=== PATIENT | female | born 1940 | race Caucasian/White ===

== ENCOUNTER 2019-10-01 08:05 | Outpatient (REF) | payer MEDICARE, OTHER, SELFPAY ==
[2019-10-01 13:18] LABS: Chol HDL Ratio 4.18 mg/dL (0.0-4.40); Cholesterol 167 mg/dL (0-200); Glucose 99 mg/dL (65-115); HDL Cholesterol 40 mg/dL (60-100); LDL Cholesterol Calculated 101 mg/dL (50-129); LDL HDL Ratio 2.53 RATIO (0.00-3.22); Triglycerides 131 mg/dL (0-150)
[2019-10-01 13:48] LABS: Estmated Average Glucose 126
== END 2019-10-01 08:06 | disposition home or self-care (01) ==
LOC: LAB 08:05
PROVIDERS: Family Provider Family Medicine; Visit Provider Dermatology
DX: Z01.89 Encounter for other specified special examinations (principal)
CPT/HCPCS: 80061; 82947; 83036

== ENCOUNTER 2020-03-07 15:14 | Outpatient (CLI) | payer MEDICARE, OTHER, SELFPAY ==
--- NOTE | 2020-03-07 16:00 | CT_ITS ---
WS: [id number] CT of the lumbar spine, additional two-dimensional coronal and sagittal imaging was obtained. 03/07/20 Clinical Data: chronic back pain Comparison: None. DLP: 1944.[address] scans at [facility] use at least one of these dose optimization techniques: automat ed exposure control; mA and/or kV adjustment per patient size (includes targeted exams where dose is matched to clinical indication); or iterative reconstruction. Findings: There is an old compression fracture of the anterior superior margin of the L5 vertebral eb dy with loss of 25% of the vertebral body height. There is degenerative disc disease at L5-S1. There is also degenerative disc disease at T12-L1. Minimal osteoarthritic spurring is seen. There is diffus e osteoporosis. The transverse processes and SI joints are not remarkable. There is calcification of the wall of the abdominal aorta which is tortuous but there is no aneurysm. There are probably gallst ones. T12-L1: There is broad disc bulging with mild canal stenosis. L1-L2: There is broad-based disc bulging causing canal stenosis along with facet joint arthritis caus ing foraminal stenosis. L2-L3: There is broad-based disc bulging causing canal stenosis along with facet joint arthritis caus ing foraminal stenosis. L3-L4: There is broad-based disc bulging causing canal stenosis along with ligamentum flavum hypertro phy and facet joint hypertrophy causing foraminal stenosis L4-L5: There is broad-based disc bulging along with facet joint arthritis causing canal and foraminal stenosis. L5-S1: There is a broad base disc bulge along with facet joint arthritis causing canal and foraminal stenosis. CT/CT lumbar spine wo con* [id number] Impression: 1. Probable old compression fracture of the anterior superior margin of L5. 2. Degenerative disc disease at L5-S1 and also T12-L1. 3. Diffuse osteoporosis. 4. Mild osteoarthritic spurring. 5. Multilevel disc bulging and facet joint hypertrophy causing canal and forami nal stenosis.
== END 2020-03-07 15:15 | disposition home or self-care (01) ==
LOC: RADWPI 15:24
PROVIDERS: Family Provider Family Medicine; PCP Family Medicine; Visit Provider Family Medicine
DX: G89.29 Other chronic pain (principal); M51.37 Other intervertebral disc degeneration, lumbosacral region; M81.0 Age-related osteoporosis without current pathological fracture; M48.061 Spinal stenosis, lumbar region without neurogenic claudication
CPT/HCPCS: 72131

== ENCOUNTER → 2020-05-30 11:32 | Outpatient (BNVA) | payer MEDICARE, OTHER, SELFPAY | PROVIDERS: Family Provider Family Medicine; PCP Family Medicine; Visit Provider Family Medicine | DX: I10 Essential (primary) hypertension (principal); M51.36 Other intervertebral disc degeneration, lumbar region | CPT/HCPCS: 80053; 85025 ==

== ENCOUNTER → 2020-08-24 13:50 | Outpatient (BNVA) | payer MEDICARE, OTHER, SELFPAY | PROVIDERS: Family Provider Family Medicine; PCP Family Medicine; Visit Provider Obstetrics & Gynecology | DX: N81.4 Uterovaginal prolapse, unspecified (principal); R33.9 Retention of urine, unspecified; Z79.899 Other long term (current) drug therapy | CPT/HCPCS: 87086 ==

== ENCOUNTER → 2020-11-16 14:58 | Outpatient (BNVA) | payer MEDICARE, OTHER, SELFPAY | PROVIDERS: Family Provider Family Medicine; PCP Family Medicine; Visit Provider Obstetrics & Gynecology | DX: N89.8 Other specified noninflammatory disorders of vagina (principal) | CPT/HCPCS: 87210 ==

== ENCOUNTER → 2021-01-03 08:25 | Outpatient (BNVA) | payer MEDICARE, OTHER, SELFPAY | PROVIDERS: Family Provider Family Medicine; PCP Family Medicine; Visit Provider Family Medicine | DX: I10 Essential (primary) hypertension (principal) | CPT/HCPCS: 80053; 85025 ==

== ENCOUNTER → 2021-01-11 09:59 | Outpatient (BNVA) | payer MEDICARE, OTHER, SELFPAY | PROVIDERS: Family Provider Family Medicine; PCP Family Medicine; Visit Provider Obstetrics & Gynecology | DX: N81.10 Cystocele, unspecified (principal); Z20.822 Contact with and (suspected) exposure to COVID-19 | CPT/HCPCS: 87635 ==

== ENCOUNTER 2021-01-17 09:29 | Observation (INO) | payer MEDICARE, OTHER, SELFPAY ==
[2021-01-15 10:31] VITALS: BMI 22.8
--- NOTE | 2021-01-15 10:42 | ECG_ITS ---
[facility] Test Date: 2021-01-15 Pat Name: Noris Oliveros Department: Room: Gender: Female Tub Chucker: : 1940 Requested By: Rachael Talley Order Number: [id number] Bellamy MD: Ramin Pace M.D. Measurements Intervals [place] Rate: 57 P: 88 VT: 160 QRS: -9 QRSD: 72 T: 25 QT: 446 QTc: 437 Interpretive Statements SINUS BRADYCARDIA No previous ECG available for comparison Electronically Signed On 01-15-2021 16:20:51 CDT by Ramin Pace M.D. [id number]
--- NOTE | 2021-01-15 11:00 | ANES.PREANE2 ---
Pre-Anesthetic Assessment Pre-Anesthetic Assessment: Height/Weight: Height 1.68 m Weight 64.41 kg Preop Diagnosis: cystocele Proposed Procedure: Operation Date: 01/17/21 13:05 Proposed Procedures p Anterior Repair Anterior Colporrhaphy 00853 [id number] N81.10(Not Applicable) - Sang Peraza MD s Sling(Not Applicable) - Sang Peraza MD s Sacrospinous Ligament Fixation(Not Applicable) - Sang Peraza MD Familial anesthetic complications: None Social: Social History: No alcohol and No tobacco Exam: Pre-Anes Outpt Exam: alert, oriented x 3, clear to auscultation bilaterally and regular rate & rhythm Airway: Cervical ROM: WNL MP: 3 Dentition: Full CV/HEM: CV/HEM: HTN Anesthetic Plan: ASA status: 2 Anesthesia: General Risk of > 500 ml blood loss (7ml/kg in children): No PFSH Anesthesia PFSH: Medical History Degenerative disc disease, lumbar Hypertension Sacroiliac inflammation Surgical History History of appendectomy History of total hysterectomy (~1985) SRINIVAS. Performed by Dr. Britt at [facility] in [place], [place]. Family History Sister Diabetes Hypertension Heart disease Family/Other Breast cancer maternal aunt 80's, maternal niece, maternal cousin 40's Denies family history of Colon cancer Ovarian cancer Clotting disorder Hyperlipidemia Anesthesia complication Bleeding disorder Uterine cancer Thyroid condition Stroke Social History (Updated 01/15/21 @ 07:57 by Libby Augustine RN) Smoking and tobacco status: never smoked Alcohol intake: never Substance/Drug Use: never Data Anesthesia Cardiac Studies: No Data to Display
[2021-01-17] VITALS (13 sets, daily range): BP systolic 97–174; BP diastolic 54–85; PULSE 51–67; RESP 18–20; TEMP 36.2–36.6; O2SAT 95–100
[2021-01-17] MEDS: sodium chloride 0.9% 500 ML IV ×3 (07:19→23:04)
[2021-01-17] MEDS: scopolamine 1.5 Patch 1 PATCH TRANSDERMA (07:25)
[2021-01-17 07:28] LABS: Basophils % 0.5 %; Eosinophils # 0.1 10^3/uL (0.0-0.8); Eosinophils % 1.5 %; Hematocrit 37.4 % (37.0-47.0); Hemoglobin 12.7 g/dL (11.5-15.3); Lymphocytes % 17.2 %; Mean Corpuscular Hemoglobin 28.9 pg (28.0-34.0); Monocytes # 0.6 10^3/uL (0.2-0.9); Monocytes % 9.7 %; Neutrophils # 4.29 10^3/uL (1.8-7.7); Neutrophils % 70.8 %; Nucleated Red Blood Cells % 0 %; Platelet Count 239 10^3/cmm (130-400); Red Cell Distribution Width 13.1 % (12.1-15.1); White Blood Count 6.1 10^3/uL (4.0-10.0)
--- NOTE | 2021-01-17 07:33 | P.ANESUD_ITS ---
Pre-Anesthetic Update Pre-Anesthetic Assessment: Date of Surgery/Procedure: 01/17/21 Preop Irma gnosis: POP Q stage III cystocele Proposed Procedure: Operation Date: 01/17/21 08:00 Proposed Procedures p Anterior Repair Anterior Colporrhaphy 55327 [id number] N81.10(Not Applicable) - Sang Peraza MD s Sling(Not Applicable) - Sang Peraza MD s Sacrospinous Ligament Fixation(Not Applicable) - Sang Peraza MD Any changes to Pre-Anesthetic Assessment?: No Last Intake: Intake Last Liquid Date 01/16/21 Last Liquid Time 18:00 Last Solid Date 01/16/21 Last Solid Time 18:00 Labs Last 48hrs: Laboratory Results - last 48 hr 01/17/21 07:15 WBC 6.1 RBC 4.40 Hgb 12.7 Hct 37.4 MCV 85.0 MCH 28.9 MCHC 34.0 RDW 13.1 Plt Count 239 MPV 10.0 Neut % (Auto) 70.8 Lymph % (Auto) 17.2 [place] % (Auto) 9.7 Eos % (Auto) 1.5 Baso % (Auto) 0.5 Neut # (Auto) 4.29 Lymph # (Auto) 1.0 [place] # (Auto) 0.6 Eos # (Auto) 0.1 Baso # (Auto) 0.0 Nucleated RBC % (a uto) 0 Nucleated RBCs # 0.0 Vitals: Temperature 97.6 F 01/17/21 07:08 Temperature Source Temporal Artery S can 01/17/21 07:08 Pulse Rate 66 01/17/21 07:08 Respiratory Rate 18 01/17/21 07:08 Blood Pressure 174/85 01/17/21 07:08 Blood Pressure Amirah n 114 01/17/21 07:08 Pulse Oximetry 97 01/17/21 07:08 Oxygen Delivery Me thod 01/17/21 07:08 Exam: Pre-Anes Outpt Exam: alert, oriented x 3, clear to auscultation bilaterally and regular rate & rhythm Cardiac Studies: No Data to Display
--- NOTE | 2021-01-17 07:45 | W.PM.OPSUD ---
Surgery/Procedure H&P Update DATE OF PROCEDURE: January 17, 2021 DATE H&P PERFORMED: 01/15/21 H&P UPDATE INFORMATION: I have reviewed H&P completed within last 30 days, I have examined patient prior to procedure and No changes to prior documentation PREOP DIAGNOSIS: POP Q stage III cystocele PLANNED PROCEDURE: Operation Date: 01/17/21 08:00 Proposed Procedures p Anterior Repair Anterior Colporrhaphy 37087 [id number] 10529 N81.10(Not Applicable) - Sang Peraza MD s Sling(Not Applicable) - Sang Peraza MD s Sacrospinous Ligament Fixation(Not Applicable) - Sang Peraza MD
[2021-01-17 07:54] LABS: Alanine Aminotransferase 16 U/L (0-33); Albumin Level 4.5 g/dL (3.5-5.2); Alkaline Phosphatase 61 IU/L (35-105); Anion Gap 14.4 (5-19); Aspartate Amino Transferase 28 U/L (0-32); Blood Urea Nitrogen 12 mg/dL (8-23); Calcium 9.8 mg/dL (8.5-10.5); Carbon Dioxide 28 mmol/L (22-29); Chloride 96 mmol/L (98-107); Globulin 4.2 g/dL (1.3-4.6); Glucose 107 mg/dL (65-115); Osmolality Calculated 280 mOsm/kg (285-295); Potassium 3.4 mmol/L (3.5-5.1); Sodium 135 mmol/L (136-145); Total Bilirubin 0.5 mg/dL (0.15-1.2); Total Protein 8.7 g/dL (6.6-8.7)
[2021-01-17] MEDS: sodium chloride 0.9% 1,000 ML 30 ML IV (07:54)
[2021-01-17 09:04] LABS: Add Urine Microscopic? NO; Charge for UA Resulting for Rev
--- NOTE | 2021-01-17 09:05 | P.OP_ITS ---
Operative Report Date of procedure: January 17, 2021 Pre-op Diagnosis: POP Q stage III cystocele Post-op diagnosis: same Procedure Done: Anterior colporrhaphy augmented with allograft and single incision mid urethral sling Pathology: none sent Surgeon: Sang Peraza MD Anesthesia: General Estimated blood loss (mL): 5 IV fluids (mL): 1,000 Urine output (mL): 300 Condition: stable Disposition: PACU Brief History: Mrs. Oliveros 80-year-old female with cystocele stage III and urinary stress incontinence. Procedure: After obtaining informed consent, the patient was taken to the operating room and placed in the supine position, given general anesthesia, and prepped and draped in sterile fashion. The abdomen, vulva and vagina were prepped and draped in a sterile manner. A time out procedure was performed. The anterior vaginal mucosa beneath the midurethra was infiltrated with 0.5% Marcaine with epinephrine. A vertical midline incision was made beneath the midurethra, nearly 1.5 cm length. Careful submucosal dissection was performed bilaterally up to the interior portion of the inferior pubic ramus. The insertion of adductor longus tendon on the patient?s pubic ramus was identified as reference land christen. Palpated the notch along the internal edge of ischiopubic ramus where the adductor longus tendon and the inferior pubic ramus meet. The Altis single incision sling (SIS) was selected. With thin porcine graft the mesh of the sling was lined anteriorly and posteriorly with the graft. Then the needle of the SIS inserted aiming at the location of this notch. One of the integrated self-fixating tips place onto the needle by sliding it over the end of the needle. The needle/sling assembly was inserted toward the location of identified reference notch making sure that the flat of the handle is perpendicular to the desired path. The needle was tracked along the posterior surface of the ischiopubic ramus until the midline christen on the mesh is approximately at the midline position under the urethra. The needle was removed and the same was repeated on the contralateral side until the appropriate sling tension under the urethra was achieved ensuring that the mesh lays flat. The needle was removed and vaginal incision was closed in a running interlocking fashion with 2-0 Vicryl. Then proceed to perform the anterior colporrhaphy. The vaginal mucosa was then injected in the midline with normal saline. The vaginal mucosa was scored in the midline with the Bovie approximately 1 cm medial to the urethral meatus to 1 cm distal to the vaginal cuff. This vaginal mucosa was then undermined and then incised in the midline with the Metzenbaum scissors. The lateral aspects of the vaginal mucosa were then grasped with the Allis clamps and the vaginal mucosa was then dissected off the underlying fascia with the Metzenbaum scissors. Again, there was noted to be quite a bit of oozing at the incision, which was controlled with cautery. After adequate dissection was performed, bilaterally. An Coloplast Allograft is modified at time of application to fit spacea, 3 x 3 cm piece . The Allograft was placed in front of cystocele ready to be implanted facing the vagina mucosa. Suture is placed at distal end of graft and placed towards vaginal cuff. Final suture is placed on proximal portion of the graft to complete the placement overlying the bladder. Then Interrupted vertical mattress sutures of 0 Vicryl were used to elevate the cystocele superiorly. The excessive vaginal mucosa was then trimmed with the Metzenbaum scissors and the vaginal mucosa was then reapproximated in the running interlocking fashion with 2-0 Vicryl. Then the Shearer catheter was removed and cystoscope was inserted. The bladder w as filled with sterile water. Complete evaluation of the bladder mucosa was performed noting no lacerations, dimpling, tears, bleeding of the mucosa or muscular layers. Both ureteral orifices were identified. Prompt excretion of urine from both ureteral orifices was noted. Cystoscope was withdrawn. The Shearer catheter was replaced. Excellent hemostasis was obtained. A vaginal pack is placed overnight as postoperative support for the vaginal tissues after graft placement and closure of vaginal incisions. Sponge, lap, needle, and instrument counts were correct times three. The patient was taken to the recovery room, awake and in stable condition. Associated Problem List Diagnoses (1) POP-Q stage 3 cystocele:
--- NOTE | 2021-01-17 09:20 | SUR.PHASEI ---
PT AWAKE ALERT DENIES PAIN AND NAUSEA, PT TALKATIVE WITH DR MARIE NO COMPLAINTS, VSS.
[2021-01-17 09:23] LABS: Bilirubin Urine Neg (Negative); Blood Urine Neg (Negative); Glucose Urine UA Norm (Normal); Ketones Urine Negative (Negative); Leukocyte Esterase Urine Negative (Negative); Nitrate Urine Negative (Negative); Protein Urine Neg (Negative); Specific Gravity, Urine 1.005 (1.005-1.030); Sulfosalicylic Acid Urine Negative (Negative); Urine Appearance Clear (CLEAR); Urine Color Straw (Yellow); Urobilinogen Urine Norm (Negative); pH Urine 8 (5-7)
--- NOTE | 2021-01-17 10:04 | PC.NURSE ---
Patient arrived to OB floor from PACU at this time, Pain 0/10. No complaints or needs at this time
[2021-01-17] MEDS: ketorolac 30 mg/mL INJ IVP ×3 (11:03→23:04)
--- NOTE | 2021-01-17 13:52 | ANE.PACU2 ---
Inpatient post-anesthesia follow up: Airway intact: Yes Vital signs: Temperature 97.7 F Pulse Rate 67 Respiratory Rate 18 Blood Pressure 122/58 Pulse Oximetry 96 Oxygen Delivery Me thod Room Air Oxygen Flow Rate 8 Fraction of Inspir ed Oxygen Hydration adequate: Yes Nausea and vomiting: No Pain level: 3 Mental status: Baseline
--- NOTE | 2021-01-17 15:21 | PC.NURSE ---
Went into patients room to get patient up to chair, she states that she would like to nap and will call out when she would like to get up.
[2021-01-17] MEDS: docusate sodium 100 mg Capsule PO (17:28)
[2021-01-17] MEDS: dextrose 5%-lactated ringers 1,000 ML 125 ML IV (17:28)
[2021-01-18 00:13] VITALS: BP 131/65; PULSE 64; RESP 16; O2SAT 97
[2021-01-18] MEDS: dextrose 5%-lactated ringers 1,000 ML 125 ML IV (02:15)
[2021-01-18 04:45] VITALS: BP 149/65; PULSE 60; RESP 16; O2SAT 97
[2021-01-18 04:55] LABS: Hematocrit 29.5 % (37.0-47.0); Hemoglobin 9.7 g/dL (11.5-15.3); Mean Corpuscular HGB Conc 32.9 g/dL (30.0-36.0); Mean Corpuscular Hemoglobin 28.6 pg (28.0-34.0); Platelet Count 165 10^3/cmm (130-400); Red Blood Count 3.39 10^6/uL (4.1-5.3); Red Cell Distribution Width 13.3 % (12.1-15.1); White Blood Count 7.3 10^3/uL (4.0-10.0)
--- NOTE | 2021-01-18 08:11 | P.DS_ITS ---
Discharge Providers PRODUCT SAFETY ASSOCIATE Date of Admission: 01/17/21 09:29 Date of Discharge: 01/18/21 Attending Provider at Admission: Sang Peraza MD Attending Provider at Discharge: Sang Peraza MD Primary Care Provider: Abeba Han MD Diagnoses at Discharge Discharge Diagnosis (1) Anemia: Status: Acute (2) Status post anterior colporrhaphy: Status: Acute Reason for Visit Reason for Visit: cystocele stage 3 Hospital Course Hospital Course Mrs. Henderson 80-year-old female with cystocele stage III. Admitted for an anterior colporrhaphy augmented with allograft and mid urethral sling. The procedures were performed without complications. Overnight observation uneventful for decrease urine output, given IV bolus. She is afebrile and hemodynamically stable. Tolerating diet well. Refers no pain. Ambulating without difficulty.. Physical Exam Narrative: EXAM NARRATIVE: GA: Alert and oriented ?3. HEENT: WNL. Heart: Regular rate and rhythm. Lungs: Clear to auscultation bilaterally. Abdomen: Bowel sounds present, nontender, minimal tenderness, incision clean and dry, no redness, pain or edema. SANDWICH AND DRINK CART OPERATOR: Spotting. Extremities: No edema, no cyanosis, no calves pain. Urinary Catheter Management^: Shearer: Cath Placed During This Visit: yes, but has since been removed by the nurse Reason for Continuing Indwelling Catheter: Decision to DC Catheter Urinary Catheter Date of Insertion: 01/17/21 Urinary Catheter Time of Insertion: 08:15 Date Urinary Catheter Removed: 01/18/21 Time Urinary Catheter Discontinued: 06:26 Discharge Data Data Completed and Pending: Pending at discharge Category Date Time Status Retype for Jasbir s ABO/Rh Routine Lab 01/17/21 09:39 Ordered Labs from last 24 hours 01/18/21 01/17/21 01/17/21 04:40 08:15 07:15 WBC 7.3 RBC 3.39 L Hgb 9.7 L Hct 29.5 L MCV 87.0 MCH 28.6 MCHC 32.9 RDW 13.3 Plt Count 165 MPV 10.0 Urine Color Straw Urine Appearance Clear Urine pH 8 H Ur Specific Gravit y 1.005 Urine Protein Neg Urine Glucose (UA) Norm Urine Ketones Negative Urine Blood Neg Urine Nitrate Negative Urine Bilirubin Neg Prot Sulfosalicyli c Acd Negative Urine Urobilinogen Norm Ur Leukocyte Jaclyn ase Negative Blood Type O Positive Rho(D) Type Positive / 4+ Antibody Screen Negative Vitals: Last Vital Signs Temp 97.7 F 01/17/21 16:35 Pulse 60 01/18/21 04:45 Resp 16 01/18/21 04:45 BP 149/65 01/18/21 04:45 Pulse Ox 97 01/18/21 04:45 Discharge Plan Discharge Patient Disposition: Home Condition: Stable Prescriptions: New acetaminophen 325 mg capsule 325 mg PO Q4H PRN (Reason: fever or postoperative pain pain) Qty: 60 RF: 0 ibuprofen 800 mg tablet 800 mg PO TID PRN (Reason: pain) Qty: 60 RF: 0 docusate sodium [Colace] 100 mg capsule 100 mg PO BID Qty: 60 RF: 0 ferrous sulfate [Iron (ferrous sulfate)] 325 mg (65 mg iron) tablet 325 mg PO BID Qty: 60 RF: 0 Continued aspirin [Adult Low Dose Aspirin] 81 mg tablet,delayed release (DR/EC) 81 mg PO DAILY RF: 0 amlodipine 2.5 mg tablet 2.5 mg PO DAILY Qty: 90 RF: 1 hydrochlorothiazide 25 mg tablet 25 mg PO DAILY Qty: 90 RF: 1 metoprolol tartrate 50 mg tablet 50 mg PO DAILY Qty: 90 RF: 1 Discharge Orders: Discharge Order (Routine); Ordered 01/18/21 Ordered By: Sang Peraza Referrals: Sang Peraza MD [Physician] - 2 weeks (If discharged home with a Shearer catheter follow-up at the clinic Friday) Discharge Diet: Usual diet Discharge Activity: Increase activity as tolerated Patient Instructions: Opioid Safety, Anterior Vaginal Repair (DC), Bladder Sling Procedures (DC) Activity Restrictions/Additional Instructions: 1. Please call [facility] on next working day to make your post-operative appointment in 2 weeks. 2. Please stay home until you come back to the clinic on first post-operative check up. 3. Please follow instructions on your medications CAREFULLY. 4. If you have abdominal incision, do not cover it unless dressing is necessary because of drainage. OK to shower, but avoid bath. Leave steri-strips until they fall off. If they are still on one week after surgery, you may remove them. 5. If you had vaginal surgery or vaginal repair, Dr. Peraza may instruct you to take SITZ bath. 6. Yellow, blood tinged odorous vaginal discharge is usually normal after hysterectomy or vaginal surgeries. 7. No sexual intercourse, tampons, or douches until you are completely released from the post-operative care. 8. Avoid constipation by eating right and maybe using some Metamucil or Milk of Magnesia. 9. All prescription refills are given during the working hours. Please do no wait till it runs out. Call the clinic at [phone] before your medication runs out. The clinic will get in touch with your doctor to prescribe medications if necessary. 10. Please remain within 40 mile radius from our hospital because emergencies do happen now and then during the post-operative period. 11. If you have stairs at home, take one step at a time slowly and minimize the number of trips. It helps to stay in one floor for the next few days. No lifting except what you can lift by one hand until you are released from the post-operative care. 12. Driving is discouraged until you are well healed. It may be 3-4 weeks before you feel strong enough to drive. You should be able to turn and look through the rear window without pain and you should be able to push the brake pedal very hard without pain before you drive. No fast rules, but SAFETY should be your primary concern. DO NOT drive if you are on sedating medications such as narcotics. 13. Call the clinic (during working hours) to make urgent appointment or go to the Emergency room, if any of the following occurs: i. Vaginal bleeding becomes heavy, more than a period. ii. Incision becomes red and sore, or drains pus. iii. Your temperature is over 100.4 or you have chill. iv. IV site becomes red and swollen (a little ``knot?? is usually OK) v. Persistent nausea and vomiting vi. Persistent constipation or diarrhea vii. Rash or allergic reaction to medications. Discharge Attestations PRODUCT SAFETY ASSOCIATE Time Spent in Discharge Care*: greater than 30 min Coding Level of Care Code Acute Vault Installer for Marcela Mccormick Diagnoses Anemia D64.9 Status post anterior colporrhaphy Z98.890
[2021-01-18] MEDS: ibuprofen 800 mg tablet PO (09:13)
[2021-01-18] MEDS: amlodipine 5 mg Tablet 2.5 MG PO (09:14)
[2021-01-18] MEDS: docusate sodium 100 mg Capsule PO (09:14)
[2021-01-18] MEDS: aspirin 81 mg EC Tablet PO (09:14)
[2021-01-18] MEDS: metoprolol tartrate 50 mg Tablet PO (09:14)
[2021-01-18] MEDS: hydroCHLOROthiazide 25 mg Tablet PO (09:14)
[2021-01-18 09:21] VITALS: BP 152/69; PULSE 69; RESP 16; TEMP 36.7; O2SAT 98
== END 2021-01-18 10:10 | disposition home or self-care (01) ==
LOC: OBGYN 09:30
PROVIDERS: Admitting Provider Obstetrics & Gynecology; PCP Family Medicine; Visit Provider Obstetrics & Gynecology
PROC: 0JQC0ZZ Repair Pelvic Region Subcutaneous Tissue and Fascia, Open Approach (ICD-10-PCS; CPT 57240; principal; 2021-01-17 08:00)
PROC: (CPT 57288; 2021-01-17 08:00)
PROC: 0TJB8ZZ Inspection of Bladder, Via Natural or Artificial Opening Endoscopic (ICD-10-PCS; CPT 52000; 2021-01-17 08:00)
DX: N81.10 Cystocele, unspecified (principal); D64.9 Anemia, unspecified; I10 Essential (primary) hypertension; M19.90 Unspecified osteoarthritis, unspecified site; Z79.82 Long term (current) use of aspirin; Z82.49 Family history of ischemic heart disease and other diseases of the circulatory system; Z83.3 Family history of diabetes mellitus
CPT/HCPCS: 57240; 57288; 36415; 51798; 80053; 81003; 85025; 85027; 86850; 86900; 93005; C1713; C1762; G0378; J0690; J1100; J1885; J2405; J2704; J3010; J3490; J7030; J7040

== ENCOUNTER 2021-03-20 09:31 | Outpatient (CLI) | payer MEDICARE, OTHER, SELFPAY ==
--- NOTE | 2021-03-20 09:46 | MM_ITS ---
WS: [id number] Exam: [id number] Date/Time of Exam: 03/20/2021 9:46 AM Reason For Exam: SCREENING VIEWS: MLO and CC views both breasts. Comparison made with prior exam of 08/23/2015, 05/18/2018, 07/29/2019.. Findings: There was no sign of mass, architectural distortion or suspicious calcification in either breast. He terogeneously dense MM/[id number] Impression: BI-RADS: 2-Benign FOLLOW-UP: 1 Year Follow-up This mammogram was also analyzed by the Computer Aided Detection System R2 Imag e Industrial Electrician.
== END 2021-03-20 09:32 | disposition home or self-care (01) ==
LOC: RADSHAW 09:38
PROVIDERS: PCP Family Medicine; Visit Provider Family Medicine
DX: Z12.31 Encounter for screening mammogram for malignant neoplasm of breast (principal)
CPT/HCPCS: 77067

== ENCOUNTER → 2021-04-05 11:13 | Outpatient (BNVA) | payer MEDICARE, OTHER, SELFPAY | PROVIDERS: PCP Family Medicine; Visit Provider Family Medicine | DX: D64.9 Anemia, unspecified (principal); M46.1 Sacroiliitis, not elsewhere classified; M51.36 Other intervertebral disc degeneration, lumbar region | CPT/HCPCS: 85018 ==

== ENCOUNTER → 2021-06-08 10:40 | Outpatient (BNVA) | payer MEDICARE, OTHER, SELFPAY | PROVIDERS: PCP Family Medicine; Visit Provider Family Medicine | DX: Z20.822 Contact with and (suspected) exposure to COVID-19 (principal) | CPT/HCPCS: 87426 ==

== ENCOUNTER 2021-06-09 12:34 | Inpatient (IN) | payer MEDICARE, OTHER, SELFPAY ==
[2021-06-09] VITALS (12 sets, daily range): BP systolic 118–149; BP diastolic 71–88; PULSE 74–92; RESP 16–20; TEMP 36.8–38.3; O2SAT 91–97; BMI 22.2
--- NOTE | 2021-06-09 12:49 | ED_ITS ---
HPI - COVID General: Chief Complaint: COVID symptoms Stated Complaint: Covid+, referred by for poss infusion Time Seen by Provider: 06/09/21 12:43 History of Present Illness: HPI Narrative: 80-year-old female presents due to being Covid positive requiring infusion. States she has a mild cough. Diagnosed yesterday. Symptoms started 3 days ago. Denies any chest pain shortness of breath. Denies any fevers or chills. She states she does not desire further work-up and is here for Covid antibody infusion. COVID Results: SARS-CoV-2 Antigen (Rapid) Positive (Negative) H 06/08/21 10:40 06/08/21 Nasal/Oral Coronavirus 2019 PCR Not detected 01/11/21 09:59 01/11/21 Review of Systems Narrative: - CONSTITUTIONAL: Denies weight loss, fever and chills. - HEENT: Denies changes in vision and hearing. - RESPIRATORY: As above - CV: Denies palpitations and CP. - GI: Denies abdominal pain, nausea, vomiting and diarrhea. - : Denies dysuria and urinary frequency. - MSK: Denies myalgia and joint pain. - SKIN: Denies rash and pruritus. - NEUROLOGICAL: Denies headache, weakness, numbness and syncope. - PSYCHIATRIC: Denies suicidal ideation PFSH ED PFSH: Medical History Degenerative disc disease, lumbar Hypertension Sacroiliac inflammation Surgical History History of appendectomy History of total hysterectomy (~1985) SRINIVAS. Performed by Dr. Britt at [facility] [place] in [place], [place]. Family History Sister Diabetes Hypertension Heart disease Family/Other Breast cancer maternal aunt 80's, maternal niece, maternal cousin 40's Denies family history of Colon cancer Ovarian cancer Clotting disorder Hyperlipidemia Anesthesia complication Bleeding disorder Uterine cancer Thyroid condition Stroke Social History Smoking and tobacco status: never smoked Alcohol intake: never Physical Exam Narrative: EXAM NARRATIVE: - GENERAL: Alert and oriented x 3. No acute distress. Well-nourished. - EYES: EOMI. Anicteric. - HENT: Atraumatic, no C-spine tenderness. Moist mucous membranes. No scleral icterus. No cervical lymphadenopathy. - LUNGS: Clear to auscultation bilaterally. No accessory muscle use. Equal lung sounds bilaterally. No respiratory distress. - CARDIOVASCULAR: Regular rate and rhythm. No murmur. No JVD. - ABDOMEN: Soft, non-tender and non-distended. Negative CVA tenderness bilaterally, no rebound or guarding, negative Dixon sign. No palpable masses. - EXTREMITIES: No edema. Non-tender. - SKIN: No rashes or lesions. Warm. - NEUROLOGIC: No meningismus or focal neurological deficits. CN II-XII grossly intact. - PSYCHIATRIC: Cooperative. Appropriate mood and affect. Course Vital Signs: Vital signs: Vital Signs Temperature 98.2 F 06/09/21 12:48 Pulse Rate 85 06/09/21 12:48 Respiratory Rate 16 06/09/21 12:48 Blood Pressure 140/83 06/09/21 12:48 Pulse Oximetry 96 06/09/21 12:48 MDM - COVID MDM Narrative: Medical decision making narrative: 80-year-old female presents due to being Covid positive and wanting region fusion. She does meet criteria for infusion. Otherwise she is medically stable afebrile nontoxic-appearing. She is asymptomatic other than mild cough. She states he does not desire any further work-up at this time I think this is reasonable. Region fusion provided without acute reaction. At this time I believe patient would be safe for discharge and outpatient follow-up. Return precautions provided. Plan was reviewed with the patient who expressed understanding. Questions answered. Patient will follow up with PCP. Patient discharged in stable condition. COVID Results: SARS-CoV-2 Antigen (Rapid) Positive (Negative) H 06/08/21 10:40 06/08/21 Nasal/Oral Coronavirus 2019 PCR Not detected 01/11/21 09:59 01/11/21 Monoclonal Antibody - ED Inclusion/Exclusion Criteria age >/= 12 years, weight >/= 40kg /88lbs, symptom onset less than 10 days ago and + direct Sars-Cov-2 test less than 7-10 days ago age >/= 65 not requiring hospitalization, not requiring oxygen (if not chronically on oxygen) and no increase oxygen requirement (if chronically on oxygen) Patient education patient/family/caregiver received/reviewed fact sheet, Emergency Use Authorization/unapproved drug status discussed with patient/family/caregiver, alternatives to this treatment discussed with patient/family/caregiver, risks and benefits of medication reviewed with patient/family/caregiver, patient/family/caregiver given opportunity for questions, which were answered and patient consents to receiving Monoclonal Antibody Treatment Plan for treatment Meets criteria for Monoclonal Antibody infusion Date of symptom(s) onset: 06/06/21 Where are the positive COVID test results, if positive?: Resulted in [facility] Ordering Monoclonal Antibody infusion for today Discharge Plan Discharge Patient Disposition: Home Clinical Impression: COVID-19 Condition: Stable Prescriptions: No Action oxybutynin chloride 5 mg tablet extended release 24hr 5 mg PO DAILY 30 Days Qty: 30 RF: 0 aspirin [Adult Low Dose Aspirin] 81 mg tablet,delayed release (DR/EC) 81 mg PO DAILY RF: 0 amlodipine 2.5 mg tablet 2.5 mg PO DAILY Qty: 90 RF: 1 hydrochlorothiazide 25 mg tablet 25 mg PO DAILY Qty: 90 RF: 1 metoprolol tartrate 50 mg tablet 50 mg PO DAILY Qty: 90 RF: 1 acetaminophen 325 mg capsule 325 mg PO Q4H PRN (Reason: fever or postoperative pain pain) Qty: 60 RF: 0 ibuprofen 800 mg tablet 800 mg PO TID PRN (Reason: pain) Qty: 60 RF: 0 Discharge Orders: Discharge ED (Routine); Ordered 06/09/21 Ordered By: Ronald Trejo Referrals: Abeba Han MD [Primary Care Provider] - Patient Instructions: Opioid Safety Coding Level of Care Code ED Cylinder Press Feeder for Marcela Mccormick
--- NOTE | 2021-06-09 13:37 | PC.NURSE ---
Called Jin at [phone] and notified him of progress.
--- NOTE | 2021-06-09 14:35 | PC.NURSE ---
Pt infusion complete. Pt is on 1 hour wait time until 1530.
--- NOTE | 2021-06-09 14:40 | PC.NURSE ---
Called and notified the son that the pt is on 1 hour post infusion time.
--- NOTE | 2021-06-09 15:38 | ECG_ITS ---
[facility] Test Date: 2021-06-09 Pat Name: Noris Oliveros Department: Room: Gender: Female Hand Counter: : 1940 Requested By: Ronald Trejo Order Number: [id number] Mia MD: Ruthie Brizuela M.D. Measurements Intervals [place] Rate: 71 P: -32 CT: 134 QRS: 63 QRSD: 81 T: 1 QT: 415 QTc: 454 Interpretive Statements SINUS RHYTHM WITH OCCASIONAL SUPRAVENTRICULAR PREMATURE COMPLEXES MINIMAL VOLTAGE CRITERIA FOR LVH, CONSIDER NORMAL VARIANT [MEETS CRITERIA IN ONE OF: R(aVL), S(V1), R(V5), R(V5/V6)+S(V1)] Compared to ECG 01/15/2021 10:53:59 Sinus bradycardia no longer present Electronically Signed On 06-10-2021 21:08:56 CDT by Ruthie Brizuela M.D. [id number]
--- NOTE | 2021-06-09 16:05 | XRR_ITS ---
PROCEDURE INFORMATION: Exam: XR Chest Exam date and time: 06/09/2021 4:05 PM Age: 80 years old Clinical indication: Injury or trauma; Fall; Blunt trauma (contusions or hematomas); Patient HX: Near syncope episode; Additional info: SOB TECHNIQUE: Imaging protocol: XR of the chest. Views: 1 view. Total images: 1 COMPARISON: No relevant prior studies available. FINDINGS: Lungs: Right lower lobe pneumonitis/pneumonia. COPD/chronic bronchitis. Mild senile fibrosis. Pleural spaces: Unremarkable. No pleural effusion. No pneumothorax. Heart/Mediastinum: Cardiac structures and configuration with mild cardiomegaly and arteriosclerosis. Bones/joints: Mild scoliosis. XR/XR chest 1V portable [id number] IMPRESSION: Right lower lobe pneumonitis/pneumonia. Radiation Dose CTDIVOL = (mGy): DLP = (mGy-cm)
[2021-06-09 16:33] LABS: Basophils % 0.2 %; Hematocrit 36.7 % (37.0-47.0); Hemoglobin 12.6 g/dL (11.5-15.3); Lymphocytes # 0.4 10^3/uL (0.8-4.8); Lymphocytes % 6.6 %; Mean Corpuscular HGB Conc 34.3 g/dL (30.0-36.0); Mean Corpuscular Hemoglobin 28.6 pg (28.0-34.0); Mean Corpuscular Volume 83.2 fl (81-99); Mean Platelet Volume 10.1 fL (7.4-10.4); Monocytes # 0.2 10^3/uL (0.2-0.9); Monocytes % 3.6 %; Neutrophils # 4.74 10^3/uL (1.8-7.7); Neutrophils % 89.2 %; Nucleated Red Blood Cells % 0 %; Platelet Count 138 10^3/cmm (130-400); Red Blood Count 4.41 10^6/uL (4.1-5.3); Red Cell Distribution Width 13.2 % (12.1-15.1); White Blood Count 5.3 10^3/uL (4.0-10.0)
[2021-06-09 16:43] LABS: D Dimer 4.58 ug/mIFEU (0-0.59)
--- NOTE | 2021-06-09 16:47 | PC.NURSE ---
Upon discharge the pt, I told her to stay in place while I went to call her son to have him pull the car around. I just reached the desk when I heard a loud commotion and ran to the room and she was in the floor. When I asked what had happened, the pt stated I was wanted to put my jacked on and I fell . When I asked if she was ok, id anything hurt and she replied No . Allyson BEARD notified the provider. This nurse and Allyson BEARD got her up out of the floor and back to bed. Provider assessed her and put in orders for EKG and orthostatic vitals.
--- NOTE | 2021-06-09 16:52 | PC.NURSE ---
Called Jin at 1600, the patients son and notified him that upon discharge the patient fell, but was not injured. Notified him that the provider put in orders, and that the patient would be here longer and that I would keep him posted.
--- NOTE | 2021-06-09 16:55 | PC.NURSE ---
Provider ordered Orthostatic vitals on the patient. Supine: HR: 78 O2 sat: 96 BP: 137/81 Sitting: HR: 75 O2 sat: 79 BP: 103/62 Standing: HR: 86 O2 sat: 86 BP: 108/74 Provider notified.
[2021-06-09 16:56] LABS: Troponin T (5th) Once 18 ng/L (0-10)
[2021-06-09 17:06] LABS: Alanine Aminotransferase 252 U/L (0-33); Albumin Level 3.6 g/dL (3.5-5.2); Alkaline Phosphatase 59 IU/L (35-105); Anion Gap 14.9 (5-19); Aspartate Amino Transferase 279 U/L (0-32); Blood Urea Nitrogen 14 mg/dL (8-23); Calcium 8.5 mg/dL (8.5-10.5); Carbon Dioxide 29 mmol/L (22-29); Chloride 82 mmol/L (98-107); Globulin 3.8 g/dL (1.3-4.6); Glucose 108 mg/dL (65-115); NT Pro B Type Natriuretic Pept 647 pg/mL (0-450); Osmolality Calculated 257 mOsm/kg (285-295); Sodium 123 mmol/L (136-145); Total Bilirubin 0.6 mg/dL (0.15-1.2); Total Protein 7.4 g/dL (6.6-8.7)
--- NOTE | 2021-06-09 17:08 | CTR_ITS ---
PROCEDURE INFORMATION: Exam: CTA Chest With Contrast Exam date and time: 06/09/2021 5:08 PM Age: 80 years old Clinical indication: Shortness of breath; Patient HX: Covid+ C/O SOB w near syncope TECHNIQUE: Imaging protocol: Computed tomographic angiography of the chest with contrast. 3D rendering (Not supervised by radiologist): MIP and/or 3D reconstructed images were created by the technologist. Total images: 809 Radiation optimization: All CT scans at this facility use at least one of these dose optimization techniques: automated exposure control; mA and/or kV adjustment per patient size (includes targeted exams where dose is matched to clinical indication); or iterative reconstruction. Contrast material: OMNI 350; Contrast volume: 64 ml; Contrast route: INTRAVENOUS (IV); COMPARISON: CR XR chest 1V portable [id number] 06/09/2021 4:28 PM RADIATION DOSE METRICS: Total DLP (mGy-cm): 453.32 FINDINGS: Pulmonary arteries: No visible evidence of pulmonary embolism/pulmonary arterial thrombus. Aorta: The thoracic aorta is nonaneurysmal. No visible intimal flap or dissection. Moderate arterial sclerotic disease. Tortuous thoracic aorta which can be seen in hypertensive cardiovascular disease. Bovine aortic arch which is a normal anatomical variant. Thyroid: Multiple thyroid nodules. Dominant right thyroid nodule measuring approximately 19 mm maximum diameter. Left dominant thyroid nodule measuring approximately 11 mm in diameter. No follow-up recommended. Lungs: Bilateral, predominantly peripheral, patches of ground-glass interstitial lung disease opacification consistent with active interstitial pneumonitis. Overall constellation of findings would be consistent with Covid-19 pneumonitis. Mild peripheral acinar emphysema lung apices. Pleural spaces: No pneumothorax. No pleural effusion. Heart: Cardiomegaly. No visible pericardial effusion. Left ventricular prominence. Coronary artery disease. Lymph nodes: Marginally prominent mediastinal and hilar lymph nodes most likely reactive in nature. Diaphragm: Small hiatal hernia. Liver: Few small simple hepatic cysts. Kidneys and ureters: Incidental note of a small exophytic structure off the superior pole of the left kidney without simple cystic characteristics measuring 12 mm. Would recommend follow-up nonurgent/nonemergent ultrasound to assess cyst versus solid. Evidence of bilateral renal cortical cysts. Bones/joints: No visible active or acute osseous pathology. Osteopenia/osteoporosis. Scoliosis. Age-appropriate degenerative disease. Ankylosis versus failure segmentation/hemivertebra T5 through T8. Soft tissues: Unremarkable for age. CT/CT angio chest PE protcl [id number] IMPRESSION: 1. No visible evidence of pulmonary embolism/pulmonary arterial thrombus. 2. Bilateral, predominantly peripheral, patches of ground-glass interstitial lung disease opacification consistent with active interstitial pneumonitis. Overall constellation of findings would be consistent with Covid-19 pneumonitis. 3. Incidental note of a small exophytic structure off the superior pole of the left kidney without simple cystic characteristics measuring 12 mm. Would recommend follow-up nonurgent/nonemergent ultrasound to assess cyst versus solid. 4. Other nonurgent, nonemergent, chronic, and age related findings as detailed in text above. COMMENTS: 1. Consistent with the [employer]'s Incidental Findings Committee white paper (J Am Abhishek Radiol 2015): In patients aged 35 years and older with an incidental thyroid nodule equal to or greater than 1.[address], MRI or extrathyroidal US, further evaluation with dedicated thyroid US is recommended for patients with normal life expectancy and without comorbidities. For smaller nodules without suspicious features, no further evaluation or follow up is recommended. 2. Consistent with the [employer]'s Incidental Findings Committee white paper (J Am Abhishek Radiol 2018): Any incidental renal lesion less than 1 cm or classified as too small to characterize, or any incidental cystic renal lesion characterized as simple-appearing, is likely benign. No follow-up imaging is recommended for these lesions per consensus recommendations based on imaging criteria. Radiation Dose CTDIVOL = (mGy): DLP = 453.32 (mGy-cm)
[2021-06-09 17:14] LABS: Potassium 2.9 mmol/L (3.5-5.1)
[2021-06-09] MEDS: potassium chloride premix 100 ML 25 MEQ IV (17:55)
[2021-06-09] MEDS: iohexol 350 mg/mL 100 mL Btl IV (18:40)
--- NOTE | 2021-06-09 19:14 | PC.NURSE ---
Gave report Lin .
[2021-06-09] MEDS: acetaminophen 325 mg Tablet 650 MG PO (20:50)
[2021-06-09 21:25] LABS: Lactate (Lactic Acid level) 1.3 mmol/L (0.5-2.2)
--- NOTE | 2021-06-09 21:40 | PM.HP ---
Providers/Chief Complaint Admitting Physician: Grzegorz Hackett Primary Care Provider: Abeba Han MD Chief Complaint: Covid+, referred by for poss infusion History of Present Illness 80-year-old past medical history significant for cystocele stage 3, hypertension who presented to the hospital with covid-19 symptoms. Patient stated she has been feeling weak, poor appetite. Denied shortness of breath however noted mild cough. Upon arrival to emergency room patient was taken for COVID-19 antibody infusion after noted to have positive rapid antigen. After completion of infusion at time of discharge patient had a syncopal event upon standing. She was found to have oxygen saturation of 79%. Requiring 2 L of O2 via nasal cannula. Laboratory workup showed a WBC of 5.3, hemoglobin of 12.6, hematocrit 36.7 and platelet count of 138. D-dimer of 4.58. Sodium of 123, potassium 2.9, chloride of 82, bicarb 29, BUN 14 and a creatinine of 0.7. AST of 279, ALT of 252, alkaline phosphatase of 59. Troponin T of 18. ProBNP of 647. Imaging studies included chest x-ray which showed right lower lobe pneumonitis/pneumonia. CTA of chest showed no visible evidence of pulmonary embolism, bilateral predominantly peripheral patches of ground-glass interstitial lung disease opacification consistent with active interstitial pneumonitis. Patient Rocephin 2g IV x1, azithromycin 500 mg IV x1. Review of Systems General: Reports: 10 or more systems reviewed and unremarkable except in HPI and below Medications/Allergies Home Medications Medication Instructions Recorded Confirmed Last Taken Type aspirin 81 mg tablet,delayed 81 mg PO DAILY 12/28/19 06/09/21 06/09/21 History release amlodipine 2.5 mg tablet 2.5 mg PO DAILY #90 tab 12/14/20 06/09/21 06/09/21 Rx hydrochlorothiazide 25 mg tablet 25 mg PO DAILY #90 tab 12/14/20 06/09/21 06/09/21 Rx metoprolol tartrate 50 mg tablet 50 mg PO DAILY #90 tab 12/14/20 06/09/21 06/08/21 Rx acetaminophen 325 mg PO Q4H PRN #60 cap 01/18/21 06/09/21 Unknown Rx ibuprofen 800 mg PO TID PRN #60 tab 01/18/21 06/09/21 Unknown Rx oxybutynin chloride 5 mg 5 mg PO DAILY 30 Days #30 tab 07/06/21 10/16/21 10/15/21 Rx tablet,extended release 24 hr Allergies Allergy/AdvReac Type Severity Reaction Status Date / Time No Known Allergies Allergy Verified 04/05/21 10:00 PFSH Acute PFSH: Medical History Degenerative disc disease, lumbar Hypertension Sacroiliac inflammation Surgical History History of appendectomy History of total hysterectomy (~1985) SRINIVAS. [place]. Britt [place] [facility] [place], [place]. Family History Sister Diabetes Hypertension Heart disease Family/Other Breast cancer maternal aunt 80's, maternal niece, maternal cousin 40's Denies family history of Colon cancer Ovarian cancer Clotting disorder Hyperlipidemia Anesthesia complication Bleeding disorder Uterine cancer Thyroid condition Stroke Social History Smoking and tobacco status: never smoked Alcohol intake: never Vitals/I&O/Wt Last Vital Signs Temp 98.4 F 06/10/21 00:44 Pulse 84 06/10/21 01:59 Resp 18 06/10/21 01:59 BP 130/70 06/10/21 01:59 Pulse Ox 93 06/10/21 01:59 06/09/21 06/09/21 06/10/21 14:59 22:59 06:59 Intake Total 110 / 110 Balance 110 / 110 Weight last 48 hrs Weight 64.41 kg Weight 62.596 kg Physical Exam Narrative: EXAM NARRATIVE: General: Alert, awake oriented x3 on RA HEENT: Grossly unremarkable CVS: Non-labored respiration Abd: Soft, NT, ND Ext: No edema Data : 06/09/21 16:15 06/09/21 16:15 Micro: Microbiology 06/09/21 20:50 Blood Culture - Preliminary Blood SPECIMEN COLLECTED 06/09/21 20:50 Blood Culture - Preliminary Blood SPECIMEN COLLECTED A&P Assessment and plan (1) COVID-19: Status: Acute (2) Pneumonia due to COVID-19 virus: Status: Acute (3) Syncope and collapse: Status: Acute (4) Hyponatremia: Status: Acute (5) Hypokalemia: Status: Acute (6) Transaminitis: Status: Acute (7) DVT prophylaxis: Status: Acute Additional A&P Information Syncopal event Likely due to hypoxia Will obtain echo Replace electrolytes Monitor on tele Fall precautions Check orthostatic Neuro-checks COVID-19 Pneumonia Decadron 6 mg IV daily Will hold off on remdesivir Empirically cover for superimposed bacterial Ceftriaxone / Azithromycin Duoneb Supplemental 02 as needed On RA currently Inflammatory labs in am Droplet precautions Hyponatremia / Hypokalemia Due to above Replaced in ER Repeat K in am On tele Elevated LFTs AST 279 ALT 252 Due to covid-19 Trend LFTs Consider US if worsening DVT ppx Lovenox 40 mg SQ daily Attestations Medical Necessity Statement*: Anticipate over2 midnights stay in hospital for evaluation treatment Time Spent in Patient Care: Greater than 35 minutes (>than 50% of time spent in counselling and/or direct pt care on unit). Coding Level of Care Code Acute Velocity Shooter for [facility] Fwd Diagnoses COVID-19 U07.1 Pneumonia due to COVID-19 virus U07.1; J12.82 Syncope and collapse R55 Hyponatremia E87.1 Hypokalemia E87.6 Transaminitis R74.01 DVT prophylaxis Z29.9
[2021-06-10] VITALS (10 sets, daily range): BP systolic 122–156; BP diastolic 68–79; PULSE 75–86; RESP 16–18; TEMP 36.8–37.1; O2SAT 90–94; BMI 22.8
[2021-06-10] MEDS: azithromycin 500 MG in sodium chloride 0.9% 250 ML 250 MG IV (00:46)
--- NOTE | 2021-06-10 04:42 | USCV_ITS ---
Noris Oliveros Age: 80 Gender: F : 1940 Exam Date: 06/10/2021 07:54 Ordering Phys: Grzegorz Hackett MD Technologist: Exam Location: [facility] [place] Indication: SYNCOPE BP: 132 / 74 HR: 81 Rhythm: Sinus Technical Quality: Adequate MEASUREMENTS (Male / Female) Normal Values 2D ECHO LV Diastolic Diameter PLAX 3.5 cm 4.2 - 5.9 / 3.9 - 5.3 cm LV Systolic Diameter PLAX 2.7 cm IVS Diastolic Thickness 1.1 cm 0.6 - 1.0 / 0.6 - 0.9 cm IVS Systolic Thickness 1.3 cm LVPW Diastolic Thickness 1.1 cm 0.6 - 1.0 / 0.6 - 0.9 cm LVPW Systolic Thickness 1.4 cm LVOT Diameter 2.1 cm LV Ejection Fraction 2D Teich 45.5 % LV Ejection Fraction MOD 2C 63.7 % LV Ejection Fraction 2C AL 64.8 % LA Diameter 3.5 cm LA Width 3.6 cm LA Height 6.1 cm RA Width 3.8 cm RA Height 5.9 cm DOPPLER AV Peak Velocity 194.0 cm/s LVOT Peak Velocity 128.0 cm/s AV Area Cont Eq vti 2.0 cm squared AV Area Cont Eq pk 2.3 cm squared MV Area PHT 4.2 cm squared Mitral E to A Ratio 0.7 MV E' Velocity 46.0 cm/s Mitral E to MV E' Ratio 8.3 Mitral E to LV E' Lateral Ratio 7.7 Mitral E to LV E' Septal Ratio 9.0 TR Peak Velocity 267.7 cm/s TR Peak Gradient 28.7 mmHg TV Peak E Velocity 73.0 cm/s Right Atrial Pressure 3.0 mmHg Pulmonary Artery Systolic Pressu 31.7 mmHg FINDINGS Left Ventricle Normal left ventricular size, systolic function and wall thickness, with no regional wall motion abnormalities. Left ventricular ejection fraction is estimated at 65-70 %. Grade I diastolic dysfunction (abnormal relaxation filling pattern), normal to mildly elevated filling pressures. Right Ventricle Normal right ventricular size and systolic function. Right ventricular systolic pressure 48 mmHg. Right Atrium Normal right atrial size. Left Atrium Mildly increased left atrial size. Mitral Valve Thickened mitral valve. No mitral valve stenosis. Trace mitral valve regurgitation. Aortic Valve Aortic valve not well visualized. No aortic valve stenosis. Mild to moderate aortic valve regurgitation. Tricuspid Valve Tricuspid valve not well visualized. Pulmonic Valve Pulmonic valve not well visualized. Pericardium No pericardial effusion. Aorta Normal-sized aortic root. CONCLUSIONS 1. This is a technically difficult study. 2. Normal left ventricular size, systolic function and wall thickness, with no regional wall motion abnormalities. Left ventricular ejection fraction is estimated at 65-70 %. Grade I diastolic dysfunction (abnormal relaxation filling pattern), normal to mildly elevated filling pressures. 3. Normal right ventricular size and systolic function. 3. Mild to moderate aortic valve regurgitation. 4. Pulmonary artery pressure estimated at 48 mmHg. 5. No prior similar studies to compare. Ruthie Brizuela MD (Electronically Signed) Final Date: 10 June 2021 14:42 S
[2021-06-10] MEDS: enoxaparin 40 mg/0.4 mL Syringe SUBCUT (05:58)
[2021-06-10] MEDS: dexamethasone 10 mg/mL INJ 6 MG IVP (05:58)
[2021-06-10] MEDS: pantoprazole DR 40 mg Tablet PO (08:56)
[2021-06-10] MEDS: aspirin 81 mg EC Tablet PO (08:56)
[2021-06-10] MEDS: oxybutynin chloride XL 5 MG TABLET PO (08:56)
[2021-06-10] MEDS: lanolin oint 7 gm 1 APPLIC TOPICAL (08:56)
[2021-06-10] MEDS: metoprolol tartrate 50 mg Tablet PO (08:56)
[2021-06-10] MEDS: lidocaine 1% 5 ML in potassium chloride premix 100 ML 50 ML IV (10:54)
[2021-06-10] MEDS: sodium chloride 0.9% 1,000 ML 75 ML IV (11:04)
--- NOTE | 2021-06-10 11:18 | P.PN_ITS ---
Subjective Subjective: Interval history: Patient was seen and examined this morning: Complaining of generalized weakness. Patient has been symptomatic for the last 1 week, she has not been eating and drinking well since then, has nagging nonproductive cough, has experienced usual Covid-like symptoms (loss of taste, worsening fatigue, worsening cough) Medications: Reviewed: Yes Vitals/I&O/Wt Last Vital Signs Temp 98.7 F 06/10/21 08:00 Pulse 80 06/10/21 08:00 Resp 16 06/10/21 08:00 BP 133/79 06/10/21 08:00 Pulse Ox 92 06/10/21 08:00 06/09/21 06/10/21 06/10/21 22:59 06:59 14:59 Intake Total 110 / 110 470 / 580 120 / 120 Output Total 220 / 220 Balance 110 / 110 250 / 360 120 / 120 Weight last 48 hrs Weight 64.41 kg Weight 62.596 kg Physical Exam Const: COMMON NORMALS: patient oriented x3 HENMT: COMMON NORMALS: normocephalic and atraumatic HEAD & SCALP: normocephalic and atraumatic Resp: COMMON NORMALS: clear to auscultation bilaterally AUSCULTATION: clear to auscultation bilaterally Cardio: COMMON NORMALS: regular rate, regular rhythm, S1 normal heart sound present, S2 normal heart sound present, No gallops present (Cardio), No murmurs present (Cardio), No rub (Cardio) and Peripheral pulses 2+ throughout RATE: regular rate RHYTHM: regular rhythm HEART SOUNDS: S1 normal heart sound present and S2 normal heart sound present PERIPHERAL PULSES: Peripheral pulses 2+ throughout GI: COMMON NORMALS: Normal to inspection, nondistended, normoactive bowel sounds present, Soft to palpation, non-tender, No hepatosplenomegaly present and no masses AUSCULTATION: Yes normoactive bowel sounds PALPATION: Yes Soft to palpation and Yes No hepatosplenomegaly present RECTAL EXAM: deferred Extremity: COMMON NORMALS: no clubbing, cyanosis or edema and no pedal edema Neuro: COMMON NORMALS: patient oriented x3 Data : 06/10/21 10:15 06/10/21 10:15 Micro: Microbiology 06/09/21 20:50 Blood Culture - Preliminary Blood SPECIMEN COLLECTED 06/09/21 20:50 Blood Culture - Preliminary Blood SPECIMEN COLLECTED A&P Assessment and plan (1) COVID-19: S/p COVID-19 antibody infusion. Currently on Covid protocol: CTA chest: Negative for PE: Bilateral, predominantly peripheral, patches of ground-glass interstitial lung disease opacification consistent with active interstitial pneumonitis. 2D echo: Normal LV size, no RWMA , LVEF 65 to 70%, normal RV size and systolic function, mild to moderate AR, pulmonary artery pressure 48 mmHg. ESR: CRP: 34 Ferritin: 1551 D-dimer:4.86 Procalcitonin 0.16 Serum lactate:nl Blood culture: Dexamethasone 6 mg IV daily Duoneb Supplemental 02 as needed No indication for remdesivir for now Empirically on ceftriaxone azithromycin Mucinex 600 mg p.o. twice daily Lovenox 40 subcu daily for DVT prophylaxis Status: Acute (2) Hyponatremia: Hypovolemic hyponatremia: Continue gentle IV hydration NS at 75 cc an hour Monitor BMP TSH Urine electrolytes Random cortisol Status: Acute (3) Transaminitis: Denies any abdominal. Likely secondary to dehydration. Monitor CMP Status: Acute (4) Pneumonia due to COVID-19 virus: Status: Acute (5) Syncope and collapse: Status: Acute (6) Hypokalemia: Status: Acute (7) DVT prophylaxis: Status: Acute (8) Transaminitis: Status: Acute Additional A&P Information Syncopal event Likely due to hypoxia Will obtain echo Replace electrolytes Monitor on tele Fall precautions Check orthostatic Neuro-checks COVID-19 Pneumonia Decadron 6 mg IV daily Will hold off on remdesivir Empirically cover for superimposed bacterial Ceftriaxone / Azithromycin Duoneb Supplemental 02 as needed On RA currently Inflammatory labs in am Droplet precautions Hyponatremia / Hypokalemia Due to above Replaced in ER Repeat K in am On tele Elevated LFTs AST 279 ALT 252 Due to covid-19 Trend LFTs Consider US if worsening DVT ppx Lovenox 40 mg SQ daily Attestations Medical Necessity Statement*: Patient is doing hospital for management of COVID-19. Coding Level of Care Code Acute Technical Service Specialist for g Fwd Exam Detailed Diagnoses COVID-19 U07.1 Hyponatremia E87.1 Transaminitis R74.01 Pneumonia due to COVID-19 virus U07.1; J12.82 Syncope and collapse R55 Hypokalemia E87.6 DVT prophylaxis Z29.9 Transaminitis R74.01
[2021-06-10 11:21] LABS: Hematocrit 34.9 % (37.0-47.0); Lymphocytes # 0.2 10^3/uL (0.8-4.8); Mean Corpuscular HGB Conc 34.4 g/dL (30.0-36.0); Mean Corpuscular Hemoglobin 28.6 pg (28.0-34.0); Mean Corpuscular Volume 83.3 fl (81-99); Mean Platelet Volume 10.5 fL (7.4-10.4); Monocytes # 0.2 10^3/uL (0.2-0.9); Monocytes % 3.2 %; Neutrophils # 5.82 10^3/uL (1.8-7.7); Neutrophils % 92.8 %; Nucleated Red Blood Cells % 0 %; Platelet Count 129 10^3/cmm (130-400); Red Blood Count 4.19 10^6/uL (4.1-5.3); Red Cell Distribution Width 13.2 % (12.1-15.1); White Blood Count 6.3 10^3/uL (4.0-10.0)
[2021-06-10 11:40] LABS: D Dimer 4.86 ug/mIFEU (0-0.59)
[2021-06-10 11:44] LABS: Alanine Aminotransferase 189 U/L (0-33); Albumin Level 3.3 g/dL (3.5-5.2); Alkaline Phosphatase 59 IU/L (35-105); Anion Gap 11.5 (5-19); Aspartate Amino Transferase 170 U/L (0-32); Blood Urea Nitrogen 13 mg/dL (8-23); C Reactive Protein 34.8 mg/L (0.0-4.9); Calcium 8.4 mg/dL (8.5-10.5); Carbon Dioxide 30 mmol/L (22-29); Chloride 88 mmol/L (98-107); Globulin 3.9 g/dL (1.3-4.6); Glucose 133 mg/dL (65-115); Osmolality Calculated 264 mOsm/kg (285-295); Potassium 3.5 mmol/L (3.5-5.1); Sodium 126 mmol/L (136-145); Total Bilirubin 0.4 mg/dL (0.15-1.2); Total Protein 7.2 g/dL (6.6-8.7)
[2021-06-10 11:50] LABS: Procalcitonin 0.16 ng/mL (0-0.5)
[2021-06-10 12:16] LABS: Ferritin 1551 ng/mL (15-150)
[2021-06-10] MEDS: guaiFENesin 600 mg Tablet PO (17:49)
[2021-06-10] MEDS: cefTRIAXone 2,000 MG in sodium chloride 0.9% (plus) 50 ML 100 MG IV (18:23)
[2021-06-11] VITALS (11 sets, daily range): BP systolic 116–151; BP diastolic 62–81; PULSE 61–82; RESP 16–20; TEMP 36.5–36.9; O2SAT 90–96
[2021-06-11] MEDS: azithromycin 500 MG in sodium chloride 0.9% 250 ML 250 MG IV (00:31)
[2021-06-11] MEDS: sodium chloride 0.9% 1,000 ML 75 ML IV ×2 (04:05→18:10)
[2021-06-11] MEDS: enoxaparin 40 mg/0.4 mL Syringe SUBCUT (04:05)
[2021-06-11] MEDS: dexamethasone 10 mg/mL INJ 6 MG IVP (04:06)
[2021-06-11] MEDS: acetaminophen 325 mg Tablet 650 MG PO (04:09)
[2021-06-11 06:03] LABS: Hematocrit 31.5 % (37.0-47.0); Hemoglobin 10.8 g/dL (11.5-15.3); Lymphocytes # 0.3 10^3/uL (0.8-4.8); Lymphocytes % 8.2 %; Mean Corpuscular HGB Conc 34.3 g/dL (30.0-36.0); Mean Corpuscular Hemoglobin 28.6 pg (28.0-34.0); Mean Corpuscular Volume 83.6 fl (81-99); Monocytes # 0.3 10^3/uL (0.2-0.9); Monocytes % 6.7 %; Neutrophils % 84.6 %; Nucleated Red Blood Cells % 0 %; Platelet Count 115 10^3/cmm (130-400); Red Blood Count 3.77 10^6/uL (4.1-5.3); Red Cell Distribution Width 13.2 % (12.1-15.1); White Blood Count 3.9 10^3/uL (4.0-10.0)
[2021-06-11 06:33] LABS: Alanine Aminotransferase 126 U/L (0-33); Albumin Level 2.9 g/dL (3.5-5.2); Alkaline Phosphatase 50 IU/L (35-105); Anion Gap 12.6 (5-19); Aspartate Amino Transferase 102 U/L (0-32); Blood Urea Nitrogen 14 mg/dL (8-23); Calcium 7.9 mg/dL (8.5-10.5); Carbon Dioxide 25 mmol/L (22-29); Chloride 92 mmol/L (98-107); Globulin 3.6 g/dL (1.3-4.6); Glucose 112 mg/dL (65-115); Osmolality Calculated 263 mOsm/kg (285-295); Potassium 3.6 mmol/L (3.5-5.1); Slide Review Slide Review Perform; Sodium 126 mmol/L (136-145); Total Bilirubin 0.3 mg/dL (0.15-1.2); Total Protein 6.5 g/dL (6.6-8.7)
[2021-06-11] MEDS: aspirin 81 mg EC Tablet PO (08:33)
[2021-06-11] MEDS: metoprolol tartrate 50 mg Tablet PO (08:33)
[2021-06-11] MEDS: oxybutynin chloride XL 5 MG TABLET PO (08:34)
[2021-06-11] MEDS: guaiFENesin 600 mg Tablet PO ×2 (08:34→18:10)
[2021-06-11] MEDS: pantoprazole DR 40 mg Tablet PO (08:34)
[2021-06-11 13:19] LABS: Procalcitonin 0.14 ng/mL (0-0.5); Thyroid Stimulating Hormone 0.74 uIU/mL (0.27-4.20)
[2021-06-11 13:30] LABS: Iron 36 ug/dL (37-145); Total Iron Binding Capacity 150 mcg/dl; Unsaturated Iron Binding 114 ug/dL (112-347)
[2021-06-11] MEDS: cefTRIAXone 1,000 MG in sodium chloride 0.9% (plus) 50 ML 100 MG IV (14:30)
[2021-06-11] MEDS: sodium chloride 1 gm Tablet PO ×2 (14:30→18:10)
--- NOTE | 2021-06-11 17:26 | PM.PN ---
Subjective Subjective: Interval history: Hospital course, labs appreciated. Examination patient sitting up in chair. Denies any nausea vomiting, headache. States she is feeling better. Has remained on room air. Hemodynamically stable. Afebrile. Medications: Reviewed: Yes Vitals/I&O/Wt Last Vital Signs Temp 97.8 F 06/11/21 15:44 Pulse 64 06/11/21 15:44 Resp 16 06/11/21 15:44 BP 128/65 06/11/21 15:44 Pulse Ox 93 06/11/21 15:44 06/11/21 06/11/21 06/11/21 06:59 14:59 22:59 Intake Total 1350 / 2485 360 / 360 450 / 810 Output Total 260 / 260 Balance 1090 / 2225 360 / 360 450 / 810 Weight last 48 hrs Weight 64.41 kg Physical Exam Narrative: EXAM NARRATIVE: General: No acute distress, AO x3 HEENT: PERRLA, pupils bilaterally equal and reactive Chest: Normal vesicular breath sounds, no added sounds, equal good air entry bilaterally CVS: S1-S2 regular, no murmurs, no tachycardia, no gallops, no rubs Abdomen: Soft, nontender, no organomegaly, bowel sounds present Neuro: No focal deficits, no facial deformity, AO x3, power 5/5 in all limbs Data : 06/11/21 05:52 06/11/21 05:52 Micro: Microbiology 06/09/21 20:50 Blood Culture - Preliminary Blood NEGATIVE TO DATE 06/09/21 20:50 Blood Culture - Preliminary Blood NEGATIVE TO DATE A&P Assessment and plan (1) COVID-19: Mild disease. Post monoclonal antibody infusion. Has continued to remain on room air. Continue with Decadron 6 mg IV daily. Will finish 10-day course. DuoNebs as needed. Vitamin C, zinc. Incentive spirometry. Tessalon Perles. We will monitor inflammatory markers. CTA chest: Negative for PE: Bilateral, predominantly peripheral, patches of ground-glass interstitial lung disease opacification consistent with active interstitial pneumonitis. 2D echo: Normal LV size, no RWMA , LVEF 65 to 70%, normal RV size and systolic function, mild to moderate AR, pulmonary artery pressure 48 mmHg. Status: Acute (2) Hyponatremia: Hypovolemic hyponatremia: Continue with gentle IV hydration 75 cc/h. Start salt tablets twice daily. Monitor BMP daily. TSH, random cortisol levels appreciated. Check HbA1c, lipid panel. Status: Acute (3) Transaminitis: Denies any abdominal. Likely secondary to dehydration. Monitor CMP Status: Acute (4) Syncope and collapse: Most likely secondary dehydration, hyponatremia Status: Acute (5) Hypokalemia: Status: Acute Additional A&P Information Regular diet. Protonix for PUD prophylaxis. DVT ppx Lovenox 40 mg SQ daily Appreciate physical therapy recommendations. Attestations Medical Necessity Statement*: Requires further hospitalization for management of hyponatremia, COVID-19 Time Spent in Patient Care: Greater than 35 minutes (>than 50% of time spent in counselling and/or direct pt care on unit). Coding Level of Care Code Acute Dog Food Dough Mixer for [facility] Fwd Diagnoses COVID-19 U07.1 Hyponatremia E87.1 Transaminitis R74.01 Syncope and collapse R55 Hypokalemia E87.6
[2021-06-11] MEDS: ascorbic acid 500 mg Tablet PO (18:10)
[2021-06-11 19:21] LABS: Iron 38 ug/dL (37-145); Percent Saturation 24.8 % (20-50); Total Iron Binding Capacity 153 mcg/dl; Unsaturated Iron Binding 115 ug/dL (112-347)
[2021-06-11] MEDS: benzonatate 100 mg Capsule PO (20:54)
[2021-06-12] VITALS (7 sets, daily range): BP systolic 118–154; BP diastolic 65–77; PULSE 65–81; RESP 17–20; TEMP 36.6–37; O2SAT 89–93
[2021-06-12] MEDS: enoxaparin 40 mg/0.4 mL Syringe SUBCUT (05:29)
[2021-06-12] MEDS: dexamethasone 10 mg/mL INJ 6 MG IVP (05:30)
[2021-06-12 05:32] LABS: Hematocrit 31.2 % (37.0-47.0); Hemoglobin 10.6 g/dL (11.5-15.3); Lymphocytes # 0.4 10^3/uL (0.8-4.8); Lymphocytes % 10.7 %; Mean Corpuscular Volume 85.2 fl (81-99); Monocytes # 0.3 10^3/uL (0.2-0.9); Monocytes % 7.4 %; Neutrophils # 3.19 10^3/uL (1.8-7.7); Neutrophils % 81.4 %; Nucleated Red Blood Cells % 0 %; Platelet Count 131 10^3/cmm (130-400); Red Blood Count 3.66 10^6/uL (4.1-5.3); Red Cell Distribution Width 13.4 % (12.1-15.1); White Blood Count 3.9 10^3/uL (4.0-10.0)
[2021-06-12 05:53] LABS: C Reactive Protein 7.9 mg/L (0.0-4.9); Chol HDL Ratio 2.66 mg/dL (0.0-4.40); Cholesterol 101 mg/dL (0-200); HDL Cholesterol 38 mg/dL (60-100); LDL Cholesterol Calculated 45 mg/dL (50-129); Triglycerides 90 mg/dL (0-150); VLDL Cholestrol Calculation 18 mg/dL (0-30)
[2021-06-12 05:58] LABS: D Dimer 2.55 ug/mIFEU (0-0.59)
[2021-06-12 06:02] LABS: Alanine Aminotransferase 108 U/L (0-33); Albumin Level 2.7 g/dL (3.5-5.2); Alkaline Phosphatase 52 IU/L (35-105); Anion Gap 10.5 (5-19); Aspartate Amino Transferase 86 U/L (0-32); Blood Urea Nitrogen 13 mg/dL (8-23); Calcium 7.8 mg/dL (8.5-10.5); Carbon Dioxide 26 mmol/L (22-29); Chloride 95 mmol/L (98-107); Globulin 3.4 g/dL (1.3-4.6); Glucose 113 mg/dL (65-115); Osmolality Calculated 267 mOsm/kg (285-295); Potassium 3.5 mmol/L (3.5-5.1); Sodium 128 mmol/L (136-145); Total Bilirubin 0.3 mg/dL (0.15-1.2); Total Protein 6.1 g/dL (6.6-8.7)
[2021-06-12 06:13] LABS: Ferritin 1182 ng/mL (15-150)
[2021-06-12 06:21] LABS: Slide Review Slide Review Perform
[2021-06-12 06:34] LABS: Estmated Average Glucose 123; Hemoglobin A1C 5.9 % (4.0-6.0)
[2021-06-12] MEDS: guaiFENesin 600 mg Tablet PO (09:33)
[2021-06-12] MEDS: ascorbic acid 500 mg Tablet PO (09:33)
[2021-06-12] MEDS: aspirin 81 mg EC Tablet PO (09:33)
[2021-06-12] MEDS: benzonatate 100 mg Capsule PO (09:33)
[2021-06-12] MEDS: pantoprazole DR 40 mg Tablet PO (09:33)
[2021-06-12] MEDS: azithromycin 250 mg Tablet 500 MG PO (09:33)
[2021-06-12] MEDS: oxybutynin chloride XL 5 MG TABLET PO (09:33)
[2021-06-12] MEDS: zinc gluconate 50 mg Tablet PO (09:33)
[2021-06-12] MEDS: metoprolol tartrate 25 mg Tablet PO (09:36)
[2021-06-12] MEDS: sodium chloride 1 gm Tablet PO (09:58)
--- NOTE | 2021-06-12 10:50 | PC.SOCIAL ---
IMM Update Pg.2 of IMM updated with patient over the phone. Verbalized understanding.
--- NOTE | 2021-06-12 11:51 | P.DS_ITS ---
Discharge Providers Date of Admission: 06/09/21 22:24 Date of Discharge: June 12, 2021 Attending Provider at Admission: Grzegorz Hackett Attending Provider at Discharge: Raman Dozier MD Primary Care Provider: Abeba Han MD Diagnoses at Discharge Discharge Diagnosis (1) COVID-19: Status: Acute (2) Hyponatremia: Status: Acute (3) Transaminitis: Status: Acute (4) Syncope and collapse: Status: Acute (5) Hypokalemia: Status: Acute Reason for Visit Reason for Visit: Covid+, referred by Dr melquiades diaz infusion Hospital Course Hospital Course 80-year-old female past medical history of cystocele stage III, hypertension who presented to the hospital with symptoms of COVID-19 on June 09. She was found to be COVID-19 positive with rapid antigen. Because she was not requiring oxygen she received monoclonal antibody infusion. After completion of infusion at time of discharge patient had an episode of presyncope on standing up. Her oxygen saturation was found to be in high 80s during that time. Blood work was done which showed hyponatremia with sodium down to 123 and potassium down to 2.9 with transaminitis. Patient was admitted for further evaluation and work-up of presyncope along with treatment for hyponatremia. Hyponatremia is most likely secondary to dehydration from poor oral intake and home medication of hydrochlorothiazide. CTA was done which ruled out pulmonary embolism. Patient after admission did not require any oxygen supplementation so remdesivir was held. She was started on treatment with IV hydration for hypovolemic hyponatremia and IV steroids for mild COVID-19 pneumonia Her sodium levels gradually improved after adding oral salt tablets. During hospitalization she remained hemodynamically stable and afebrile. Her oxygen saturations mostly on ambulation and rest were more than 90% with some numbers going down to 88%. Safe discharge planning were discussed in detail with options of going home with close monitoring versus staying in hospital for short course of remdesivir as patient had few oxygen saturation numbers below 90. Patient verbalized understanding and requested to be discharged. She is being discharged in hemodynamically stable condition with advised to take Advair and Spiriva which is inhalation treatment for next 14 days, salt tablets twice daily for next 7 days, check oxygen saturation twice or thrice a day and to present back to the ER if saturation drops persistently below 88%. Hydrochlorothiazide has been stopped because of hyponatremia. Dose of been increased to 5 mg daily. She is advised to follow-up with her primary care provider within next 3 days for repeat BMP. Physical Exam Narrative: EXAM NARRATIVE: General: No acute distress, AO x3 HEENT: PERRLA, pupils bilaterally equal and reactive Chest: Normal vesicular breath sounds, no added sounds, equal good air entry bilaterally CVS: S1-S2 regular, no murmurs, no tachycardia, no gallops, no rubs Abdomen: Soft, nontender, no organomegaly, bowel sounds present Neuro: No focal deficits, no facial deformity, AO x3, power 5/5 in all limbs Discharge Data Data Completed and Pending: Completed Studies During Hospitalization Category Date Time Status CT angio chest PE protcl [id number] Urge nt Cat Scan 06/09/21 17:08 Completed XR chest 1V tamara ble [id number] Stat Exams 06/09/21 16:05 Completed CV. echo complete * [id number] Routine Ultrasound 06/10/21 04:42 Completed Pending at discharge Category Date Time Status Blood Culture Sta t Lab 06/09/21 20:50 Results C Reactive Protei n Q48H Lab 06/14/21 04:00 Ordered Complete Blood Co unt w/Auto AM LABS Lab 06/13/21 04:00 Ordered Comprehensive Met abolic Panel AM LA BS Lab 06/13/21 04:00 Ordered D Dimer Q48H Lab 06/14/21 04:00 Ordered Ferritin AM LABS Lab 06/13/21 04:00 Ordered Ferritin AM LABS Lab 06/14/21 04:00 Ordered Urinalysis and Mi croscopic Routine Lab 06/11/21 12:39 Uncollected Urine Random Lyte s Routine Lab 06/11/21 12:39 Uncollected Labs from last 24 hours 06/12/21 06/12/21 06/12/21 05:19 05:19 05:19 WBC 3.9 L RBC 3.66 L Hgb 10.6 L Hct 31.2 L MCV 85.2 MCH 29.0 MCHC 34.0 RDW 13.4 Plt Count 131 MPV 10.0 Neut % (Auto) 81.4 Lymph % (Auto) 10.7 [place] % (Auto) 7.4 Eos % (Auto) 0.0 Baso % (Auto) 0.0 Neut # (Auto) 3.19 Lymph # (Auto) 0.4 L [place] # (Auto) 0.3 Eos # (Auto) 0.0 Baso # (Auto) 0.0 Nucleated RBC % (a uto) 0 Nucleated RBCs # 0.0 D-Dimer 2.55 H Sodium 128 L Potassium 3.5 Chloride 95 L Carbon Dioxide 26 Anion Gap 10.5 BUN 13 Creatinine 0.4 L GFR Calculation Not Reportable Glucose 113 Estimat Average Gl ucose Hemoglobin A1c Calculated Osmolal ity 267 L Calcium 7.8 L Iron TIBC % Saturation Unsat Iron Binding Ferritin Total Bilirubin 0.3 AST 86 H ALT 108 H Alkaline Phosphata se 52 C-Reactive Protein Total Protein 6.1 L Albumin 2.7 L Globulin 3.4 Triglycerides Cholesterol LDL Cholesterol, C alc Total VLDL Cholest jeannie HDL Cholesterol Cholesterol/HDL Ra cheo Procalcitonin TSH 06/12/21 06/12/21 06/11/21 05:19 05:19 05:52 WBC RBC Hgb Hct MCV MCH MCHC RDW Plt Count MPV Neut % (Auto) Lymph % (Auto) [place] % (Auto) Eos % (Auto) Baso % (Auto) Neut # (Auto) Lymph # (Auto) [place] # (Auto) Eos # (Auto) Baso # (Auto) Nucleated RBC % (a uto) Nucleated RBCs # D-Dimer Sodium Potassium Chloride Carbon Dioxide Anion Gap BUN Creatinine GFR Calculation Glucose Estimat Average Gl ucose 123 Hemoglobin A1c 5.9 Calculated Osmolal ity Calcium Iron 38 TIBC 153 % Saturation 24.8 Unsat Iron Binding 115 Ferritin 1182 H Total Bilirubin AST ALT Alkaline Phosphata se C-Reactive Protein 7.9 H Total Protein Albumin Globulin Triglycerides 90 Cholesterol 101 LDL Cholesterol, C alc 45 L Total VLDL Cholest jeannie 18 HDL Cholesterol 38 L Cholesterol/HDL Ra cheo 2.66 Procalcitonin TSH 06/11/21 06/11/21 05:52 05:52 WBC RBC Hgb Hct MCV MCH MCHC RDW Plt Count MPV Neut % (Auto) Lymph % (Auto) [place] % (Auto) Eos % (Auto) Baso % (Auto) Neut # (Auto) Lymph # (Auto) [place] # (Auto) Eos # (Auto) Baso # (Auto) Nucleated RBC % (a uto) Nucleated RBCs # D-Dimer Sodium Potassium Chloride Carbon Dioxide Anion Gap BUN Creatinine GFR Calculation Glucose Estimat Average Gl ucose Hemoglobin A1c Calculated Osmolal ity Calcium Iron 36 L TIBC 150 % Saturation 24.0 Unsat Iron Binding 114 Ferritin Total Bilirubin AST ALT Alkaline Phosphata se C-Reactive Protein Total Protein Albumin Globulin Triglycerides Cholesterol LDL Cholesterol, C alc Total VLDL Cholest jeannie HDL Cholesterol Cholesterol/HDL Ra cheo Procalcitonin 0.14 TSH Cancelled 0.74 Addt'l Data from Hospital Stay: Laboratory Results WBC 3.9 10^3/uL (4.0- 10.0) L 06/12/21 05:19 RBC 3.66 10^6/uL (4.1 -5.3) L 06/12/21 05:19 Hgb 10.6 g/dL (11.5-1 5.3) L 06/12/21 05:19 Hct 31.2 % (37.0-47.0 ) L 06/12/21 05:19 MCV 85.2 fl (81-99) 06/12/21 05:19 MCH 29.0 pg (28.0-34. 0) 06/12/21 05:19 MCHC 34.0 g/dL (30.0-3 6.0) 06/12/21 05:19 RDW 13.4 % (12.1-15.1 ) 06/12/21 05:19 Plt Count 131 10^3/cmm (130 -400) 06/12/21 05:19 MPV 10.0 fL (7.4-10.4 ) 06/12/21 05:19 Neut % (Auto) 81.4 % 06/12/21 05:19 Lymph % (Auto) 10.7 % 06/12/21 05:19 [place] % (Auto) 7.4 % 06/12/21 05:19 Eos % (Auto) 0.0 % 06/12/21 05:19 Baso % (Auto) 0.0 % 06/12/21 05:19 Neut # (Auto) 3.19 10^3/uL (1.8 -7.7) 06/12/21 05:19 Lymph # (Auto) 0.4 10^3/uL (0.8- 4.8) L 06/12/21 05:19 [place] # (Auto) 0.3 10^3/uL (0.2- 0.9) 06/12/21 05:19 Eos # (Auto) 0.0 10^3/uL (0.0- 0.8) 06/12/21 05:19 Baso # (Auto) 0.0 10^3/uL (0.0- 0.1) 06/12/21 05:19 Nucleated RBC % (a uto) 0 % 06/12/21 05:19 Nucleated RBCs # 0.0 /100WBC 06/12/21 05:19 D-Dimer 2.55 ug/mIFEU (0- 0.59) H 06/12/21 05:19 Sodium 128 mmol/L (136-1 45) L 06/12/21 05:19 Potassium 3.5 mmol/L (3.5-5 .1) 06/12/21 05:19 Chloride 95 mmol/L (98-107 ) L 06/12/21 05:19 Carbon Dioxide 26 mmol/L (22-29) 06/12/21 05:19 Anion Gap 10.5 (5-19) 06/12/21 05:19 BUN 13 mg/dL (8-23) 06/12/21 05:19 Creatinine 0.4 mg/dL (0.5-0. 9) L 06/12/21 05:19 GFR Calculation Not Reportable 06/12/21 05:19 Glucose 113 mg/dL (65-115 ) 06/12/21 05:19 Estimat Average Gl ucose 123 06/12/21 05:19 Hemoglobin A1c 5.9 % (4.0-6.0) 06/12/21 05:19 Calculated Osmolal ity 267 mOsm/kg (285- 295) L 06/12/21 05:19 Lactate 1.3 mmol/L (0.5-2 .2) 06/09/21 20:50 Calcium 7.8 mg/dL (8.5-10 .5) L 06/12/21 05:19 Iron 36 ug/dL (37-145) L 06/11/21 05:52 Iron 38 ug/dL (37-145) 06/11/21 05:52 TIBC 150 mcg/dl 06/11/21 05:52 TIBC 153 mcg/dl 06/11/21 05:52 % Saturation 24.0 % (20-50) 06/11/21 05:52 % Saturation 24.8 % (20-50) 06/11/21 05:52 Unsat Iron Binding 114 ug/dL (112-34 7) 06/11/21 05:52 Unsat Iron Binding 115 ug/dL (112-34 7) 06/11/21 05:52 Ferritin 1182 ng/mL (15-15 0) H 06/12/21 05:19 Total Bilirubin 0.3 mg/dL (0.15-1 .2) 06/12/21 05:19 AST 86 U/L (0-32) H 06/12/21 05:19 ALT 108 U/L (0-33) H 06/12/21 05:19 Alkaline Phosphata se 52 IU/L (35-105) 06/12/21 05:19 Troponin T Gen 5 n g/L 18 ng/L (0-10) H 06/09/21 16:15 C-Reactive Protein 7.9 mg/L (0.0-4.9 ) H 06/12/21 05:19 NT-Pro-B Natriuret Pep 647 pg/mL (0-450) H 06/09/21 16:15 Total Protein 6.1 g/dL (6.6-8.7 ) L 06/12/21 05:19 Albumin 2.7 g/dL (3.5-5.2 ) L 06/12/21 05:19 Globulin 3.4 g/dL (1.3-4.6 ) 06/12/21 05:19 Triglycerides 90 mg/dL (0-150) 06/12/21 05:19 Cholesterol 101 mg/dL (0-200) 06/12/21 05:19 LDL Cholesterol, C alc 45 mg/dL (50-129) L 06/12/21 05:19 Total VLDL Cholest jeannie 18 mg/dL (0-30) 06/12/21 05:19 HDL Cholesterol 38 mg/dL (60-100) L 06/12/21 05:19 Cholesterol/HDL Ra cheo 2.66 mg/dL (0.0-4 .40) 06/12/21 05:19 Procalcitonin 0.14 ng/mL (0-0.5 ) 06/11/21 05:52 TSH 0.74 uIU/mL (0.27 -4.20) 06/11/21 05:52 TSH Cancelled 06/11/21 05:52 Impressions Chest X-Ray 06/09/21 16:05 IMPRESSION: Right lower lobe pneumonitis/pneumonia. Radiation Dose CTDIVOL = (mGy): DLP = (mGy-cm) Chest CTA 06/09/21 17:08 IMPRESSION: 1. No visible evidence of pulmonary embolism/pulmonary arterial thrombus. 2. Bilateral, predominantly peripheral, patches of ground-glass interstitial diana g disease opacification consistent with active interstitial pneumonitis. Overall constellation of findings would be consistent with Covid-19 pneumonitis. 3. Incidental note of a small exophytic structure off the superior pole of the left kidney without simple cystic characteristics measuring 12 mm. Would recommend follow-up nonurgent/nonemergent ultrasound to assess cyst versus solid. 4. Other nonurgent, nonemergent, chronic, and age related findings as detailed in text above. COMMENTS: 1. Consistent with the [employer]'s Incidental Findings Committee white paper (J Am Abhishek Radiol 2015): In patients aged 35 years and older with an incidental thyroid nodule equal to or greater than 1.[address], MRI or extrathyroidal US, further evaluation with dedicated thyroid US is recommended for patients with normal life expectancy and without comorbidities. For smaller nodules without suspicious features, no further evaluation or follow up is recommended. 2. Consistent with the [employer]'s Incidental Findings Committee white paper (J Am Abhishek Radiol 2018): Any incidental renal lesion less than 1 cm or classified as too small to characterize, or any incidental cystic renal lesion characterized as simple-appearing, is likely benign. No follow-up imaging is recommended for these lesions per consensus recommendations based on imaging criteria. Radiation Dose CTDIVOL = (mGy): DLP = 453.32 (mGy-cm) Microbiology 06/09/21 20:50 Blood Blood Culture - Preliminary NEGATIVE TO DATE 06/09/21 20:50 Blood Blood Culture - Preliminary NEGATIVE TO DATE Vitals: Last Vital Signs Temp 97.8 F 06/12/21 11:29 Pulse 65 06/12/21 11:29 Resp 17 06/12/21 11:29 BP 152/73 06/12/21 11:29 Pulse Ox 89 L 06/12/21 11:29 Discharge Plan Discharge Patient Disposition: Home Condition: Stable Prescriptions: New Vitamin C 500 mg Tablet 500 mg PO BID 30 Days Qty: 60 RF: 0 benzonatate 100 mg Capsule 100 mg PO TID PRN (Reason: cough) Qty: 14 RF: 0 Advair Diskus 250-50 mcg/dose Blister With Device 1 puff inhalation BID.RESPIRATORY 30 Days Qty: 60 RF: 0 sodium chloride 1 gram Tablet 1 g PO BID 7 Days Qty: 14 RF: 0 pantoprazole 40 mg Tablet,Delayed Release (Dr/Ec) 40 mg PO DAILY 14 Days Qty: 14 RF: 0 zinc gluconate 50 mg Tablet 50 mg PO DAILY Qty: 14 RF: 0 dexamethasone 6 mg tablet 6 mg PO DAILY Qty: 7 RF: 0 Spiriva with HandiHaler 18 mcg capsule, w/inhalation device 1 cap inhalation DAILY Qty: 30 RF: 0 amlodipine 5 mg tablet 5 mg PO DAILY Qty: 30 RF: 0 Toprol XL 50 mg tablet extended release 24 hr 50 mg PO DAILY Qty: 30 RF: 0 Continued oxybutynin chloride 5 mg tablet extended release 24hr 5 mg PO DAILY 30 Days Qty: 30 RF: 0 aspirin [Adult Low Dose Aspirin] 81 mg tablet,delayed release (DR/EC) 81 mg PO DAILY RF: 0 acetaminophen 325 mg capsule 325 mg PO Q4H PRN (Reason: fever or postoperative pain pain) Qty: 60 RF: 0 Held hydrochlorothiazide 25 mg tablet 25 mg PO DAILY Qty: 90 RF: 1 Hold Instructions: Resume on 06/19/21. Discontinued amlodipine 2.5 mg tablet 2.5 mg PO DAILY Qty: 90 RF: 1 metoprolol tartrate 50 mg tablet 50 mg PO DAILY Qty: 90 RF: 1 ibuprofen 800 mg tablet 800 mg PO TID PRN (Reason: pain) Qty: 60 RF: 0 Discharge Orders: Discharge Order (Routine); Ordered 06/12/21 Ordered By: Raman Dozier Referrals: Abeba Han MD [Primary Care Provider] - 1-3 days Discharge Diet: Regular Discharge Activity: Resume usual activity Patient Instructions: Viral Pneumonia (GEN), COVID-19 (Coronavirus Disease 2019) (ED), Opioid Safety, Pneumonia Stoplight Activity Restrictions/Additional Instructions: Advised to take inhalation treatment with Advair and Spiriva daily. Advised to continue working with incentive spirometry and flutter valve while at home. Advised to continue taking dexamethasone 6 mg for next 10 days. Advised to follow-up with his primary care provider 1-3 days. Can take his COVID-19 vaccination in 3 months. Advised to continue following social distancing and isolation protocol for next 10 days. Advised to come back to the ER if fever of more than 101 Fahrenheit, more difficulty breathing than usual or requiring higher oxygen supplementation. Please monitor your pulse oximetry/blood oxygen level at home 2-3 times a day. If oxygen level drops below 88% please come to the hospital for further treatment. Please follow-up with your primary care provider within next 3 days for repeat BMP. Please do not take hydrochlorothiazide for now. Dose of amlodipine has been increased to 5 mg daily. Metoprolol has been changed to metoprolol succinate 50 mg once daily. Discharge Attestations Time Spent in Discharge Care*: greater than 30 min Specific Discharge Activities: educating patient, discussing with pcp/other providers, discussing with piano case maker/social workers/dc planners, documenting/other paperwork and evaluating patient/reviewing data Status at Discharge: Cognitive status at discharge: cognitively intact , Behavioral status at discharge: cooperative , Functional status at discharge: uses cane/walker Overall status at discharge: patient is back to baseline Quality Metrics Clinical Quality Measures During this hospital stay, did patient experience: None Coding Level of Care Code Acute [facility] DC note Diagnoses COVID-19 U07.1 Hyponatremia E87.1 Transaminitis R74.01 Syncope and collapse R55 Hypokalemia E87.6
== END 2021-06-12 16:00 | disposition home or self-care (01) | DRG 177 ==
LOC: ER 17:33 → MEDSURG 22:33
PROVIDERS: Admitting Provider Hospitalist; Emergency Provider Emergency Medicine; PCP Family Medicine; Visit Provider Student in an Organized Health Care Education/Training Program
DX: U07.1 COVID-19 (principal); J12.82 Pneumonia due to coronavirus disease 2019; E87.1 Hypo-osmolality and hyponatremia; E87.6 Hypokalemia; M51.36 Other intervertebral disc degeneration, lumbar region; I10 Essential (primary) hypertension; N81.10 Cystocele, unspecified; R55 Syncope and collapse; E86.0 Dehydration; Z79.82 Long term (current) use of aspirin
CPT/HCPCS: 36415; 71045; 71275; 80053; 80061; 82728; 83036; 83540; 83550; 83605; 83880; 84145; 84443; 84484; 85025; 85378; 86140; 87040; 87426; 93005; 93306; 94664; 96365; 96366; 96367; 96372; 97110; 97116; 97161; 99285; J0456; J0696; J1100; J1650; J3480; J7030; J7050; Q0144; Q9967

== ENCOUNTER → 2021-11-06 09:50 | Outpatient (BNVA) | payer MEDICARE, OTHER, SELFPAY | PROVIDERS: PCP Family Medicine; Visit Provider Orthopaedic Surgery | DX: M51.36 Other intervertebral disc degeneration, lumbar region (principal); M47.896 Other spondylosis, lumbar region | CPT/HCPCS: 72110 ==

== ENCOUNTER 2021-11-13 06:00 | Outpatient (RCR) | payer MEDICARE, OTHER, SELFPAY | END 2021-11-22 23:59 | disposition home or self-care (01) | LOC: SPT 06:00 | PROVIDERS: PCP Family Medicine; Referring Provider Orthopaedic Surgery; Visit Provider Orthopaedic Surgery | DX: M54.50 Low back pain, unspecified (principal); M48.061 Spinal stenosis, lumbar region without neurogenic claudication | CPT/HCPCS: 97110; 97161 ==

== ENCOUNTER 2021-11-23 06:00 | Outpatient (RCR) | payer MEDICARE, OTHER, SELFPAY | END 2021-12-22 23:59 | disposition home or self-care (01) | LOC: SPT 06:00 | PROVIDERS: PCP Family Medicine; Referring Provider Orthopaedic Surgery; Visit Provider Orthopaedic Surgery | DX: M48.061 Spinal stenosis, lumbar region without neurogenic claudication (principal) | CPT/HCPCS: 97110 ==

== ENCOUNTER → 2021-12-18 07:50 | Outpatient (BNVA) | payer MEDICARE, OTHER, SELFPAY | PROVIDERS: PCP Family Medicine; Visit Provider Orthopaedic Surgery | DX: M48.062 Spinal stenosis, lumbar region with neurogenic claudication (principal) | CPT/HCPCS: 99213; 99214 ==

== ENCOUNTER → 2021-12-19 09:33 | Outpatient (BNVA) | payer MEDICARE, OTHER, SELFPAY | PROVIDERS: PCP Family Medicine; Referring Provider Orthopaedic Surgery; Visit Provider Anesthesiology Pain Medicine | DX: M51.17 Intervertebral disc disorders with radiculopathy, lumbosacral region (principal); M48.062 Spinal stenosis, lumbar region with neurogenic claudication; M79.604 Pain in right leg; M79.605 Pain in left leg | CPT/HCPCS: 99205 ==

== ENCOUNTER → 2022-01-08 12:36 | Outpatient (BNVA) | payer MEDICARE, OTHER, SELFPAY | PROVIDERS: Family Provider Family Medicine; PCP Family Medicine; Visit Provider Anesthesiology Pain Medicine | DX: M54.16 Radiculopathy, lumbar region (principal); M48.062 Spinal stenosis, lumbar region with neurogenic claudication | CPT/HCPCS: 64483; 64484; J1100; J3490 ==

== ENCOUNTER → 2022-01-15 10:23 | Outpatient (BNVA) | payer MEDICARE, OTHER, SELFPAY | PROVIDERS: Family Provider Family Medicine; PCP Family Medicine; Visit Provider Family Medicine | DX: Z00.00 Encounter for general adult medical examination without abnormal findings (principal); G89.18 Other acute postprocedural pain; M46.1 Sacroiliitis, not elsewhere classified; I10 Essential (primary) hypertension; R39.15 Urgency of urination | CPT/HCPCS: 80053; 85025 ==

== ENCOUNTER 2022-04-03 07:31 | Outpatient (CLI) | payer MEDICARE, OTHER, SELFPAY ==
--- NOTE | 2022-04-03 07:33 | MM_ITS ---
WS: [id number] BILATERAL SCREENING DIGITAL TOMOSYNTHESIS MAMMOGRAM WITH CAD HISTORY: SCREENING COMPARISON: 03/20/2021, 07/29/2019 and 05/18/2018 Bilateral CC and MLO views with tomosynthesis and synthetic mammography submitted. Computer aided det ection analyzed. Breast composition: The breasts are heterogeneously dense, which may obscure small masses. No suspici ous masses, microcalcifications or architectural distortion. Bilateral breast asymmetries and very co arse calcifications and arterial calcifications are stable. MM/[place] [id number] IMPRESSION: BI-RADS: 2-Benign FOLLOW UP: 1 Year Follow-up
== END 2022-04-03 07:32 | disposition home or self-care (01) ==
LOC: RAD 07:32
PROVIDERS: Family Provider Family Medicine; PCP Family Medicine; Visit Provider Family Medicine
DX: Z12.31 Encounter for screening mammogram for malignant neoplasm of breast (principal)
CPT/HCPCS: 77063; 77067

== ENCOUNTER → 2022-05-02 09:20 | Outpatient (BNVA) | payer MEDICARE, OTHER, SELFPAY | PROVIDERS: Family Provider Family Medicine; PCP Family Medicine; Visit Provider Anesthesiology Pain Medicine | DX: M51.17 Intervertebral disc disorders with radiculopathy, lumbosacral region (principal); M48.062 Spinal stenosis, lumbar region with neurogenic claudication; M79.604 Pain in right leg; M79.605 Pain in left leg; R20.2 Paresthesia of skin | CPT/HCPCS: 99214 ==

== ENCOUNTER 2022-05-14 08:57 | Outpatient (CLI) | payer MEDICARE, OTHER, SELFPAY ==
--- NOTE | 2022-05-14 09:30 | MR_ITS ---
WS: [id number] MRI LUMBAR SPINE NONCONTRAST HISTORY: pain COMPARISON: None available. TECHNIQUE: Sagittal and axial multisequence imaging is submitted. Mild straightening of the normal lumbar lordosis. L3 anterolisthesis by 3 mm. Mild anterior wedging o f L5 by 10%. No acute fracture. No marrow edema. Disc spaces are narrowed throughout the lumbar spine and at the thoracolumbar junction. Conus terminates normally at L1-2 disc level. T11-12: Small RIGHT paracentral disc protrusion. T12-L1: Diffuse annular disc bulging and osteophytic ridging. Mild RIGHT foraminal narrowing. L1-L2: Mild diffuse annular disc bulging with mild encroachment upon the ventral thecal sac. Mild adan ateral subarticular recess and foraminal stenosis. L2-L3: Mild annular disc bulging. Mild facet and ligamentum flavum hypertrophy. Mild subarticular rec ess and foraminal stenosis. L3-L4: Mild unroofing of the disc with annular disc bulging. Very small central disc protrusion. Mode rate ligamentum flavum and facet arthritis. Mild central and bilateral foraminal stenosis with modera te bilateral subarticular recess stenosis. There is encroachment and deformity of the traversing L4 n erve roots bilaterally. L4-L5: Diffuse annular disc bulging. Small fissure in the LEFT foraminal disc. Mild ligamentum flavum and facet arthritis. Mild bilateral subarticular recess and RIGHT foraminal stenosis. Moderate LEFT foraminal stenosis. L5-S1: Very mild foraminal narrowing. No central stenosis or disc protrusions. Multiple cortical cysts within each kidney. MR/MR lumbar spine wo con* [id number] IMPRESSION: 1. Chronic mild anterior wedging of L5 by 10%. 2. No acute fracture. 3. L3 anterolisthesis by 3 mm. 4. Mild bilateral subarticular and foraminal stenosis at L1-2 and L2-3. 5. Mild central with bilateral foraminal stenosis at L3. Moderate bilateral servin barticular recess stenosis at L3-4 with encroachment and deformity upon the tra versing L4 nerve roots. 6. Moderate LEFT foraminal stenosis at L4-5. 7. Mild bilateral subarticular recess and RIGHT foraminal stenosis at L4-5.
== END 2022-05-14 08:58 | disposition home or self-care (01) ==
PROVIDERS: PCP Family Medicine; Visit Provider Orthopaedic Surgery
DX: S32.050A Wedge compression fracture of fifth lumbar vertebra, initial encounter for closed fracture (principal); X58.XXXA Exposure to other specified factors, initial encounter; M48.061 Spinal stenosis, lumbar region without neurogenic claudication
CPT/HCPCS: 72148

== ENCOUNTER → 2022-05-20 14:45 | Outpatient (BNVA) | payer MEDICARE, OTHER, SELFPAY | PROVIDERS: PCP Family Medicine; Visit Provider Anesthesiology Pain Medicine | DX: M54.16 Radiculopathy, lumbar region (principal) | CPT/HCPCS: 64483; 64484; J1100; J3490 ==

== ENCOUNTER → 2022-05-21 10:56 | Outpatient (BNVA) | payer MEDICARE, OTHER, SELFPAY | PROVIDERS: PCP Family Medicine; Visit Provider Physician Assistant | DX: M48.062 Spinal stenosis, lumbar region with neurogenic claudication (principal) | CPT/HCPCS: 99213 ==

== ENCOUNTER → 2022-06-06 09:02 | Outpatient (BNVA) | payer MEDICARE, OTHER, SELFPAY | PROVIDERS: PCP Family Medicine; Visit Provider Anesthesiology Pain Medicine | DX: M51.17 Intervertebral disc disorders with radiculopathy, lumbosacral region (principal); M48.062 Spinal stenosis, lumbar region with neurogenic claudication; M79.604 Pain in right leg; M79.605 Pain in left leg | CPT/HCPCS: 99214 ==

== ENCOUNTER → 2022-07-02 10:53 | Outpatient (BNVA) | payer MEDICARE, OTHER, SELFPAY | PROVIDERS: PCP Family Medicine; Visit Provider Physician Assistant | DX: M48.062 Spinal stenosis, lumbar region with neurogenic claudication (principal); M51.36 Other intervertebral disc degeneration, lumbar region | CPT/HCPCS: 99212; 99213 ==

== ENCOUNTER 2022-07-02 15:23 | Outpatient (CLI) | payer MEDICARE, OTHER, SELFPAY | END 2022-07-02 15:24 | disposition home or self-care (01) | LOC: SPT 15:23 | PROVIDERS: PCP Family Medicine; Visit Provider Physician Assistant | DX: M51.36 Other intervertebral disc degeneration, lumbar region (principal) | CPT/HCPCS: 97760; L0637 ==

== ENCOUNTER → 2022-09-10 10:41 | Outpatient (BNVA) | payer MEDICARE, OTHER, SELFPAY | PROVIDERS: PCP Family Medicine; Visit Provider Physician Assistant | DX: M51.36 Other intervertebral disc degeneration, lumbar region (principal); M46.1 Sacroiliitis, not elsewhere classified | CPT/HCPCS: 99212 ==

== ENCOUNTER → 2022-09-30 10:17 | Outpatient (BNVA) | payer SELFPAY | PROVIDERS: PCP Family Medicine; Visit Provider Family Medicine | DX: Z13.6 Encounter for screening for cardiovascular disorders (principal) | CPT/HCPCS: 80061; 82947; 83036 ==

== ENCOUNTER → 2022-10-28 14:26 | Outpatient (BNVA) | payer MEDICARE, OTHER, SELFPAY | PROVIDERS: PCP Family Medicine; Visit Provider Family Medicine | DX: I10 Essential (primary) hypertension (principal); E78.00 Pure hypercholesterolemia, unspecified; Z00.00 Encounter for general adult medical examination without abnormal findings; M46.1 Sacroiliitis, not elsewhere classified | CPT/HCPCS: 80053; 80061; 85025 ==

== ENCOUNTER 2023-07-01 08:48 | Outpatient (CLI) | payer MEDICARE, OTHER, SELFPAY ==
--- NOTE | 2023-07-01 09:00 | MM_ITS ---
WS: [id number] Bilateral screening 3D tomosynthesis digital mammogram, 07/01/2023 Clinical Data: SCREENING Comparison: 04/03/2022, 03/20/2021, 07/29/2019, 05/18/2018, 08/23/2015, 08/03/2014, 02/19/2013, 08/06/2011 , 07/24/2010, 07/17/2029, 07/04/2008, 06/09/2007. Findings: The breast parenchymal pattern shows heterogeneous density no spiculated masses or clustered calcific ations are seen. There are no secondary signs of carcinoma. There are numerous large benign calcifica tions in both breasts. There are vascular calcifications. Impression: 1. Negative bilateral mammogram unchanged. 2. Recommend annual screening mammograms. MM/[place] [id number] BIRADS: 1-Negative FOLLOW UP: 1 Year Follow-up The CAD package checker was used.
== END 2023-07-01 08:49 | disposition home or self-care (01) ==
LOC: MOBLMAM 08:54
PROVIDERS: PCP Family Medicine; Visit Provider Family Medicine
DX: Z12.31 Encounter for screening mammogram for malignant neoplasm of breast (principal)
CPT/HCPCS: 77063; 77067

== ENCOUNTER → 2023-10-30 09:54 | Outpatient (BNVA) | payer MEDICARE, OTHER, SELFPAY | PROVIDERS: PCP Family Medicine; Visit Provider Family Medicine | DX: I10 Essential (primary) hypertension (principal); E78.00 Pure hypercholesterolemia, unspecified | CPT/HCPCS: 80053; 80061; 85025 ==

== ENCOUNTER → 2023-11-11 13:19 | Outpatient (BNVA) | payer MEDICARE, OTHER, SELFPAY | PROVIDERS: PCP Family Medicine; Visit Provider Podiatrist Foot & Ankle Surgery | DX: L60.3 Nail dystrophy (principal); Q82.8 Other specified congenital malformations of skin; I73.9 Peripheral vascular disease, unspecified | CPT/HCPCS: 11721; 17110; 99203 ==

== ENCOUNTER → 2024-03-09 12:17 | Outpatient (BNVA) | payer MEDICARE, OTHER, SELFPAY | PROVIDERS: PCP Family Medicine; Visit Provider Family Medicine | DX: I10 Essential (primary) hypertension (principal); E87.1 Hypo-osmolality and hyponatremia; I77.6 Arteritis, unspecified; M51.36 Other intervertebral disc degeneration, lumbar region | CPT/HCPCS: 80053; 85025 ==

== ENCOUNTER → 2024-03-12 10:17 | Outpatient (BNVA) | payer MEDICARE, OTHER, SELFPAY | PROVIDERS: PCP Family Medicine; Visit Provider Podiatrist Foot & Ankle Surgery | DX: L60.3 Nail dystrophy (principal); Q82.8 Other specified congenital malformations of skin; I73.9 Peripheral vascular disease, unspecified | CPT/HCPCS: 11721; 17110 ==

== ENCOUNTER → 2024-07-07 13:13 | Outpatient (BNVA) | payer MEDICARE, OTHER, SELFPAY | PROVIDERS: PCP Family Medicine; Visit Provider Podiatrist Foot & Ankle Surgery | DX: L60.3 Nail dystrophy (principal); Q82.8 Other specified congenital malformations of skin; I73.9 Peripheral vascular disease, unspecified | CPT/HCPCS: 11721; 17110 ==

== ENCOUNTER → 2024-09-21 13:00 | Outpatient (BNVA) | payer MEDICARE, OTHER, SELFPAY | PROVIDERS: PCP Family Medicine; Visit Provider Podiatrist Foot & Ankle Surgery | DX: L60.3 Nail dystrophy (principal); Q82.8 Other specified congenital malformations of skin; I73.9 Peripheral vascular disease, unspecified | CPT/HCPCS: 11721; 17110 ==

== ENCOUNTER → 2024-12-22 13:07 | Outpatient (BNVA) | payer MEDICARE, OTHER, SELFPAY | PROVIDERS: PCP Family Medicine; Visit Provider Podiatrist Foot & Ankle Surgery | DX: I73.9 Peripheral vascular disease, unspecified (principal); L60.3 Nail dystrophy; Q82.8 Other specified congenital malformations of skin; L60.8 Other nail disorders | CPT/HCPCS: 11721; 17110 ==

== ENCOUNTER → 2025-02-14 15:57 | Outpatient (BNVA) | payer MEDICARE, OTHER, SELFPAY | PROVIDERS: PCP Family Medicine; Visit Provider Family Medicine | DX: I10 Essential (primary) hypertension (principal) | CPT/HCPCS: 80053; 85025 ==

== ENCOUNTER → 2025-03-22 13:05 | Outpatient (BNVA) | payer MEDICARE, OTHER, SELFPAY | PROVIDERS: PCP Family Medicine; Visit Provider Podiatrist Foot & Ankle Surgery | DX: I73.9 Peripheral vascular disease, unspecified (principal); L60.3 Nail dystrophy; Q82.8 Other specified congenital malformations of skin; L60.8 Other nail disorders | CPT/HCPCS: 11721 ==

== ENCOUNTER → 2025-06-21 13:05 | Outpatient (BNVA) | payer MEDICARE, OTHER, SELFPAY | PROVIDERS: PCP Family Medicine; Visit Provider Podiatrist Foot & Ankle Surgery | DX: I73.9 Peripheral vascular disease, unspecified (principal); L60.3 Nail dystrophy; Q82.8 Other specified congenital malformations of skin; L60.8 Other nail disorders; L30.9 Dermatitis, unspecified | CPT/HCPCS: 11721; 17110; 99213 ==

== ENCOUNTER 2025-06-23 19:39 | Inpatient (IN) | payer MEDICARE, OTHER, SELFPAY ==
[2025-06-23 19:42] VITALS: BP 184/93; PULSE 83; TEMP 36.7; O2SAT 94; BMI 20.9
--- NOTE | 2025-06-23 22:23 | XRR_ITS ---
PROCEDURE INFORMATION: Exam: XR Left Wrist Exam date and time: 06/23/2025 10:37 PM Age: 85 years old Clinical indication: Injury or trauma; Fall; Blunt trauma (contusions or hematomas); Wrist; Left TECHNIQUE: Imaging protocol: Radiologic exam of the left wrist. Views: 3 or more views. COMPARISON: CR ( EX, ) 06/23/2025 10:37 PM FINDINGS: Bones/joints: The bones appear osteopenic. [id number] joint space narrowing and degenerative change at the base of the 1st thumb is noted. Osseous alignment is normal. Remaining joint spaces are relatively maintained. Soft tissues: Normal. XR/XR wrist LT min 3V* [id number] IMPRESSION: No acute osseous abnormality.
--- NOTE | 2025-06-23 22:23 | XRR_ITS ---
PROCEDURE INFORMATION: Exam: XR Left Hip Exam date and time: 06/23/2025 10:37 PM Age: 85 years old Clinical indication: Injury or trauma; Fall; Blunt trauma (contusions or hematomas); Left; Hip; Additional info: Fall, w pelvis please TECHNIQUE: Imaging protocol: Radiologic exam of the left hip. Views: 2 or 3 views hip with pelvis when performed. COMPARISON: MR lumbar spine wo con* [id number] 05/14/2022 9:48 AM FINDINGS: Bones/joints: Question of subtle cortical defect in the subcapital left femur, indeterminate for degenerative change versus acute fracture. Recommend CT hip/pelvis without contrast to exclude acute osseous injury. Right proximal femoral serpiginous sclerosis, consistent with bone infarct. The remaining imaged osseous structures are intact. Joint spaces are relatively maintained. Soft tissues: Normal. Vasculature: Pelvic phleboliths are present. XR/XR hip LT 2-3V wo/w pel* [id number] IMPRESSION: 1. Question of subtle cortical defect in the subcapital left femur, indeterminate for degenerative change versus acute fracture. Recommend CT hip/pelvis without contrast to exclude acute osseous injury. 2. No acute findings.
--- NOTE | 2025-06-23 22:23 | XRR_ITS ---
PROCEDURE INFORMATION: Exam: XR Left Shoulder Exam date and time: 06/23/2025 10:37 PM Age: 85 years old Clinical indication: Injury or trauma; Fall; Blunt trauma (contusions or hematomas); Shoulder; Left TECHNIQUE: Imaging protocol: Radiologic exam of the left shoulder. Views: 2 or more views. COMPARISON: CR (UP EX, ) 06/23/2025 10:37 PM FINDINGS: Bones/joints: Osteoarthritis of the acromioclavicular joint is present. No acute fracture. Glenohumeral joint space is maintained. No substantial degenerative change of the glenohumeral joint. Soft tissues: Normal. XR/XR shoulder LT min 2V* [id number] IMPRESSION: No acute osseous abnormality.
--- NOTE | 2025-06-23 22:23 | XRR_ITS ---
PROCEDURE INFORMATION: Exam: XR Chest Exam date and time: 06/23/2025 10:37 PM Age: 85 years old Clinical indication: Injury or trauma; Fall; Blunt trauma (contusions or hematomas) TECHNIQUE: Imaging protocol: Radiologic exam of the chest. Views: 1 view. COMPARISON: CR XR shoulder LT min 2V* [id number] 06/23/2025 10:37 PM FINDINGS: Lungs: Biapical pleural-parenchymal scarring is present. No confluent consolidation. Pleural spaces: No pneumothorax is seen. No pleural effusion. Heart/Mediastinum: Unremarkable. No cardiomegaly. Vasculature: Atherosclerotic changes of the aorta are noted. Bones/joints: Unremarkable. XR/XR chest 1V portable [id number] IMPRESSION: No acute findings.
--- NOTE | 2025-06-23 22:23 | XRR_ITS ---
PROCEDURE INFORMATION: Exam: XR Left Elbow Exam date and time: 06/23/2025 10:37 PM Age: 85 years old Clinical indication: Injury or trauma; Fall; Blunt trauma (contusions or hematomas); Elbow; Left TECHNIQUE: Imaging protocol: Radiologic exam of the left elbow. Views: 3 or more views. COMPARISON: CR ( EX, ) 06/23/2025 10:37 PM FINDINGS: Bones/joints: Normal. Soft tissues: Normal. XR/XR elbow LT min 3V* [id number] IMPRESSION: No acute findings.
--- NOTE | 2025-06-23 22:26 | W.ED.FALL ---
HPI - Fall General: Chief Complaint: Fall Stated Complaint: Fell on LT hip, shoulder, elbow Time Seen by Provider: 06/23/25 20:00 History of Present Illness: Patient is a 85-year-old female, takes care of her own ADLs, history of hypertension, presents to the ED due to fall. Content: Patient stated she swung around to her left, and fell directly on her left hip on the porch, with her left shoulder. She had to crawl back in the house to get her phone to call her son. This occurred just prior to arrival. Her son was able to assist her with her right foot, pivot her into a wheelchair, bring her in his car to the hospital. She did not have LOC. She has a skin tear on her left elbow, pain in her left shoulder, and mainly left hip pain. She cannot bear any weight on her left leg, and has not ambulated. No lightheadedness or dizziness. She has a habit of drinking not that many fluids a day. Associated symptoms-after fall: Reports difficulty walking (Pain with weightbearing at porokeratosis); Denies abdominal pain, chest pain or neck pain Related Data Home Medications ?Medication ?Instructions ?Recorded ?Confirmed aspirin 81 mg tablet,delayed 81 mg PO DAILY 12/28/19 06/21/25 release (Adult Low Dose Aspirin) Previous Rx's ?Medication ?Instructions ?Recorded acetaminophen 325 mg capsule 325 mg PO Q4H PRN fever or 01/18/21 postoperative pain pain #60 caps zinc gluconate 50 mg tablet 50 mg PO DAILY #14 tabs 06/12/21 LSO BRACE #1 ea 07/02/22 metoprolol tartrate 25 mg tablet 25 mg PO BID #180 tabs 02/14/25 amlodipine 2.5 mg tablet See Rx Instructions .Route 06/20/25 .COMPLEX #90 tabs triamcinolone acetonide 0.1 % 1 applic topical DAILY #15 grams 06/21/25 topical cream Allergies Allergy/AdvReac Type Severity Reaction Status Date / Time No Known Allergies Allergy Verified 06/23/25 19:47 Review of Systems General: Reports: 10 or more systems reviewed and unremarkable except in HPI and below Const: Denies: fever(s), chills or fatigue Eyes: Denies: change in vision Card: Denies: chest pain, palpitations or dyspnea on exertion Resp: Denies: dyspnea or productive cough GI: Denies: abdominal pain, nausea, vomiting, diarrhea or constipation : Denies: flank pain or difficulty voiding Musc: Reports: extremity pain (Painful lesions on the bottom of the feet), joint pain, joint stiffness and limited range of motion; Denies: neck pain, back pain or joint swelling Neuro: Reports: difficulty walking (Pain with weightbearing at porokeratosis); Denies: numbness in extremities Psych: Denies: anxiety, depression, suicidal ideation or homicidal ideation PFSH ED PFSH: Medical History (Updated 06/24/25 @ 00:43 by NELDA Merchant) Hypercholesteremia Hypertension Degenerative disc disease, lumbar Sacroiliac inflammation Surgical History History of total hysterectomy (~1985) SRINIVAS. Performed by Dr. Britt at [facility] [place] in [place], [place]. History of appendectomy Family History Sister Diabetes Hypertension Heart disease Family/Other Breast cancer maternal aunt 80's, maternal niece, maternal cousin 40's Denies family history of Colon cancer Ovarian cancer Clotting disorder Hyperlipidemia Anesthesia complication Bleeding disorder Uterine cancer Thyroid disease Stroke Social History Smoking and tobacco/nicotine status: never used tobacco/nicotine Alcohol intake: never Substance/Drug Use: never Physical Exam Const: COMMON NORMALS: no acute distress, average body habitus, patient oriented x3, no limitations, healthy appearing, alert and well nourished HENMT: COMMON NORMALS: normocephalic, atraumatic and hearing grossly normal bilaterally HEAD & SCALP: normocephalic and atraumatic Neck/C-Spine: COMMON NORMALS: full ROM and no lymphadenopathy Lymph: LYMPHATIC: no lymphadenopathy noted Chest: COMMONS NORMALS: normal inspection of the chest Resp: COMMON NORMALS: normal respiratory effort, No retractions and clear to auscultation bilaterally AUSCULTATION: clear to auscultation bilaterally Cardio: COMMON NORMALS: regular rate and regular rhythm RATE: regular rate RHYTHM: regular rhythm GI: COMMON NORMALS: Normal to inspection, nondistended, normoactive bowel sounds present, Soft to palpation, non-tender and No hepatosplenomegaly present PALPATION: Yes Soft to palpation and Yes No hepatosplenomegaly present Extremity: COMMON NORMALS: normal to inspection LEFT UPPER EXTREMITY: Yes shoulder joint Left shoulder joint: Yes inspection (No abnormality), Yes palpation (Tender proximal humerus) and Yes ROM (Fairly intact with minimal tenderness.) LEFT LOWER EXTREMITY: Yes hip joint Left hip: Yes inspection (No deformity), Yes palpation (Tender iliac crest), Yes ROM (Decreased) and Yes neurovascular exam (Intact) Neuro: COMMON NORMALS: patient oriented x3 SENSORIUM/ORIENTATION: Yes alert Skin: NARRATIVE SKIN EXAM: Skin tear left elbow Course Consultations: Consultation #1: Dr. Roberts not answering at this time. Going straight to voicemail. Will call hospitalist. Consultation #2: Dr. Gruber does not feel comfortable excepting without orthopedist Consultation #3: Hospitalist called back and will accept patient Additional Consultation(s): Dr. Roberts texted my phone back and has accept consultation Vital Signs: Vital signs: Vital Signs Temperature 98.1 F 06/23/25 19:42 Pulse Rate 83 06/23/25 19:42 Blood Pressure 184/93 06/23/25 19:42 Pulse Oximetry 94 06/23/25 19:42 Oxygen Delivery Me thod Room Air 06/23/25 19:42 MDM - Fall Medical Decision Making Patient is a 85-year-old female with fall just prior to arrival. She has a left subcapital hip fracture with minimal displacement. Discussed with Dr. Roberts whom will consult. Discussed with Dr. Gruber whom will admit. Medical Records I reviewed the patient's medical records. Lab Data I reviewed the patient's lab results. Radiology Impressions Chest X-Ray 06/23/25 22:23 IMPRESSION: No acute findings. Elbow X-Ray 06/23/25 22:23 IMPRESSION: No acute findings. Hip/Pelvis X-Ray 06/23/25 22:23 IMPRESSION: 1. Question of subtle cortical defect in the subcapital left femur, indeterminate for degenerative change versus acute fracture. Recommend CT hip/pelvis without contrast to exclude acute osseous injury. 2. No acute findings. Shoulder X-Ray 06/23/25 22:23 IMPRESSION: No acute osseous abnormality. Wrist X-Ray 06/23/25 22:23 IMPRESSION: No acute osseous abnormality. Pelvis CT 06/23/25 23:28 IMPRESSION: 1. Minimally displaced subcapital left femoral fracture. 2. The remaining imaged osseous structures are intact. 3. Cholelithiasis without evidence of acute cholecystitis. 4. Soft tissue contusion of the left hip is noted. All radiology interpretation(s) finalized by discharge Discharge Plan Discharge Patient Disposition: Admitted As Inpatient Clinical Impression: Closed subcapital fracture of left femur Condition: Stable Discharge Diet: As Directed Discharge Activity: Limit activity as instructed Coding Level of Care Code ED Production Line Operator for Marcela Mccormick
--- NOTE | 2025-06-23 23:28 | CTR_ITS ---
PROCEDURE INFORMATION: Exam: CT Pelvis Without Contrast, Skeleton Exam date and time: 06/23/2025 11:52 PM Age: 85 years old Clinical indication: Injury or trauma; Blunt trauma (contusions or hematomas); Prior surgery; Surgery date: 6+ months; Surgery type: Appy. Hysterectomy; Ground level fall. C/O left hip pain. Questionable left subcapital fracture noted on hip xray. ; Additional info: Subcapital hip fracture left TECHNIQUE: Imaging protocol: Computed tomography of the pelvis without contrast. Exam focused on the skeleton. Radiation optimization: All CT scans at this facility use at least one of these dose optimization techniques: automated exposure control; mA and/or kV adjustment per patient size (includes targeted exams where dose is matched to clinical indication); or iterative reconstruction. COMPARISON: CR (PELVIS, ) 06/23/2025 10:37 PM RADIATION DOSE METRICS: Total DLP (mGy-cm): 271.22 FINDINGS: Gallbladder and biliary ducts: Cholelithiasis is present without wall thickening or pericholecystic fluid. Intestine: Intraluminal hyperattenuating foreign bodies are seen in the colon, likely ingested material/medication in the absence provided ingested foreign body clinical history. Bones/joints: Minimally displaced subcapital left femoral fracture. The bones appear osteopenic. The remaining imaged osseous structures are intact. Joint spaces are maintained. Partially imaged chronic L4 inferior endplate deformity. Intervertebral vacuum phenomena, consistent with chronic degenerative change. Soft tissue contusion of the left hip is noted. Degenerative joint and disc disease is seen in the imaged spine. Soft tissues: See Bones/joints finding. CT/CT bony pelvis [id number] IMPRESSION: 1. Minimally displaced subcapital left femoral fracture. 2. The remaining imaged osseous structures are intact. 3. Cholelithiasis without evidence of acute cholecystitis. 4. Soft tissue contusion of the left hip is noted.
[2025-06-23] MEDS: ondansetron 2 mg/ML SDV 2 mL 4 MG IVP (23:41)
[2025-06-23] MEDS: fentaNYL 50 mcg/mL INJ 2mL IVP (23:43)
[2025-06-23] MEDS: mupirocin oint 22 gm 1 APPLIC TOPICAL (23:54)
[2025-06-24] VITALS (17 sets, daily range): BP systolic 137–174; BP diastolic 66–95; PULSE 74–93; RESP 16–18; TEMP 36.3–36.6; O2SAT 88–94; BMI 20.9
--- NOTE | 2025-06-24 01:10 | ECG_ITS ---
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 Measurements Intervals [employer] Rate: 104 P: 0 NH: 0 QRS: 22 QRSD: 82 T: 62 QT: 350 QTc: 461 Interpretive Statements INDETERMINATE RHYTHM DUE TO TRACING ARTIFACT - PLEASE REPEAT EKG IRREGULAR RHYTHM WITH ECTOPIC BEATS MINIMAL VOLTAGE CRITERIA FOR LVH, CONSIDER NORMAL VARIANT [MEETS CRITERIA IN ONE OF: R(aVL), S(V1), R(V5), R(V5/V6)+S(V1)] NONSPECIFIC ST & T-WAVE ABNORMALITY ABNORMAL RHYTHM ECG No previous ECG available for comparison Electronically Signed On 06-25-2025 20:57:26 CDT by Roldan Rey M.D. [email or web address]
--- NOTE | 2025-06-24 01:12 | XRR_ITS ---
PROCEDURE INFORMATION: Exam: XR Left Femur Exam date and time: 06/24/2025 1:14 AM Age: 85 years old Clinical indication: Injury or trauma; Blunt trauma; Hip; Fall with left subcapital fracture. Planning for ortho. ; Additional info: Left subcapital hip fracture, per Dr. Roberts's request TECHNIQUE: Imaging protocol: Radiologic exam of the left femur. Views: 2 views. COMPARISON: CT bony pelvis [id number] 06/23/2025 11:52 PM FINDINGS: Bones/joints: Stable alignment of the subcapital femoral fracture. No distal femoral fracture. Imaged pelvis is intact. Soft tissues: Unremarkable. XR/XR femur LT min 2V* [id number] IMPRESSION: 1. Stable alignment of the subcapital femoral fracture. 2. No distal femoral fracture.
[2025-06-24] MEDS: HYDROcodone-acetaminophen 5-325 mg Tablet 1 TAB PO (01:19)
[2025-06-24] MEDS: diphenhydrAMINE 50 mg/mL SDV 1mL 25 MG IVP (01:20)
[2025-06-24 01:24] LABS: Hematocrit 38.8 % (36-47); Hemoglobin 12.90 g/dL (11.27-16.99); Mean Corpuscular HGB Conc 33.2 g/dL (30-55); Mean Corpuscular Hemoglobin 28.3 pg (27-33); Mean Corpuscular Volume 85.1 fl (85-98); Nucleated Red Blood Cells % 0 %; Platelet Count 217 10^3/cmm (157-399); Red Blood Count 4.56 10^6/uL (3.85-5.65); White Blood Count 10.81 10^3/uL (3.29-11.43)
[2025-06-24 01:44] LABS: Alanine Aminotransferase 16 U/L (0-33); Albumin Level 4.0 g/dL (3.5-5.2); Alkaline Phosphatase 85 U/L (35-105); Anion Gap 18.4 (5-19); Aspartate Amino Transferase 23 U/L (0-32); Blood Urea Nitrogen 10 mg/dL (8-23); Calcium 9.2 mg/dL (8.5-10.5); Carbon Dioxide 23 mmol/L (22-29); Chloride 97 mmol/L (98-107); Creatinine Clr Calc Pharmacy 47.1485; Globulin 4.9 g/dL (1.3-4.6); Glucose 154 mg/dL (65-115); Osmolality Calculated 282 mOsm/kg (285-295); Potassium 3.4 mmol/L (3.5-5.1); Sodium 135 mmol/L (136-145); Total Protein 8.9 g/dL (6.6-8.7)
--- NOTE | 2025-06-24 01:44 | PM.HP ---
Providers/Chief Complaint Admitting Physician: INDIRA BOWER--DO--patient admitted after 12 midnight Primary Care Provider: Abeba Han MD Chief Complaint: Fell on LT hip, shoulder, elbow History of Present Illness Noris Oliveros is a 85 year old female is very alert awake oriented able to take care of self but happened to have a mechanical fall fracturing left hip. Patient is in for care and possible surgery of the left hip. Patient is n.p.o. for care. Must continue to follow through and optimize. Pain management aids with Dilaudid patient is a allergic codeine and cannot take morphine. Otherwise patient had no complaints. Review of Systems Narrative: System review of 110 organ review is significant for musculoskeletal. Medications/Allergies Home Medications ?Medication ?Instructions ?Recorded ?Confirmed ?Last Taken ?Type aspirin 81 mg tablet,delayed 81 mg PO DAILY 12/28/19 06/21/25 06/09/21 History release (Adult Low Dose Aspirin) acetaminophen 325 mg capsule 325 mg PO Q4H PRN fever or 01/18/21 06/21/25 Unknown Rx postoperative pain pain #60 caps zinc gluconate 50 mg tablet 50 mg PO DAILY #14 tabs 06/12/21 06/21/25 Unknown Rx LSO BRACE #1 ea 07/02/22 06/21/25 Unknown Rx metoprolol tartrate 25 mg tablet 25 mg PO BID #180 tabs 02/14/25 06/21/25 Unknown Rx amlodipine 2.5 mg tablet See Rx Instructions .Route 06/20/25 06/21/25 Unknown Rx .COMPLEX #90 tabs triamcinolone acetonide 0.1 % 1 applic topical DAILY #15 grams 06/21/25 06/21/25 Unknown Rx topical cream Allergies Allergy/AdvReac Type Severity Reaction Status Date / Time No Known Allergies Allergy Verified 06/23/25 19:47 PFSH Acute PFSH: Medical History Hypercholesteremia Hypertension Degenerative disc disease, lumbar Sacroiliac inflammation Surgical History History of total hysterectomy (~1985) SRINIVAS. Performed by Dr. Britt at [facility] in [place], [place]. History of appendectomy Family History Sister Diabetes Hypertension Heart disease Family/Other Breast cancer maternal aunt 80's, maternal niece, maternal cousin 40's Denies family history of Colon cancer Ovarian cancer Clotting disorder Hyperlipidemia Anesthesia complication Bleeding disorder Uterine cancer Thyroid disease Stroke Social History Smoking and tobacco/nicotine status: never used tobacco/nicotine Alcohol intake: never Substance/Drug Use: never Vitals/I&O/Wt Last Vital Signs Temp 98.1 F 06/23/25 19:42 Pulse 92 06/24/25 01:39 Resp 16 06/24/25 01:39 BP 168/80 06/24/25 01:39 Pulse Ox 92 06/24/25 01:39 O2 Del Method Room Air 06/24/25 01:39 06/23/25 06/23/25 06/24/25 14:59 22:59 06:59 Intake Total 1000 / 1000 Balance 1000 / 1000 Weight last 48 hrs Weight 58.967 kg Physical Exam Narrative: Patient is very jovial and very polite HEENT normocephalic atraumatic neck neck is supple cardiovascular heart rate is regular lungs are pretty much clear abdomen soft nontender nondistended unremarkable extremities are intact no edema has good pulses. Except for the affected left lower extremity with fracture neurology has no focality lab studies lab studies reviewed and noted. Urinary Catheter Management: Shearer: Cath Placed During This Visit: yes Urinary Catheter Date of Insertion: 06/24/25 Urinary Catheter Time of Insertion: 01:40 Data 06/24/25 05:38 06/24/25 05:38 A&P Assessment and plan 1. Closed subcapital fracture of left femur: 2. Hypercholesteremia: 3. Sacroiliac inflammation: 4. Degenerative disc disease, lumbar: 5. Hypertension: Plan: Left hip subcapital fracture status post fall - Patient be admitted to general medical floor - N.p.o. in preparation for surgery - Pain management optimizing with Dilaudid Hypertension -Keep patient normotensive Chronic pain syndrome - NH with patient home medicine. PDMP PDMP Reviewed: Last Reviewed 06/24/25 06:58 by Indira Bower MD Attestations Medical Necessity Statement*: Patient has sustained left hip fracture status post fall will need at least 2 midnights for care. Coding Level of Care Code 19124 Diagnoses Closed subcapital fracture of left femur S72.012A Hypercholesteremia E78.00 Sacroiliac inflammation M46.1 Degenerative disc disease, lumbar M51.369 Hypertension I10 Time Spent (min) 60
[2025-06-24 05:55] LABS: Hematocrit 36.1 % (36-47); Hemoglobin 11.90 g/dL (11.27-16.99); Mean Corpuscular HGB Conc 33.0 g/dL (30-55); Mean Corpuscular Hemoglobin 28.3 pg (27-33); Mean Corpuscular Volume 86.0 fl (85-98); Nucleated Red Blood Cells % 0 %; Platelet Count 213 10^3/cmm (157-399); Red Blood Count 4.20 10^6/uL (3.85-5.65); White Blood Count 8.18 10^3/uL (3.29-11.43)
[2025-06-24 06:07] LABS: Alanine Aminotransferase 14 U/L (0-33); Albumin Level 3.9 g/dL (3.5-5.2); Alkaline Phosphatase 80 U/L (35-105); Anion Gap 17.4 (5-19); Aspartate Amino Transferase 22 U/L (0-32); Blood Urea Nitrogen 7 mg/dL (8-23); Calcium 9.1 mg/dL (8.5-10.5); Carbon Dioxide 23 mmol/L (22-29); Chloride 101 mmol/L (98-107); Creatinine Clr Calc Pharmacy 47.1485; Globulin 4.3 g/dL (1.3-4.6); Glucose 124 mg/dL (65-115); Osmolality Calculated 285 mOsm/kg (285-295); Potassium 3.4 mmol/L (3.5-5.1); Sodium 138 mmol/L (136-145); Total Protein 8.2 g/dL (6.6-8.7)
[2025-06-24] MEDS: morphine 4 mg/mL SDV 1 mL IVP ×3 (09:47→23:13)
--- NOTE | 2025-06-24 10:24 | PC.SOCIAL ---
IMM Updated Updated pt on IMM. No questions voiced. Provided pt a copy. Initialed, dated, & timed a copy & placed in chart.
[2025-06-24] MEDS: HYDROmorphone 0.5 MG/0.5 ML INJ IVP (11:14)
[2025-06-24] MEDS: heparin 5,000 unit/mL INJ 1 mL 5000 UNIT SUBCUT (12:07)
[2025-06-24] MEDS: ondansetron 2 mg/ML SDV 2 mL 4 MG IVP ×2 (12:07→20:52)
--- NOTE | 2025-06-24 13:42 | PM.CONSULT ---
Providers/Reason For Consult Consulting Physician/Specialty*: Ran Roberts DO/orthopedic surgery Reason for Consult*: Left hip displaced subcapital femoral neck fracture Requesting Physician: Dr. Nielsen Attending Physician: Cuong Nielsen MD Primary Care Provider: Abeba Han MD History of Present Illness History of Present Illness Noris Oliveros is a 85 year old female who lives at home by herself and sustained a ground-level fall onto her left hip. She is unable to bear weight. Brought to the emergency department underwent imaging and was found to have a displaced left hip subcapital femoral neck fracture. Patient denies any anticoagulants besides a daily baby aspirin. No other complaints of pain at this time. Patient lives at home. Ambulates with a rollator walker at all times. No other complaints at this time. Review of Systems General: Reports: 10 or more systems reviewed and unremarkable except in HPI and below Medications/Allergies Home Medications ?Medication ?Instructions ?Recorded ?Confirmed ?Last Taken ?Type aspirin 81 mg tablet,delayed 81 mg PO DAILY 12/28/19 06/24/25 06/23/25 08:00 History release (Adult Low Dose Aspirin) acetaminophen 325 mg capsule 325 mg PO Q4H PRN fever or 01/18/21 06/24/25 Unknown Rx postoperative pain pain #60 caps zinc gluconate 50 mg tablet 50 mg PO DAILY #14 tabs 06/12/21 06/24/25 06/20/25 Rx LSO BRACE #1 ea 07/02/22 06/24/25 Unknown Rx metoprolol tartrate 25 mg tablet 25 mg PO BID #180 tabs 02/14/25 06/24/25 06/23/25 08:00 Rx amlodipine 2.5 mg tablet See Rx Instructions .Route 06/20/25 06/24/25 06/23/25 08:00 Rx .COMPLEX #90 tabs triamcinolone acetonide 0.1 % 1 applic topical DAILY #15 grams 06/21/25 06/24/25 06/21/25 Rx topical cream ascorbic acid (vitamin C) 250 mg 250 mg PO BID 06/24/25 06/24/25 06/21/25 History tablet (Vitamin C) guaifenesin 400 mg tablet (Mucus 400 mg PO QID PRN mucus 06/24/25 06/24/25 06/23/25 10:00 History Relief) Allergies Allergy/AdvReac Type Severity Reaction Status Date / Time No Known Allergies Allergy Verified 06/23/25 19:47 Current Medications Generic Name Dose Route Start Last Admin Trade Name Freq PRN Reason Stop Dose Admin Docusate Sodium 100 mg 06/24/25 05:00 06/24/25 05:06 Docusate Sodium 100 Mg Capsule PO 100 mg BID SHIRA Administration Heparin Sodium (Porcine) 5,000 unit 06/24/25 01:45 06/24/25 12:07 Heparin 5,000 Unit/Ml Inj 1 Ml SUBCUT 5,000 unit Q12H SHIRA Administration Hydromorphone HCl 0.5 mg 06/24/25 07:04 06/24/25 11:14 Hydromorphone 0.5 Mg/0.5 Ml Inj IVP 0.5 mg Q4H PRN Administration AGITATION Sodium Chloride 1,000 mls @ 75 mls/hr 06/24/25 01:45 06/24/25 03:26 Sodium Chloride 0.9% IV 75 mls/hr .[id number] SHIRA Administration Morphine Sulfate 4 mg 06/24/25 01:37 06/24/25 09:47 Morphine 4 Mg/Ml Sdv 1 Ml IVP 4 mg Q4H PRN Administration SEVERE PAIN Ondansetron HCl 4 mg 06/24/25 01:37 06/24/25 12:07 Ondansetron 2 Mg/Ml Sdv 2 Ml IVP 4 mg Q8H PRN Administration vomiting, or N/V if npo PFSH Acute PFSH: Medical History Hypercholesteremia Hypertension Degenerative disc disease, lumbar Sacroiliac inflammation Surgical History History of total hysterectomy (~1985) SRINIVAS. Performed by Dr. Britt at [facility] in [place], [place]. History of appendectomy Family History Sister Diabetes Hypertension Heart disease Family/Other Breast cancer maternal aunt 80's, maternal niece, maternal cousin 40's Denies family history of Colon cancer Ovarian cancer Clotting disorder Hyperlipidemia Anesthesia complication Bleeding disorder Uterine cancer Thyroid disease Stroke Social History Smoking and tobacco/nicotine status: never used tobacco/nicotine Alcohol intake: never Substance/Drug Use: never Vitals/I&O/Wt Last Vital Signs Temp 97.8 F 06/24/25 12:00 Pulse 89 06/24/25 12:00 Resp 16 06/24/25 12:00 BP 145/88 06/24/25 12:00 Pulse Ox 91 06/24/25 12:00 O2 Del Method Room Air 06/24/25 12:00 06/23/25 06/24/25 06/24/25 22:59 06:59 14:59 Intake Total 1000 / 1000 Output Total 1600 / 1600 1350 / 1350 Balance -600 / -600 -1350 / -1350 Weight last 48 hrs Weight 130 lb Weight 130 lb Physical Exam Narrative: Examination left hip: Examination left hip mild slight external rotation with pain reproducible at the left hip at the groin. Patient has a positive logroll examination unable to perform Stinchfield secondary to pain. Negative pelvic compression test. Patient is able to wiggle the toes plantarflex and dorsiflex ankle sensation tact light touch distally, distal pulse palpable Secondary survey examination unremarkable to the bilateral upper extremities and right lower extremity joints. Urinary Catheter Management: Shearer: Cath Placed During This Visit: yes Reason for Continuing Indwelling Catheter: Required Immobilization for Trauma or Surgery or Anesthesia Urinary Catheter Date of Insertion: 06/24/25 Urinary Catheter Time of Insertion: 01:40 Data 06/25/25 05:19 06/25/25 05:19 Xray Ortho: Radiologist's impression: Ordering Provider/Ordering MD: Stacie Burdick Date of Service: 06/24/25 Procedure(s): XR femur LT min 2V* [id number] Accession Number(s): [id number] Report Number: [id number] PROCEDURE INFORMATION: Exam: XR Left Femur Exam date and time: 06/24/2025 1:14 AM Age: 85 years old Clinical indication: Injury or trauma; Blunt trauma; Hip; Fall with left subcapital fracture. Planning for ortho. ; Additional info: Left subcapital hip fracture, per Dr. Roberts's request TECHNIQUE: Imaging protocol: Radiologic exam of the left femur. Views: 2 views. COMPARISON: CT bony pelvis [id number] 06/23/2025 11:52 PM FINDINGS: Bones/joints: Stable alignment of the subcapital femoral fracture. No distal femoral fracture. Imaged pelvis is intact. Soft tissues: Unremarkable. XR/XR femur LT min 2V* [id number] IMPRESSION: 1. Stable alignment of the subcapital femoral fracture. 2. No distal femoral fracture. Ordering Provider/Ordering MD: Stacie Burdick Date of Service: 06/23/25 Procedure(s): CT bony pelvis 14547 Accession Number(s): [id number] Report Number: [id number] PROCEDURE INFORMATION: Exam: CT Pelvis Without Contrast, Skeleton Exam date and time: 06/23/2025 11:52 PM Age: 85 years old Clinical indication: Injury or trauma; Blunt trauma (contusions or hematomas); Prior surgery; Surgery date: 6+ months; Surgery type: Appy. Hysterectomy; Ground level fall. C/O left hip pain. Questionable left subcapital fracture noted on hip xray. ; Additional info: Subcapital hip fracture left TECHNIQUE: Imaging protocol: Computed tomography of the pelvis without contrast. Exam focused on the skeleton. Radiation optimization: All CT scans at this facility use at least one of these dose optimization techniques: automated exposure control; mA and/or kV adjustment per patient size (includes targeted exams where dose is matched to clinical indication); or iterative reconstruction. COMPARISON: CR ([facility], ) 06/23/2025 10:37 PM RADIATION DOSE METRICS: Total DLP (mGy-cm): 271.22 FINDINGS: Gallbladder and biliary ducts: Cholelithiasis is present without wall thickening or pericholecystic fluid. Intestine: Intraluminal hyperattenuating foreign bodies are seen in the colon, likely ingested material/medication in the absence provided ingested foreign body clinical history. Bones/joints: Minimally displaced subcapital left femoral fracture. The bones appear osteopenic. The remaining imaged osseous structures are intact. Joint spaces are maintained. Partially imaged chronic L4 inferior endplate deformity. Intervertebral vacuum phenomena, consistent with chronic degenerative change. Soft tissue contusion of the left hip is noted. Degenerative joint and disc disease is seen in the imaged spine. Soft tissues: See Bones/joints finding. CT/CT bony pelvis [id number] IMPRESSION: 1. Minimally displaced subcapital left femoral fracture. 2. The remaining imaged osseous structures are intact. 3. Cholelithiasis without evidence of acute cholecystitis. 4. Soft tissue contusion of the left hip is noted. Ordering Provider/Ordering MD: Stacie Burdick Date of Service: 06/23/25 Procedure(s): XR hip LT 2-3V wo/w pel* [id number] Accession Number(s): [id number] Report Number: [id number] PROCEDURE INFORMATION: Exam: XR Left Hip Exam date and time: 06/23/2025 10:37 PM Age: 85 years old Clinical indication: Injury or trauma; Fall; Blunt trauma (contusions or hematomas); Left; Hip; Additional info: Fall, w pelvis please TECHNIQUE: Imaging protocol: Radiologic exam of the left hip. Views: 2 or 3 views hip with pelvis when performed. COMPARISON: MR lumbar spine wo con* [id number] 05/14/2022 9:48 AM FINDINGS: Bones/joints: Question of subtle cortical defect in the subcapital left femur, indeterminate for degenerative change versus acute fracture. Recommend CT hip/pelvis without contrast to exclude acute osseous injury. Right proximal femoral serpiginous sclerosis, consistent with bone infarct. The remaining imaged osseous structures are intact. Joint spaces are relatively maintained. Soft tissues: Normal. Vasculature: Pelvic phleboliths are present. XR/XR hip LT 2-3V wo/w pel* [id number] IMPRESSION: 1. Question of subtle cortical defect in the subcapital left femur, indeterminate for degenerative change versus acute fracture. Recommend CT hip/pelvis without contrast to exclude acute osseous injury. 2. No acute findings. Ordering Provider/Ordering MD: Stacie Burdick Date of Service: 06/23/25 Procedure(s): XR elbow LT min 3V* [id number] Accession Number(s): [id number] Report Number: [id number] PROCEDURE INFORMATION: Exam: XR Left Elbow Exam date and time: 06/23/2025 10:37 PM Age: 85 years old Clinical indication: Injury or trauma; Fall; Blunt trauma (contusions or hematomas); Elbow; Left TECHNIQUE: Imaging protocol: Radiologic exam of the left elbow. Views: 3 or more views. COMPARISON: CR (UP EXM, ) 06/23/2025 10:37 PM FINDINGS: Bones/joints: Normal. Soft tissues: Normal. XR/XR elbow LT min 3V* [id number] IMPRESSION: No acute findings. Ordering Provider/Ordering MD: Stacie Burdick Date of Service: 06/23/25 Procedure(s): XR shoulder LT min 2V* [id number] Accession Number(s): [id number] Report Number: [id number] PROCEDURE INFORMATION: Exam: XR Left Shoulder Exam date and time: 06/23/2025 10:37 PM Age: 85 years old Clinical indication: Injury or trauma; Fall; Blunt trauma (contusions or hematomas); Shoulder; Left TECHNIQUE: Imaging protocol: Radiologic exam of the left shoulder. Views: 2 or more views. COMPARISON: CR ([facility], ) 06/23/2025 10:37 PM FINDINGS: Bones/joints: Osteoarthritis of the acromioclavicular joint is present. No acute fracture. Glenohumeral joint space is maintained. No substantial degenerative change of the glenohumeral joint. Soft tissues: Normal. XR/XR shoulder LT min 2V* [id number] IMPRESSION: No acute osseous abnormality. A&P Assessment and plan 1. Closed subcapital fracture of left femur: Plan: Orthopedics consulted Hospitalist admitted patient is primary Imaging reviewed?patient on x-rays has a minimally displaced however on CT scan more appreciable displacement noted consistent with a displaced left?hip subcapital femoral neck fracture Labs reviewed Pain control Nonweightbearing left lower extremity May have a diet today N.p.o. at midnight Plan to add on for surgery tomorrow for a left?hip?hemiarthroplasty Patient understands agrees with current plan. All questions answered. MDM: Patient 85year-old female who sustained a ground-level fall and has a displaced left?hip?femoral neck fracture.? She was seen eval in the emergency department admitted and found to have this fracture.? Orthopedics was consulted.? Patient lives at home by herself and does utilize a walker at baseline. we talked about her treatment options as far as nonoperative versus operative intervention.? We talked about the risks benefits complication alternatives with surgery.? Risk of surgery include but are not limited to make it better make it worse injury to nerves vessels or tendons blood clot, heart attack, stroke, on the table, infection,?hip?instability, periprosthetic fracture.? Understanding risk of surgery patient understands and agrees with current plan.? All questions have been answered at this time.? Through shared decision-making elects to proceed with surgical intervention for a left?hip?hemiarthroplasty.? Given this displacement I do not feel as though this would be a good option for fixing this and a hip hemiarthroplasty would be a more predictable and get her weightbearing sooner for earlier mobilization given she has a baseline ambulation with a walker. Also benefits for surgery would be for a pain control as well. as result we elected proceed with surgical intervention.? Plan will be for a left?hip?hemiarthroplasty tomorrow.? All questions answered at this time. PDMP PDMP Reviewed: Not Reviewed Coding Level of Care Code Acute Code for [facility] Fwd Diagnoses Closed subcapital fracture of left femur S72.012A
--- NOTE | 2025-06-24 15:19 | ANES.PREANE2 ---
Pre-Anesthetic Assessment Height/Weight: Height 5 ft 6 in Weight 130 lb Temp Pulse Resp BP Pulse Ox O2 Del Method 97.8 F 86 16 145/88 91 Room Air 06/24/25 12:00 06/24/25 13:59 06/24/25 12:00 06/24/25 12:00 06/24/25 12:00 06/24/25 12:00 Preop Diagnosis: Left hip femoral neck fracture Operation Date: 06/25/25 10:00 Proposed Procedures p Closed Reduction Percutaneous Pinning Hip Screw vs(Left) - Ran Armando, DO s Hemiarthroplasty Hip(Left) - Ran Roberts, DO Was Beta Yanet taken within 24 hours: Yes Was Clonidine taken within 24 hours: N/A Social No alcohol and No tobacco Exam alert, oriented x 3, clear to auscultation bilaterally and regular rate & rhythm Airway Submandibular: within normal limits Cervical ROM: within normal limits Mallampati: Class III Dentition: full Comments: Comments: Denies any loose teeth Anesthetic Plan ASA status: 3 Anesthesia: General Other: No prior issues with anesthesia Plan for n.p.o. at midnight History of hypertension on amlodipine and metoprolol Labs reviewed from today and acceptable for procedure, type and screen ordered Patient reports performing all ADLs Plan for general anesthesia Medications/Allergies Home Medications ?Medication ?Instructions ?Recorded ?Confirmed ?Last Taken ?Type aspirin 81 mg tablet,delayed 81 mg PO DAILY 12/28/19 06/24/25 06/23/25 08:00 History release (Adult Low Dose Aspirin) acetaminophen 325 mg capsule 325 mg PO Q4H PRN fever or 01/18/21 06/24/25 Unknown Rx postoperative pain pain #60 caps zinc gluconate 50 mg tablet 50 mg PO DAILY #14 tabs 06/12/21 06/24/25 06/20/25 Rx LSO BRACE #1 ea 07/02/22 06/24/25 Unknown Rx metoprolol tartrate 25 mg tablet 25 mg PO BID #180 tabs 02/14/25 06/24/25 06/23/25 08:00 Rx amlodipine 2.5 mg tablet See Rx Instructions .Route 06/20/25 06/24/25 06/23/25 08:00 Rx .COMPLEX #90 tabs triamcinolone acetonide 0.1 % 1 applic topical DAILY #15 grams 06/21/25 06/24/25 06/21/25 Rx topical cream ascorbic acid (vitamin C) 250 mg 250 mg PO BID 06/24/25 06/24/25 06/21/25 History tablet (Vitamin C) guaifenesin 400 mg tablet (Mucus 400 mg PO QID PRN mucus 06/24/25 06/24/25 06/23/25 10:00 History Relief) Allergies Allergy/AdvReac Type Severity Reaction Status Date / Time No Known Allergies Allergy Verified 06/23/25 19:47 Current Medications Generic Name Dose Route Start Last Admin Trade Name Freq PRN Reason Stop Dose Admin Docusate Sodium 100 mg 06/24/25 05:00 06/24/25 05:06 Docusate Sodium 100 Mg Capsule PO 100 mg BID SHIRA Administration Heparin Sodium (Porcine) 5,000 unit 06/24/25 01:45 06/24/25 12:07 Heparin 5,000 Unit/Ml Inj 1 Ml SUBCUT 5,000 unit Q12H SHIRA Administration Hydromorphone HCl 0.5 mg 06/24/25 07:04 06/24/25 11:14 Hydromorphone 0.5 Mg/0.5 Ml Inj IVP 0.5 mg Q4H PRN Administration AGITATION Sodium Chloride 1,000 mls @ 75 mls/hr 06/24/25 01:45 06/24/25 14:23 Sodium Chloride 0.9% IV 75 mls/hr .[id number] SHIRA Administration Morphine Sulfate 4 mg 06/24/25 01:37 06/24/25 09:47 Morphine 4 Mg/Ml Sdv 1 Ml IVP 4 mg Q4H PRN Administration SEVERE PAIN Ondansetron HCl 4 mg 06/24/25 01:37 06/24/25 12:07 Ondansetron 2 Mg/Ml Sdv 2 Ml IVP 4 mg Q8H PRN Administration vomiting, or N/V if npo PFSH Anesthesia Medical History Hypercholesteremia Hypertension Degenerative disc disease, lumbar Sacroiliac inflammation Surgical History History of total hysterectomy (~1985) SRINIVAS. Performed by Dr. Britt at [facility] [place] in [place], [place]. History of appendectomy Family History Sister Diabetes Hypertension Heart disease Family/Other Breast cancer maternal aunt 80's, maternal niece, maternal cousin 40's Denies family history of Colon cancer Ovarian cancer Clotting disorder Hyperlipidemia Anesthesia complication Bleeding disorder Uterine cancer Thyroid disease Stroke Social History Smoking and tobacco/nicotine status: never used tobacco/nicotine Alcohol intake: never Substance/Drug Use: never Data Anesthesia 06/24/25 05:38 06/24/25 05:38 Short CBC 06/24/25 06/24/25 Range/Units 01:15 05:38 WBC 10.81 8.18 (3.29-11.43) 10^3/uL Hgb 12.90 11.90 (11.27-16.99) g/dL Hct 38.8 36.1 (36-47) % MCV 85.1 86.0 (85-98) fl Plt Count 217 213 (157-399) 10^3/cmm Neut % (Auto) 84.9 82.9 % Neut # (Auto) 9.18 H 6.79 (1.8-7.7) 10^3/uL BMP 06/24/25 06/24/25 01:15 05:38 Sodium 135 L 138 Potassium 3.4 L 3.4 L Chloride 97 L 101 Carbon Dioxide 23 23 BUN 10 7 L Creatinine 0.7 0.5 Glucose 154 H 124 H Calcium 9.2 9.1 Liver Function 06/24/25 06/24/25 Range/Units 01:15 05:38 Total Bilirubin 0.6 0.5 (0.15-1.2) mg/dL AST 23 22 (0-32) U/L ALT 16 14 (0-33) U/L Alkaline Phosphatase 85 80 (35-105) U/L Albumin 4.0 3.9 (3.5-5.2) g/dL Cardiac Studies: Echocardiogram 06/10/21
--- NOTE | 2025-06-24 16:06 | P.PN_ITS ---
Subjective 2 Subjective: Patient was seen this morning, she is alert oriented x 3, following all commands, she does complain of hip pain but is under control, denies any chest pain, no shortness of breath, denies any head trauma, no loss of consciousness Vitals/I&O/Wt Last Vital Signs Temp 97.8 F 06/24/25 12:00 Pulse 86 06/24/25 13:59 Resp 16 06/24/25 12:00 BP 145/88 06/24/25 12:00 Pulse Ox 91 06/24/25 12:00 O2 Del Method Room Air 06/24/25 12:00 06/24/25 06/24/25 06/24/25 06:59 14:59 22:59 Intake Total 1000 / 1000 881.25 / 881.25 Output Total 1600 / 1600 1350 / 1350 Balance -600 / -600 -468.75 / -468.75 Weight last 48 hrs Weight 58.967 kg Weight 58.967 kg Physical Exam 2 Const: COMMON NORMALS: no acute distress and patient oriented x3 Eye: COMMON NORMALS: Equal, round and reactive pupils present PUPIL: Yes Equal, round and reactive pupils present Resp: COMMON NORMALS: normal respiratory effort, No retractions, No use of accessory muscles and clear to auscultation bilaterally AUSCULTATION: clear to auscultation bilaterally Cardio: COMMON NORMALS: regular rate, regular rhythm, S1 normal heart sound present and S2 normal heart sound present RATE: regular rate RHYTHM: r egular rhythm HEART SOUNDS: S1 normal heart sound present and S2 normal heart sound present GI: COMMON NORMALS: Normal to inspection, nondistended, normoactive bowel sounds present and non-tender Extremity: COMMON NORMALS: no pedal edema Neuro: COMMON NORMALS: patient oriented x3, CN's II-XII intact bilaterally and moves all extremities Psych: COMMON NORMALS: mental status grossly normal Urinary Catheter Management: Shearer: Cath Placed During This Visit: yes Reason for Continuing Indwelling Catheter: Required Immobilization for Trauma or Surgery or Anesthesia Urinary Catheter Date of Insertion: 06/24/25 Urinary Catheter Time of Insertion: 01:40 Data 06/24/25 05:38 06/24/25 05:38 A&P Assessment and plan 1. Closed subcapital fracture of left femur: 2. Hypercholesteremia: 3. Sacroiliac inflammation: 4. Degenerative disc disease, lumbar: 5. Hypertension: Plan: Left hip subcapital fracture status post fall CT/CT bony pelvis [id number] IMPRESSION: 1. Minimally displaced subcapital left femoral fracture. 2. The remaining imaged osseous structures are intact. 3. Cholelithiasis without evidence of acute cholecystitis. 4. Soft tissue contusion of the left hip is noted. -Plan - N.p.o. midnight for surgery tomorrow - Pain control - Heparin for DVT prophylaxis Hypertension - Resume home blood pressure medications PDMP PDMP Reviewed: Not Reviewed Attestations 2 Medical Necessity Statement*: Patient requires hospitalization for hip fracture status post fall Diagnoses Closed subcapital fracture of left femur S72.012A Hypercholesteremia E78.00 Sacroiliac inflammation M46.1 Degenerative disc disease, lumbar M51.369 Hypertension I10
--- NOTE | 2025-06-24 16:18 | CTR_ITS ---
PROCEDURE INFORMATION: Exam: CT Head Without Contrast Exam date and time: 06/24/2025 5:06 PM Age: 85 years old Clinical indication: Pain; Headache not specified TECHNIQUE: Imaging protocol: Computed tomography of the head without contrast. Radiation optimization: All CT scans at this facility use at least one of these dose optimization techniques: automated exposure control; mA and/or kV adjustment per patient size (includes targeted exams where dose is matched to clinical indication); or iterative reconstruction. COMPARISON: No relevant prior studies available. RADIATION DOSE METRICS: Total DLP (mGy-cm): 1007.58 FINDINGS: Brain: Severe nonspecific white matter low attenuation which may be related to microvascular ischemic changes. Bilateral basal ganglia Lacunes. No acute confluent lobar ischemic infarct. No acute intracranial hemorrhage. Cerebral ventricles: The ventricles and sulci are prominent in size compatible with moderate atrophy. Paranasal sinuses: No fluid levels. Mastoid air cells: Visualized mastoid air cells are well aerated. Bones: No acute calvarial fracture. Soft tissues: Visualized soft tissues are unremarkable. CT/CT head wo con* [id number] IMPRESSION: No acute intracranial abnormality. If symptoms persist, consider further evaluation with MRI, if there are no contraindications to obtaining a MRI scan.
[2025-06-24] MEDS: metoclopramide 5 mg/mL SDV 2 mL IVP (18:13)
--- NOTE | 2025-06-24 20:12 | PC.NURSE ---
Per pharmacy nurse no administered TXA, ancef and toradol. Medications were ordered one time for surgery and patient has not yet had surgery.
[2025-06-24] MEDS: LORazepam 2 mg/mL INJ 1 mL 0.5 MG IVP (23:12)
[2025-06-25] VITALS (17 sets, daily range): BP systolic 101–177; BP diastolic 55–92; PULSE 62–101; RESP 14–20; TEMP 36.3–37.1; O2SAT 90–97
[2025-06-25] MEDS: metoclopramide 5 mg/mL SDV 2 mL IVP ×2 (05:14→20:40)
[2025-06-25] MEDS: morphine 4 mg/mL SDV 1 mL IVP (05:14)
[2025-06-25 05:53] LABS: Hematocrit 33.8 % (36-47); Hemoglobin 11.10 g/dL (11.27-16.99); Mean Corpuscular HGB Conc 32.8 g/dL (30-55); Mean Corpuscular Hemoglobin 27.6 pg (27-33); Mean Corpuscular Volume 84.1 fl (85-98); Nucleated Red Blood Cells % 0 %; Platelet Count 198 10^3/cmm (157-399); Red Blood Count 4.02 10^6/uL (3.85-5.65); White Blood Count 9.63 10^3/uL (3.29-11.43)
[2025-06-25 06:06] LABS: Alanine Aminotransferase 9 U/L (0-33); Albumin Level 3.6 g/dL (3.5-5.2); Alkaline Phosphatase 76 U/L (35-105); Anion Gap 12.1 (5-19); Aspartate Amino Transferase 20 U/L (0-32); Blood Urea Nitrogen 7 mg/dL (8-23); Calcium 9.0 mg/dL (8.5-10.5); Carbon Dioxide 23 mmol/L (22-29); Chloride 102 mmol/L (98-107); Creatinine Clr Calc Pharmacy 47.7414; Globulin 4.3 g/dL (1.3-4.6); Glucose 118 mg/dL (65-115); Osmolality Calculated 277 mOsm/kg (285-295); Potassium 3.1 mmol/L (3.5-5.1); Sodium 134 mmol/L (136-145); Total Protein 7.9 g/dL (6.6-8.7)
--- NOTE | 2025-06-25 06:22 | PC.NURSE ---
Nurse did not administer 0500 medications due to surgery this morning.
[2025-06-25] MEDS: ondansetron 2 mg/ML SDV 2 mL 4 MG IVP (07:47)
--- NOTE | 2025-06-25 08:42 | W.PM.OPSUD ---
Surgery/Procedure H&P Update DATE OF PROCEDURE: June 25, 2025 DATE H&P PERFORMED: 06/24/25 H&P UPDATE INFORMATION: I have reviewed H&P completed within last 30 days, I have examined patient prior to procedure and No changes to prior documentation PREOP DIAGNOSIS: Left hip femoral neck fracture PRIMARY INDICATION FOR PROCEDURE: Left hip femoral neck fracture PLANNED PROCEDURE: Operation Date: 06/25/25 09:00 Proposed Procedures p Hemiarthroplasty Hip(Left) - Ran Roberts DO
[2025-06-25] MEDS: ceFAZolin 2,000 mg SDV 2000 MG IVP (09:09)
[2025-06-25] MEDS: tranexamic acid 1,000 MG/100 ML PREMIX 600 MG IV ×2 (09:10→17:09)
--- NOTE | 2025-06-25 11:03 | XRR_ITS ---
PROCEDURE INFORMATION: Exam: XR Left Hip Exam date and time: 06/25/2025 11:13 AM Age: 85 years old Clinical indication: Screening exam; Prior surgery; Surgery date: Post-operative (0-2 days); Surgery type: Lt hip hemiarthroplasty; Additional info: Post op lt hemiarthroplasty. TECHNIQUE: Imaging protocol: Radiologic exam of the left hip. Views: 2 or 3 views hip with pelvis when performed. COMPARISON: CT bony pelvis [id number] 06/23/2025 11:52 PM FINDINGS: Bones/joints: Left bipolar hemiarthroplasty in anatomic alignment. No fracture. Soft tissues: Small amounts of soft tissue gas are present. XR/XR hip LT 2-3V wo/w pel* [id number] IMPRESSION: Postoperative changes as described.
--- NOTE | 2025-06-25 11:37 | ANE.PACU2 ---
Inpatient post-anesthesia follow up: Airway intact: Yes Vital signs: Temperature 98.0 F Pulse Rate 100 Respiratory Rate 17 Blood Pressure 141/87 Pulse Oximetry 91 Oxygen Delivery Me thod Room Air Oxygen Flow Rate 2 Fraction of Inspir ed Oxygen Hydration adequate: Yes Nausea and vomiting: No Pain level: 1 Mental status: Baseline
--- NOTE | 2025-06-25 11:40 | W.PM.BPON ---
Date of Procedure: 06/25/2025 Surgeon: Ran Roberts DO Cooling System Operator(s): Jack Roberts PA-C Procedure(s) performed: Left hip hemiarthroplasty (posterior approach?cemented) Findings of the procedure(s): Patient underwent procedure as planned without issues or complications patient did have thin cortices and as result intraoperatively I elected to undergo cementation for the left hip hemiarthroplasty she underwent this without any issues or complications taken recovery in stable condition. Estimated blood loss: 75 mL Specimen(s) removed: Femoral head removed Post-operative diagnosis: Left hip displaced femoral neck
--- NOTE | 2025-06-25 11:47 | P.OP_ITS ---
Operative Report Date of procedure: June 25, 2025 Surgeon: Ran Roberts DO Carpet Measurer: Jack Roberts PA-C: PA was necessary for assistance in this case with leg positioning assistance with hip reductions, retraction and protection of neurovascular structures as well as assistance in implantation, assistance and cementation and assistance in wound closure and dressing application. Procedure: Preoperative diagnosis: Left hip displaced femoral neck fracture post-op?diagnosis: Same Procedure done: Left?hip?hemiarthroplasty, (cemented?posterior approach) Implants: Shoaib Accolade C 132 degree femoral stem size 4 Bipolar head 47 mm Femoral head -4 mm offset 9mm distal cement spacer Surgeon: Ran Roberts DO Estimated blood loss: 75 mL IV fluids: 1000 mL Urine output: 200 mL Complications: None Findings: See?operative report Condition: stable Disposition: floor Brief History: Patient was seen in the emergency department and subsequently admitted after f all.? Patient sustained a Left displaced femoral neck fracture.? Patient was subsequently admitted by the hospitalist team for medical management and preoperative optimization and the orthopedic surgery team was consulted for evaluation and treatment recommendations.? At that point time discussed with patient? treatment?options.? We talked about nonoperative versus?operative intervention talked about the risk benefits complication alternatives to surgical nonsurgical treatment?options.? Risks of surgery were discussed and she understands and agrees to proceed with procedure.? At this point time would recommend a Left?hip?hemiarthroplasty.? This will offer patient pain control as well as early weightbearing.? Patient was medically?optimized and cleared by the primary team she was then taken to the OR.? Patient as well as family understands risk benefits complication alternatives with surgical nonsurgical treatment?options.? At this point time elects to proceed with Left?hip?hemiarthroplasty.? All questions answered.? Patient understands agrees with current plan.? All questions answered. Procedure: Patient seen evaluated the preoperative holding area.? Consent was reviewed and signed with patient.? ?Pt was seen evaluated by the anesthesia department.? Once cleared for surgery patient patient was taken back to the?operative suite.? Patient was then transported onto the OR table.? pt underwent anesthesia per the anesthesia department.? Once appropriately anesthetized patient was then positioned in lateral decubitus position with the Left?hip?up.? Patient was placed on a pegboard appropriately secured to the bed all bony prominences well- padded.? Next the Left lower extremity was then prepped and draped in sterile orthopedic fashion.? Final timeout performed.? Patient received appropriate preoperative antibiotics. A standard posterolateral approach was then made over the lateral aspect of the?hip.? Sharp scalpel incision was made through skin and subcutaneous tissue I then utilized a Foster elevator to mobilize over the fascia.? The fascia was then split longitudinally with electrocautery.? Next a bursectomy was then performed.? I then placed Hohmann underneath the abductors.? The?hip?was placed under tension with internal rotation.? I then utilizing electrocautery performed a full-thickness release of the short external rotators and capsule in 1 full thick sleeve for lateral repair.? This was then taken down to the lesser trochanter.? Immediately on capsulotomy hematoma was noticed and displaced femoral neck fracture appreciated.? I then placed a Hohmann above and below the neck.? I then utilized an oscillating saw to freshen the cut this was a fingerbreadth above the lesser.? Once this was performed this access was removed with rongeur.? ?I then utilized a corkscrew to remove the head.? This was then subsequently sized and measured to be a 47 mm head size.? I then thoroughly irrigated the acetabulum.? A Hohmann was placed anteriorly and thorough inspection of the acetabulum no significant arthritic changes were noted.? I then utilized a rongeur and Bovie to remove the pulvinar.? Once this was performed I then subsequently took my trial 47 mm head and trialed this which had excellent fit and appropriate suction fit noted.? This was then subsequently removed. Once this was performed I irrigated the socket and then turned my attention to wards the femoral preparation.? I utilized Bovie and rongeur to remove the soft tissue off of the saddle.? Once this was done a box osteotome followed by a canal finder and? lateralizing rattail rasp was used to appropriately lateralized in the canal. During the broaching was clearly evident patient had very thin cortices and as a result at this time it was determined patient would be a excellent candidate for cement. Next I then subsequently broached to a size 4 Accolade C. Shoaib femoral stem which had appropriate fixation.? I was able to trial with this and this appeared to be appropriate length with ability to add to add or subtract length needed once cemented.? Once this was done I then removed the size 4 femoral stem and then subsequently proceeded with standard cementation technique.? Cement was mixed on the back table the final implant was?opened and appropriately measurement on distal cement plug to accommodate the cement mantle and femoral stem.? This was set and impacted in place to appropriate depth.? Next I utilized the cement brush thoroughly irrigated the canal and then dry the canal tampon.? Once cement was appropriately mixed and ready for cementation informed anesthesia and they?optimize patient's oxygenation cement was then impacted using cement gun and then was subsequently pressurized.?? The femoral stem size 5 was then impacted in place with appropriate anteversion and held into place and all excess cement was removed and allowed to cure once cured I then trialed a 47 head -4 mm neck length which at that point there was which had excellent leg lengths as well as appropriate shuck, and excellent stability in all planes of motion with no evidence of instability.? At this point this was determined to being my final femoral head size.? This was subsequently dislocated the trial head was then removed the final implant of bipolar head 47 mm with a -4 mm offset was then?opened.? The trunnion was then cleaned and dried and this was impacted in place with excellent fixation.? I then reduced the?hip?this had excellent stability and appropriate leg lengths.? The wound bed was then thoroughly irrigated.? I then utilizing #5 Ethibond suture performed my repair of the capsule and short external rotators through bone tunnels.? ?Wound bed was then thoroughly irrigated,1 gram vanco powder placed in wound bed.? IT band was closed with strata fix suture and the deep subcutaneous and subcutaneous layers were closed with 0 strata fix and 2-0 strata fix.? Skin was then closed reapproximated with areli.? Silverlon dressing applied.? Patient placed in abduction pillow posterior?hip?precautions.? pt? was awakened from anesthesia and taken to PACU in stable condition Disposition: Patient taken to PACU in stable condition will receive appropriate discharge directions as well as pain medication DVT prophylaxis postoperatively.? Patient? will return to the floor postoperatively.? Patient will be weightbearing as tolerated to the Left lower extremity.? Posterior?hip?precautions. Abduction pillow in place.? DVT prophylaxis, pain medication, postoperative antibiotics and TXA.? Patient will work with PT/OT and discharge services for discharge planning.? Patient understands agrees with current plan.? All questions answered.? ?patient will? see me in the office in 2 weeks.
--- NOTE | 2025-06-25 11:47 | PC.NURSE ---
1140 - accepted into room 266 with Joseph RN at side pt in no distress upon this nurse exiting room - BP 149/80 - pulse 72 - 02 2LNC 94% temp 97.5
--- NOTE | 2025-06-25 13:44 | P.PN_ITS ---
Subjective 2 Subjective: Patient was seen in postop recovery, she is alert to person, not to place, to time Vitals/I&O/Wt Last Vital Signs Temp 97.8 F 06/25/25 12:45 Pulse 86 06/25/25 12:45 Resp 18 06/25/25 12:45 BP 160/90 06/25/25 12:45 Pulse Ox 97 06/25/25 12:45 O2 Del Method Nasal Cannula 06/25/25 12:45 O2 Flow Rate 2 06/25/25 11:33 06/24/25 06/25/25 06/25/25 22:59 06:59 14:59 Intake Total 120 / 1001.25 1000 / 2000.25 150 / 150 Output Total 875 / 2225 875 / 875 Balance 120 / -348.75 125 / -223.75 -725 / -725 Weight last 48 hrs Weight 60.827 kg Weight 58.967 kg Weight 58.967 kg Physical Exam 2 Const: COMMON NORMALS: no acute distress ORIENTATION/CONSCIOUSNESS: Yes awake and Yes oriented to person; not oriented to place and not oriented to time Neck/C-Spine: COMMON NORMALS: no JVD Resp: COMMON NORMALS: normal respiratory effort, No retractions, No use of accessory muscles and clear to auscultation bilaterally AUSCULTATION: clear to auscultation bilaterally Cardio: COMMON NORMALS: no JVD, regular rate, regular rhythm, S1 normal heart sound present and S2 normal heart sound present RATE: regular rate RHYTHM: regular rhythm HEART SOUNDS: S1 normal heart sound present and S2 normal heart sound present GI: COMMON NORMALS: Normal to inspection, nondistended, normoactive bowel sounds present and non-tender Extremity: COMMON NORMALS: no pedal edema Neuro: SENSORIUM/ORIENTATION: Yes oriented to person, No oriented to place and No oriented to time Psych: COMMON NORMALS: mental status grossly normal Urinary Catheter Management: Shearer: Cath Placed During This Visit: yes Reason for Continuing Indwelling Catheter: Other Urinary Catheter Date of Insertion: 06/24/25 Urinary Catheter Time of Insertion: 01:40 Data 06/25/25 05:19 06/25/25 05:19 A&P Assessment and plan 1. Closed subcapital fracture of left femur: 2. Hypercholesteremia: 3. Sacroiliac inflammation: 4. Degenerative disc disease, lumbar: 5. Hypertension: Plan: Left hip subcapital fracture status post fall CT/CT bony pelvis 31625 IMPRESSION: 1. Minimally displaced subcapital left femoral fracture. 2. The remaining imaged osseous structures are intact. 3. Cholelithiasis without evidence of acute cholecystitis. 4. Soft tissue contusion of the left hip is noted. -Plan - Status post surgical intervention today - Pain control - Heparin for DVT prophylaxis Hypertension - Resume home blood pressure medications PDMP PDMP Reviewed: Not Reviewed Attestations 2 Medical Necessity Statement*: Patient requires hospitalization for left hip fracture Diagnoses Closed subcapital fracture of left femur S72.012A Hypercholesteremia E78.00 Sacroiliac inflammation M46.1 Degenerative disc disease, lumbar M51.369 Hypertension I10
[2025-06-25] MEDS: HYDROcodone-acetaminophen 5-325 mg Tablet 1 TAB PO ×2 (14:19→20:40)
[2025-06-25] MEDS: sennosides-docusate Tablet 2 TAB PO (17:09)
[2025-06-25] MEDS: ceFAZolin 2,000 MG in sodium chloride 0.9% (plus) 50 ML 100 MG IV (17:10)
[2025-06-25] MEDS: calcium carb-vit d 600mg/400unit 1 Tablet 1 EACH PO (17:10)
[2025-06-25] MEDS: chlorhexidine gluconate 0.12% Btl 473 mL 30 ML MUCOUS MEM (17:11)
[2025-06-25] MEDS: mupirocin oint 22 gm 1 APPLIC NASAL (17:12)
[2025-06-26] VITALS (9 sets, daily range): BP systolic 141–196; BP diastolic 69–87; PULSE 57–116; RESP 16–17; TEMP 36.3–37; O2SAT 91–96
[2025-06-26] MEDS: ceFAZolin 2,000 MG in sodium chloride 0.9% (plus) 50 ML 100 MG IV ×2 (00:15→09:24)
[2025-06-26] MEDS: chlorhexidine gluconate 0.12% Btl 473 mL 30 ML MUCOUS MEM ×4 (00:23→22:48)
--- NOTE | 2025-06-26 04:41 | PC.NURSE ---
Shearer not removed this am due to patient becoming dizzy and sob with pt yesterday. See pt notes
[2025-06-26] MEDS: metoclopramide 5 mg/mL SDV 2 mL IVP ×2 (04:45→23:21)
[2025-06-26] MEDS: HYDROcodone-acetaminophen 5-325 mg Tablet 1 TAB PO (04:45)
[2025-06-26] MEDS: calcium carb-vit d 600mg/400unit 1 Tablet 1 EACH PO ×2 (04:46→17:08)
[2025-06-26] MEDS: sennosides-docusate Tablet 2 TAB PO ×2 (04:46→17:09)
[2025-06-26] MEDS: multivitamin therapeutic Tablet 1 TAB PO (04:46)
[2025-06-26] MEDS: mupirocin oint 22 gm 1 APPLIC NASAL (04:47)
[2025-06-26 05:08] LABS: Hematocrit 31.2 % (36-47); Hemoglobin 10.40 g/dL (11.27-16.99); Mean Corpuscular HGB Conc 33.3 g/dL (30-55); Mean Corpuscular Hemoglobin 28.3 pg (27-33); Mean Corpuscular Volume 84.8 fl (85-98); Nucleated Red Blood Cells % 0 %; Platelet Count 190 10^3/cmm (157-399); Red Blood Count 3.68 10^6/uL (3.85-5.65); White Blood Count 8.13 10^3/uL (3.29-11.43)
[2025-06-26 05:28] LABS: Anion Gap 12.8 (5-19); Blood Urea Nitrogen 8 mg/dL (8-23); Calcium 8.8 mg/dL (8.5-10.5); Carbon Dioxide 24 mmol/L (22-29); Chloride 101 mmol/L (98-107); Creatinine Clr Calc Pharmacy 47.7414; Glucose 99 mg/dL (65-115); Osmolality Calculated 278 mOsm/kg (285-295); Sodium 135 mmol/L (136-145)
[2025-06-26 05:48] LABS: Potassium 2.8 mmol/L (3.5-5.1)
[2025-06-26] MEDS: lidocaine 1% 5 ML in potassium chloride premix 100 ML 52.5 ML IV ×3 (06:20→13:44)
--- NOTE | 2025-06-26 08:15 | USR_ITS ---
PROCEDURE INFORMATION: Exam: US Soft Tissue Head and Neck, Thyroid Exam date and time: 06/26/2025 8:19 AM Age: 85 years old Clinical indication: Screening exam; Other; Cervical lymph nodes, salivary glands, thyroid TECHNIQUE: Imaging protocol: Real-time ultrasound scan of the neck with image documentation. Exam focused on the thyroid. COMPARISON: US thyroid [id number] 06/26/2025 8:19 AM FINDINGS: Right thyroid lobe: The right thyroid lobe is mildly enlarged measuring 5.1 x 3.3 x 2.2 cm (normal 4-6 x < 2 x < 2 cm). Location: Right mid lobe. Location: Right mid lobe Left thyroid lobe: The left thyroid lobe is mildly enlarged measuring 5.0 x 2.6 x 1.9 cm (normal 4-6 x < 2 x < 2 cm). Location: Left mid lobe. Location: Left mid lobe Isthmus: The isthmus is normal in size measuring 0.3 cm (normal < 0.3 cm). Salivary glands: The submandibular glands are unremarkable. Lymph nodes: No cervical adenopathy. Other findings: Nodule 1: Location: Right mid lobe Size: 2.3 x 2.8 x 2.7 cm Composition: Solid/almost solid (2 points) Echogenicity: Hypoechoic (2 pts) Shape: Wider than tall (0 points) Margin: Smooth (0 points) Echogenic foci: None (0 points) Total points: 4 Nodule 2: Location: Right mid lobe Size: 1.0 x 0.6 x 0.6 cm Composition: Solid/almost solid (2 points) Echogenicity: Hypoechoic (2 pts) Shape: Wider than tall (0 points) Margin: Smooth (0 points) Echogenic foci: None (0 points) Total points: 4 Nodule 3: Location: Left mid lobe Size: 2.9 x 2.1 x 1.3 cm Composition: Solid/almost solid (2 points) Echogenicity: Isoechoic (1 point) Shape: Wider than tall (0 points) Margin: Smooth (0 points) Echogenic foci: Macro calcification (1 point) Total points: 4 Nodule 4: Location: Left mid lobe Size: 0.6 x 0.4 x 0.2 cm Composition: Solid/almost solid (2 points) Echogenicity: Hypoechoic (2 pts) Shape: Wider than tall (0 points) Margin: Smooth (0 points) Echogenic foci: None (0 points) Total points: 4 US/US thyroid [id number] IMPRESSION: 1. 2.8 cm solid nodule, right mid thyroid lobe. FNA is recommended. TI-RADS 4 - moderately suspicious. FNA if greater than or equal to 1.5 cm. Ultrasound follow-up at 1, 2, 3 and 5 years, if 1.0 - 1.4 cm. Less than 1.0 cm, no follow-up recommended. 2. 1.0 cm solid hypoechoic nodule, right mid thyroid lobe. Ultrasound follow-up in 1 year is recommended. TI-RADS 4 - moderately suspicious. FNA if greater than or equal to 1.5 cm. Ultrasound follow-up at 1, 2, 3 and 5 years, if 1.0 - 1.4 cm. Less than 1.0 cm, no follow-up recommended. 3. 2.9 cm solid nodule, left mid thyroid lobe. FNA is recommended.TI-RADS 4 - moderately suspicious. FNA if greater than or equal to 1.5 cm. Ultrasound follow-up at 1, 2, 3 and 5 years, if 1.0 - 1.4 cm. Less than 1.0 cm, no follow-up recommended. 4. 0.6 cm solid nodule, left mid thyroid lobe. Ultrasound follow-up in 1 year is recommended.TI-RADS 4 - moderately suspicious. FNA if greater than or equal to 1.5 cm. Ultrasound follow-up at 1, 2, 3 and 5 years, if 1.0 - 1.4 cm. Less than 1.0 cm, no follow-up recommended. 5. No cervical adenopathy. 6. Unremarkable examination of the submandibular glands.
--- NOTE | 2025-06-26 09:40 | CTR_ITS ---
PROCEDURE INFORMATION: Exam: CT Head Without Contrast Exam date and time: 06/26/2025 11:10 AM Age: 85 years old Clinical indication: Altered mental status/memory loss and speech disturbance; Additional info: AMS, slurring TECHNIQUE: Imaging protocol: Computed tomography of the head without contrast. Radiation optimization: All CT scans at this facility use at least one of these dose optimization techniques: automated exposure control; mA and/or kV adjustment per patient size (includes targeted exams where dose is matched to clinical indication); or iterative reconstruction. COMPARISON: CT head wo con* [id number] 06/24/2025 5:06 PM RADIATION DOSE METRICS: Total DLP (mGy-cm): 1151.4 FINDINGS: Brain: Cerebellar tonsils are in normal anatomic position. Stable periventricular white matter small vessel ischemic changes. There is stable mild, diffuse cerebral atrophy. There is no intracranial bleed. Cerebral ventricles: There is stable ex vacuo dilation of the cerebral ventricles. Pituitary gland and sella: Sella is unremarkable. Paranasal sinuses: Paranasal sinuses are unremarkable. Mastoid air cells: Mastoid air cells are unremarkable. Orbital cavities: Orbits are unremarkable. Nasal cavity: The nasal cavity is unremarkable. Bones: Unremarkable. No acute fracture. Soft tissues: The soft tissues are unremarkable. Vasculature: Unremarkable. CT/CT head wo con* [id number] IMPRESSION: No acute intracranial pathology.
--- NOTE | 2025-06-26 09:40 | CTR_ITS ---
PROCEDURE INFORMATION: Exam: CTA Head With Contrast, Arteriography Exam date and time: 06/26/2025 11:10 AM Age: 85 years old Clinical indication: Speech disturbance; Slurred speech; Additional info: Slurring TECHNIQUE: Imaging protocol: Computed tomographic angiography of the head with contrast. Exam focused on the arteries. 3D rendering (Not supervised by radiologist): MIP and/or 3D reconstructed images were created by the technologist. Radiation optimization: All CT scans at this facility use at least one of these dose optimization techniques: automated exposure control; mA and/or kV adjustment per patient size (includes targeted exams where dose is matched to clinical indication); or iterative reconstruction. Contrast material: OMNI 350; Contrast volume: 100 ml; Contrast route: INTRAVENOUS (IV); COMPARISON: CT head wo con* [id number] 06/24/2025 5:06 PM RADIATION DOSE METRICS: Total DLP (mGy-cm): 350.6 FINDINGS: ANTERIOR CIRCULATION: Right internal carotid artery: Intracranial segment is patent with no significant stenosis. No aneurysm. Right middle cerebral artery: No occlusion or significant stenosis. No aneurysm. Right anterior cerebral artery: No occlusion or significant stenosis. No aneurysm. Left internal carotid artery: Intracranial segment is patent with no significant stenosis. No aneurysm. Left middle cerebral artery: No occlusion or significant stenosis. No aneurysm. Left anterior cerebral artery: No occlusion or significant stenosis. No aneurysm. POSTERIOR CIRCULATION: Right vertebral artery: No occlusion or significant stenosis. No aneurysm. Left vertebral artery: No occlusion or significant stenosis. No aneurysm. Basilar artery: No occlusion or significant stenosis. No aneurysm. Right posterior cerebral artery: No occlusion or significant stenosis. No aneurysm. Left posterior cerebral artery: No occlusion or significant stenosis. No aneurysm. Veins: Venous sinuses: Unremarkable. Brain: No definite mass, mass effect, or midline shift. Cerebral ventricles: No ventriculomegaly. Bones/joints: Unremarkable. No acute fracture. Soft tissues: Unremarkable. PROCEDURE INFORMATION: Exam: CTA Neck With Contrast Exam date and time: 06/26/2025 11:10 AM Age: 85 years old Clinical indication: Speech disturbance; Slurred speech; Additional info: Slurring TECHNIQUE: Imaging protocol: Computed tomographic angiography of the neck with contrast. Exam focused on the cervical segments of the vasculature. 3D rendering (Not supervised by radiologist): MIP and/or 3D reconstructed images were created by the technologist. Radiation optimization: All CT scans at this facility use at least one of these dose optimization techniques: automated exposure control; mA and/or kV adjustment per patient size (includes targeted exams where dose is matched to clinical indication); or iterative reconstruction. Contrast material: OMNI 350; Contrast volume: 100 ml; Contrast route: INTRAVENOUS (IV); COMPARISON: [place] thyroid [id number] 06/26/2025 8:19 AM RADIATION DOSE METRICS: Total DLP (mGy-cm): 350.6 FINDINGS: Right common carotid artery: No stenosis. No dissection or occlusion. Right internal carotid artery: No stenosis of the extracranial segment. No dissection or occlusion. Right external carotid artery: No occlusion or stenosis of the origin. Left common carotid artery: No stenosis. No dissection or occlusion. Left internal carotid artery: No stenosis of the extracranial segment. No dissection or occlusion. Left external carotid artery: No occlusion or stenosis of the origin. Right vertebral artery: No stenosis. No dissection or occlusion. Left vertebral artery: No stenosis. No dissection or occlusion. Nasal cavity: The nasal cavity is unremarkable. Oral cavity: Oral cavity is unremarkable. Pharynx: The parapharyngeal fat is symmetric and normal in appearance. The pharynx is unremarkable. Larynx: The larynx is unremarkable. Salivary glands: The parotid glands are symmetric and unremarkable in appearance. The submandibular glands are symmetric and unremarkable in appearance. Thyroid: 29 mm right thyroid nodule. Please see the report of the thyroid ultrasound of today for further details. 1.5 cm left thyroid nodule. Please see the report of the thyroid ultrasound of today for further details. Lymph nodes: The visible mediastinum demonstrates multiple enlarged lymph nodes measuring up to 11 mm in short axis, right paratracheal space, image 6/60. Soft tissues: There is no prevertebral soft tissue swelling. Bones/joints: There is advanced cervical spondylosis. Lungs: The visible portions of the lungs are unremarkable. CT/CT angio headneck* [id number] IMPRESSION: No large vessel stenosis or occlusion. IMPRESSION: No stenosis or occlusion. The visible mediastinum demonstrates adenopathy with lymph nodes measuring up to 11 mm in short axis. Correlation with follow-up CT chest is recommended to fully evaluate the chest. COMMENTS: Consistent with the [employer]'s Incidental Findings Committee white paper (J Am Abhishek Radiol 2015): In patients aged 35 years and older with an incidental thyroid nodule equal to or greater than 1.[address], MRI or extrathyroidal US, further evaluation with dedicated thyroid US is recommended for patients with normal life expectancy and without comorbidities. For smaller nodules without suspicious features, no further evaluation or follow up is recommended. REFERENCES: NASCET CRITERIA. The degree of stenosis in the cervical segment of the internal carotid artery is based on NASCET criteria. Normal is no stenosis. Mild is less than 50% stenosis. Moderate is 50-69% stenosis. Severe is 70% to 99% stenosis. Total occlusion is no detectable patent lumen.
--- NOTE | 2025-06-26 09:41 | XRR_ITS ---
PROCEDURE INFORMATION: Exam: XR Chest Exam date and time: 06/26/2025 10:11 AM Age: 85 years old Clinical indication: Shortness of breath; Additional info: SOB TECHNIQUE: Imaging protocol: Radiologic exam of the chest. Views: 1 view. COMPARISON: CR (CHEST, ) 06/23/2025 10:37 PM FINDINGS: Lungs: Unremarkable. No consolidation. Pleural spaces: Unremarkable. No gross pleural effusion. No pneumothorax. Heart/Mediastinum: Cardiac silhouette is enlarged. Bones/joints: Unremarkable. XR/XR chest 1V portable [id number] IMPRESSION: No acute cardiopulmonary process.
[2025-06-26] MEDS: iohexol 350 mg/mL 500 mL Btl (per mL) IV (10:17)
--- NOTE | 2025-06-26 12:54 | P.PN_ITS ---
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, but recently worsened, during my conversation she does have some slurring of her words, but it is primarily because she is having a dry mouth, I cannot discern any facial droop, no focal weakness, no blurry vision, no focal weakness 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, NIH stroke scale 0 discussed with family will monitor, recommended persistent hydrate him, can try some chewing gum, he reports a history of xerostomia in the past, no salivary gland issues, discussed doing ultrasound of her neck - Patient was examined this morning, she is alert to person, to place, not to time she follows commands during my conversation she does have episodes of confusion she forgets that she recently had hip surgery, she recognizes her confusion, during my conversation she continues to have issues with xerostomia, she does have slurring of her words which is about similar compared to yesterday no facial droop, no other focal logic deficits, good electrical linesworker strength bilateral upper extremity, full bilateral strength lower extremities, no paresthesias, no blurry vision, no receptive aphasia, no productive aphasia, NIH stroke scale 0, - Discussed with family that I think mundo t her slurring of words is likely due to her dry mouth, but with her confusion will repeat head CT and CTA to rule out CVA, UA, chest x-ray to rule out infection given her altered mental status Vitals/I&O/Wt Last Vital Signs Temp 98.0 F 06/26/25 12:00 Pulse 100 06/26/25 12:00 Resp 17 06/26/25 12:00 BP 141/87 06/26/25 12:00 Pulse Ox 91 06/26/25 12:00 O2 Del Method Room Air 06/26/25 12:00 O2 Flow Rate 2 06/25/25 11:33 06/25/25 06/26/25 06/26/25 22:59 05:59 14:59 Intake Total 1270 / 1660 290 / 1950 1462.375 / 1462.375 Output Total 1800 / 2675 Balance 1270 / 785 -1510 / -725 1462.375 / 1462.375 Weight last 48 hrs Weight 60.781 kg Weight 60.827 kg Physical Exam 2 Const: COMMON NORMALS: no acute distress ORIENTATION/CONSCIOUSNESS: Yes awake, Yes oriented to person and Yes oriented to place; not oriented to time Eye: COMMON NORMALS: Equal, round and reactive pupils present and EOMs intact bilaterally PUPIL: Yes Equal, round and reactive pupils present Resp: COMMON NORMALS: normal respiratory effort, No retractions, No use of accessory muscles and clear to auscultation bilaterally AUSCULTATION: clear to auscultation bilaterally Cardio: COMMON NORMALS: regular rate, regular rhythm, S1 normal heart sound present and S2 normal heart sound present RATE: regular rate RHYTHM: r egular rhythm HEART SOUNDS: S1 normal heart sound present and S2 normal heart sound present GI: COMMON NORMALS: Normal to inspection, nondistended, normoactive bowel sounds present and non-tender Extremity: COMMON NORMALS: no calf tenderness and no pedal edema Neuro: COMMON NORMALS: CN's II-XII intact bilaterally, moves all extremities, no focal motor deficits and no sensory deficits noted SENSORIUM/ORIENTATION: Yes oriented to person, Yes oriented to place and No oriented to time OTHER: cerebellar signs (finger to nose) negative Psych: COMMON NORMALS: mental status grossly normal Urinary Catheter Management: Shearer: Cath Placed During This Visit: yes Reason for Continuing Indwelling Catheter: Other Urinary Catheter Date of Insertion: 06/24/25 Urinary Catheter Time of Insertion: 01:40 Data 06/26/25 04:43 06/26/25 04:43 A&P Assessment and plan 1. Xerostomia: 2. Hypertension: 3. Hypercholesteremia: 4. Closed subcapital fracture of left femur: 5. AMS (altered mental status): Plan: Left hip subcapital fracture status post fall CT/CT bony pelvis 96320 IMPRESSION: 1. Minimally displaced subcapital left femoral fracture. 2. The remaining imaged osseous structures are intact. 3. Cholelithiasis without evidence of acute cholecystitis. 4. Soft tissue contusion of the left hip is noted. -Plan - Status post surgical intervention today - Pain control - Heparin for DVT prophylaxis Hypertension - Resume home blood pressure medications Altered mental status Initial head CT CT/CT head wo con* [id number] IMPRESSION: No acute intracranial pathology. -Repeat UA -Chest x-ray -Could be component of anesthetic, narcotics -Stop hydrocodone and switch to tramadol -Neurochecks, no stroke scale -CT head -CTA head and neck Xerostomia -Thyroid ultrasound as below -Could be associated with narcotics, anesthetic -Will have patient follow-up with ENT -Can use chewing gum -Can use oral artificial saliva every 2 hours -With associated slurring of her words Slurring her words -No other focal neurologic deficits, no receptive aphasia, no productive aphasia, no focal weakness, no paresthesias, no facial droop, no visual deficits -Has a chronic history of xerostomia recently worsened, send patient -CT angiogram of the head -CT head -NIH stroke scale -Aspiration precautions Thyroid nodules - Ultrasound thyroid Full code Lovenox DVT prophylaxis PDMP PDMP Reviewed: Not Reviewed Attestations 2 Medical Necessity Statement*: Patient requires hospitalization left hip fracture, altered mental status Diagnoses Xerostomia K11.7 Hypertension I10 Hypercholesteremia E78.00 Closed subcapital fracture of left femur S72.012A AMS (altered mental status) R41.82
[2025-06-26] MEDS: saliva stimulant spray 30 mL Btl 1 SPRAY MUCOUS MEM ×4 (13:45→22:47)
[2025-06-26 14:04] LABS: Anion Gap 13.2 (5-19); Blood Urea Nitrogen 14 mg/dL (8-23); Calcium 9.2 mg/dL (8.5-10.5); Carbon Dioxide 25 mmol/L (22-29); Chloride 97 mmol/L (98-107); Creatinine Clr Calc Pharmacy 47.7268; Glucose 135 mg/dL (65-115); Osmolality Calculated 277 mOsm/kg (285-295); Potassium 3.2 mmol/L (3.5-5.1); Sodium 132 mmol/L (136-145)
--- NOTE | 2025-06-26 14:08 | PM.PN ---
Subjective Subjective: Patient seen and examined postoperative day 1 progressing appropriately pain controlled medications Vitals/I&O/Wt Last Vital Signs Temp 98.0 F 06/26/25 12:00 Pulse 100 06/26/25 12:00 Resp 17 06/26/25 12:00 BP 141/87 06/26/25 12:00 Pulse Ox 91 06/26/25 12:00 O2 Del Method Room Air 06/26/25 12:00 O2 Flow Rate 2 06/25/25 11:33 06/25/25 06/26/25 06/26/25 22:59 05:59 14:59 Intake Total 1270 / 1660 290 / 1950 1927.375 / 1927.375 Output Total 1800 / 2675 300 / 300 Balance 1270 / 785 -1510 / -725 1627.375 / 1627.375 Weight last 48 hrs Weight 134 lb Weight 134 lb 1.6 oz Physical Exam Narrative: Left hip examination: Dressing on in place, clean dry and intact. No evidence of saturation. Patient has normal postoperative swelling and tenderness to palpation to the hip. Compartments are soft compressible,'s calf soft and nontender. Sensations intact to light touch distally. Distal pulses are palpable. Patient is able to wiggle toes as well as plantarflex and dorsiflex ankle. Patient has negative logroll examination Urinary Catheter Management: Shearer: Cath Placed During This Visit: yes Reason for Continuing Indwelling Catheter: Other Urinary Catheter Date of Insertion: 06/24/25 Urinary Catheter Time of Insertion: 01:40 Data 06/27/25 03:36 06/27/25 03:36 Other Labs: AM labs 06/26/2025 WBC 8.13 hemoglobin 10.4, sodium 132, creatinine 0.6 Xray Ortho: Radiologist's impression: Patient: Noris Oliveros Unit #: [id number] : 1940 Age/Sex: 85 / F ADM Date: 06/24/25 Loc: [facility] Room/Bed: [facility] Attending Dr: Cuong Nielsen MD Ordering Provider/Ordering MD: Ran Roberts Date of Service: 06/25/25 Procedure(s): XR hip LT 2-3V wo/w pel* [id number] Accession Number(s): [id number] Report Number: [id number] PROCEDURE INFORMATION: Exam: XR Left Hip Exam date and time: 06/25/2025 11:13 AM Age: 85 years old Clinical indication: Screening exam; Prior surgery; Surgery date: Post-operative (0-2 days); Surgery type: Lt hip hemiarthroplasty; Additional info: Post op lt hemiarthroplasty. TECHNIQUE: Imaging protocol: Radiologic exam of the left hip. Views: 2 or 3 views hip with pelvis when performed. COMPARISON: CT bony pelvis [id number] 06/23/2025 11:52 PM FINDINGS: Bones/joints: Left bipolar hemiarthroplasty in anatomic alignment. No fracture. Soft tissues: Small amounts of soft tissue gas are present. XR/XR hip LT 2-3V wo/w pel* [id number] IMPRESSION: Postoperative changes as described. A&P Assessment and plan 1. Closed subcapital fracture of left femur: Plan: Weightbearing as tolerated left lower extremity Complete?postoperative antibiotics Complete?postoperative TXA X-rays reviewed, reviewed?stable left hip hemiarthroplasty Resume regular diet Pain control PT/OT DVT prophylaxis Posterior hip precautions Labs reviewed Ice and elevate as needed for pain and swelling Antinausea medication as needed Orthopedics will continue to follow Internal medicine otherwise primary Patient daughter understand agree with current plan. All questions answered. PDMP PDMP Reviewed: Not Reviewed Attestations Medical Necessity Statement*: Ongoing care status post left hip hemiarthroplasty Coding Level of Care Code Acute Code for Chg Fwd Diagnoses Closed subcapital fracture of left femur S72.012A Time Spent (min) 10
[2025-06-26] MEDS: MELATONIN 3 MG TABLET 6 MG PO (21:18)
--- NOTE | 2025-06-26 22:48 | PC.NURSE ---
Chlorhexadine gluconate mouth wash, lovenox, and saliva stimulant were administered to patient per orders, medications were scanned but did not show up on oct.
[2025-06-26 22:49] LABS: Glucose Urine UA Negative (Normal); Nitrate Urine Negative (Negative)
[2025-06-26 22:53] LABS: Add Urine Microscopic? YES
[2025-06-26 22:54] LABS: Specific Gravity, Urine 1.042 (1.005-1.030)
[2025-06-27] VITALS (7 sets, daily range): BP systolic 100–173; BP diastolic 65–84; PULSE 95–112; RESP 16–20; TEMP 36.5–36.8; O2SAT 92–95; BMI 21.6
[2025-06-27 03:45] LABS: Hematocrit 32.7 % (36-47); Hemoglobin 10.80 g/dL (11.27-16.99); Mean Corpuscular HGB Conc 33.0 g/dL (30-55); Mean Corpuscular Hemoglobin 27.6 pg (27-33); Mean Corpuscular Volume 83.6 fl (85-98); Nucleated Red Blood Cells % 0 %; Platelet Count 221 10^3/cmm (157-399); Red Blood Count 3.91 10^6/uL (3.85-5.65); White Blood Count 9.72 10^3/uL (3.29-11.43)
[2025-06-27 04:06] LABS: Anion Gap 14.0 (5-19); Blood Urea Nitrogen 11 mg/dL (8-23); Calcium 9.2 mg/dL (8.5-10.5); Carbon Dioxide 25 mmol/L (22-29); Chloride 97 mmol/L (98-107); Creatinine Clr Calc Pharmacy 47.7268; Glucose 132 mg/dL (65-115); Osmolality Calculated 277 mOsm/kg (285-295); Potassium 3.0 mmol/L (3.5-5.1); Sodium 133 mmol/L (136-145)
[2025-06-27] MEDS: multivitamin therapeutic Tablet 1 TAB PO (06:07)
[2025-06-27] MEDS: sennosides-docusate Tablet 2 TAB PO (06:07)
[2025-06-27] MEDS: calcium carb-vit d 600mg/400unit 1 Tablet 1 EACH PO (06:08)
[2025-06-27] MEDS: mupirocin oint 22 gm 1 APPLIC NASAL (06:08)
[2025-06-27] MEDS: chlorhexidine gluconate 0.12% Btl 473 mL 30 ML MUCOUS MEM ×2 (06:08→11:09)
[2025-06-27] MEDS: saliva stimulant spray 30 mL Btl 1 SPRAY MUCOUS MEM ×5 (06:09→14:25)
[2025-06-27] MEDS: metoclopramide 5 mg/mL SDV 2 mL IVP (07:31)
--- NOTE | 2025-06-27 09:23 | PC.CHAP ---
Pastoral Care Encounter/Spiritual Assessment Type of Contact [] Declined division sales manager visit [] Patient/Family/Request visit [] Outpatient visit [] Follow-up visit [] Physician referral [] Code/Alert [x] Routine visit [] Staff referral [] Actively dying [] Patient sleeping [] Family support [] [] Out of room [] Palliative care [] [x] Receiving care in room [] Pre-surgical visit [] Trauma [] Long length of stay [] ICU visit [] Other: Relational/Emotional Strength [] Patient feels connected with others/family/visitors/staff [] Distress [] Loneliness/isolation [] Abandonment Spirituality of Patient [] Person of Sakshi [] Attends Shinto of their Sakshi [] Believes in Prayer [] Reads Bible or Judaism materials [] There are Spiritual issues to be addressed Phlebotomy Manager Interventions [x] Prayer [] Active listening [] Non-anxious presence [] Spiritual/emotional support [] Crisis/trauma care [] Spiritual counseling [] Bereavement support [] Provided bereavement packet [] Provided Bible/devotional materials [] Provided toy/stuffed animal, coloring book to patient or family member [] Provided Communion [] Anointing/Allison [] Salvation [] Completed spiritual assessment [] Other: Impact on Illness or Injury [] Angry [] Fearful [] Anxious [] Often cries [] Exhaustion [] Unable to work [] Unable to attend restorationist [] Unable to walk/stand [] Unable to read [] Unable to drive [] Unable to eat/drink [] Unable to sleep [] Unable to be with family [] Patient intubated [] Other: Summary Time spent with patient
[2025-06-27] MEDS: potassium chloride oral liq 20 mEq/15 mL UDC 40 MEQ PO (11:04)
[2025-06-27] MEDS: Fleet Enema 133 mL Enema PR (11:05)
--- NOTE | 2025-06-27 11:30 | P.PN_ITS ---
Subjective 2 Subjective: Patient postop day 2 left hip hemiarthroplasty progressing well with therapy plan discharge to today. Vitals/I&O/Wt Last Vital Signs Temp 98.0 F 06/27/25 11:00 Pulse 105 H 06/27/25 11:00 Resp 17 06/27/25 11:00 BP 136/84 06/27/25 11:00 Pulse Ox 94 06/27/25 11:00 O2 Del Method Room Air 06/27/25 11:00 O2 Flow Rate 2 06/25/25 11:33 06/26/25 06/27/25 06/27/25 22:59 06:59 14:59 Intake Total 515 / 2442.375 240 / 240 Output Total 250 / 550 50 / 50 Balance 265 / 1892.375 190 / 190 Weight last 48 hrs Weight 134 lb Weight 134 lb Physical Exam 2 Narrative: Left hip examination: Dressing on in place, clean dry and intact. No evidence of saturation. Patient has normal postoperative swelling and tenderness to palpation to the hip. Compartments are soft compressible,'s calf soft and nontender. Sensations intact to light touch distally. Distal pulses are palpable. Patient is able to wiggle toes as well as plantarflex and dorsiflex ankle. Patient has negative logroll examination Urinary Catheter Management: Shearer: Cath Placed During This Visit: yes Reason for Continuing Indwelling Catheter: Other Urinary Catheter Date of Insertion: 06/24/25 Urinary Catheter Time of Insertion: 01:40 Data 06/27/25 03:36 06/27/25 03:36 A&P Assessment and plan 1. Closed subcapital fracture of left femur: Plan: Patient postop day 2 left hip hemiarthroplasty weightbearing as tolerated left lower extremity X-rays reviewed, reviewed?stable left hip hemiarthroplasty Resume regular diet Pain control PT/OT DVT prophylaxis Posterior hip precautions Labs reviewed Ice and elevate as needed for pain and swelling Antinausea medication as needed Patient stable for discharge from orthopedic standpoint orthopedic surgery team will sign off patient at this time follow peripherally presenting question pertaining patient's care for for to contact orthopedics on-call. Patient follow-up in the orthopedic office in 2 weeks postoperatively. Internal medicine as primary Patient and daughter understand agree with current plan. All questions answered. PDMP PDMP Reviewed: Not Reviewed Attestations 2 Medical Necessity Statement*: Ongoing care status post left hip hemiarthroplasty Coding Level of Care Code Acute Code for Chg Fwd Diagnoses Closed subcapital fracture of left femur S72.012A Time Spent (min) 10
--- NOTE | 2025-06-27 12:57 | P.DS_ITS ---
Discharge Providers Date of Admission: 06/24/25 03:07 Date of Discharge: June 27, 2025 Attending Provider at Admission: Indira Bower MD Attending Provider at Discharge: Cuong Nielsen MD Primary Care Provider: Abeba Han MD Diagnoses at Discharge Discharge Diagnosis 1. Xerostomia: 2. Essential hypertension: 3. Hypercholesteremia: 4. Closed subcapital fracture of left femur: 5. AMS (altered mental status): Reason for Visit Reason for Visit: Fell on LT hip, shoulder, elbow Hospital Course Hospital Course This is a 85-year-old female with a past medical history of hypertension, hypercholesteremia, who presents to [facility] for a fa1 For her left hip fracture, orthopedic service was consulted, status post left hip hemiarthroplasty - As per general surgery discharged on Lovenox 30 mg subcu every 24 hours for 35 days - Follow-up with orthopedic service - Discharged on Ultram for pain control Altered mental status - UA within normal limits - Chest x-ray no focal findings - CT head no acute findings - Likely an effect of anesthetic, narcotics - On discharge she is alert oriented x 3, follow commands Slurring her words -No other focal neurologic deficits, no receptive aphasia, no productive aphasia, no focal weakness, no paresthesias, no facial droop, no visual deficits -NIH stroke scale 0 -Likely secondary to severe xerostomia -Has a chronic history of xerostomia recently worsened, current xerostomia -CT angiogram of the head no large vessel occlusion -CT head no acute findings -NIH stroke scale -Aspiration precautions - NIH stroke scale remains 0 on discharge, she continues to have although mild slurring of words due to dry mouth, has received artificial saliva/chewing gum, discharged on aspirin, statin For her xerostomia - Could be from anesthetic, narcotics -CTA head and neck findings as below -Will need to see ENT - Continue artificial saliva, chewing gum, with a follow-up with ENT For thyroid nodules - Discussed ultrasound findings Thyroid ultrasound US/US thyroid 49686 IMPRESSION: 1. 2.8 cm solid nodule, right mid thyroid lobe. FNA is recommended. TI-RADS 4 - moderately suspicious. FNA if greater than or equal to 1.5 cm. Ultrasound follow-up at 1, 2, 3 and 5 years, if 1.0 - 1.4 cm. Less than 1.0 cm, no follow-up recommended. 2. 1.0 cm solid hypoechoic nodule, right mid thyroid lobe. Ultrasound follow-up in 1 year is recommended. TI-RADS 4 - moderately suspicious. FNA if greater than or equal to 1.5 cm. Ultrasound follow-up at 1, 2, 3 and 5 years, if 1.0 - 1.4 cm. Less than 1.0 cm, no follow-up recommended. 3. 2.9 cm solid nodule, left mid thyroid lobe. FNA is recommended.TI-RADS 4 - moderately suspicious. FNA if greater than or equal to 1.5 cm. Ultrasound follow-up at 1, 2, 3 and 5 years, if 1.0 - 1.4 cm. Less than 1.0 cm, no follow-up recommended. 4. 0.6 cm solid nodule, left mid thyroid lobe. Ultrasound follow-up in 1 year is recommended.TI-RADS 4 - moderately suspicious. FNA if greater than or equal to 1.5 cm. Ultrasound follow-up at 1, 2, 3 and 5 years, if 1.0 - 1.4 cm. Less than 1.0 cm, no follow-up recommended. 5. No cervical adenopathy. 6. Unremarkable examination of the submandibular glands. CT head and neck -Salivary glands: The parotid glands are symmetric and unremarkable in appearance. The submandibular glands are symmetric and unremarkable in appearance. Thyroid: 29 mm right thyroid nodule. Please see the report of the thyroid ultrasound of today for further details. 1.5 cm left thyroid nodule. Please see the report of the thyroid ultrasound of today for further details. Lymph nodes: The visible mediastinum demonstrates multiple enlarged lymph nodes measuring up to 11 mm in short axis, right paratracheal space, image 6/60. Soft tissues: There is no prevertebral soft tissue swelling. - Will need to follow-up with ENT as outpatient for biopsy CT angiogram of the neck showed The visible mediastinum demonstrates adenopathy with lymph nodes measuring up to 11 mm in short axis. Correlation with follow-up CT chest is recommended to fully evaluate the chest. - Follow-up with primary care, Physical Exam Const: COMMON NORMALS: no acute distress and patient oriented x3 Eye: COMMON NORMALS: Equal, round and reactive pupils present and EOMs intact bilaterally PUPIL: Yes Equal, round and reactive pupils present Resp: COMMON NORMALS: normal respiratory effort, No retractions, No use of accessory muscles and clear to auscultation bilaterally AUSCULTATION: clear to auscultation bilaterally Cardio: COMMON NORMALS: regular rate, regular rhythm, S1 normal heart sound present and S2 normal heart sound present RATE: regular rate RHYTHM: regular rhythm HEART SOUNDS: S1 normal heart sound present and S2 normal heart sound present GI: COMMON NORMALS: Normal to inspection, nondistended, normoactive bowel sounds present and non-tender Extremity: COMMON NORMALS: no calf tenderness and no pedal edema Neuro: COMMON NORMALS: patient oriented x3, CN's II-XII intact bilaterally, moves all extremities and no focal motor deficits Psych: COMMON NORMALS: mental status grossly normal Urinary Catheter Management: Shearer: Cath Placed During This Visit: yes Reason for Continuing Indwelling Catheter: Other Urinary Catheter Date of Insertion: 06/24/25 Urinary Catheter Time of Insertion: 01:40 Discharge Data Studies Completed and Pending Completed Studies During Hospitalization Category Date Time Status CT angio head neck [CT angio headneck* 34238/18017] Cat Scan 06/26/25 09:[address] head wo con* [id number] Stat Cat Scan 06/24/25 16:[address] head wo con* [id number] Stat Cat Scan 06/26/25 09:[address] pelvis wo bone [CT bony pelvis 21993] Stat Cat Scan 06/23/25 23:28 Completed XR chest 1V portable [id number] Routine Exams 06/26/25 09:41 Completed XR chest 1V portable [id number] Stat Exams 06/23/25 22:23 Completed XR elbow LT min 3V* [id number] Stat Exams 06/23/25 22:23 Completed XR femur LT min 2V* [id number] Stat Exams 06/24/25 01:12 Completed XR hip LT 2-3V wo/w pel* [id number] Routine Exams 06/25/25 11:03 Completed XR hip LT 2-3V wo/w pel* [id number] Stat Exams 06/23/25 22:23 Completed XR shoulder LT min 2V* [id number] Stat Exams 06/23/25 22:23 Completed XR wrist LT min 3V* [id number] Stat Exams 06/23/25 22:23 Completed US thyroid [id number] Routine Ultrasound 06/26/25 08:15 Completed Pending at discharge Category Date Time Status C-arm Fluoroscopy [id number] Routine Exams 06/24/25 15:10 Ordered Basic Metabolic Panel AM LABS Lab 06/28/25 04:00 Ordered Complete Blood Count w/Auto AM LABS Lab 06/28/25 04:00 Ordered Urinalysis Routine Lab 06/26/25 09:41 Ordered Radiology Impressions Elbow X-Ray 06/23/25 22:23 IMPRESSION: No acute findings. Shoulder X-Ray 06/23/25 22:23 IMPRESSION: No acute osseous abnormality. Wrist X-Ray 06/23/25 22:23 IMPRESSION: No acute osseous abnormality. Pelvis CT 06/23/25 23:28 IMPRESSION: 1. Minimally displaced subcapital left femoral fracture. 2. The remaining imaged osseous structures are intact. 3. Cholelithiasis without evidence of acute cholecystitis. 4. Soft tissue contusion of the left hip is noted. Femur X-Ray 06/24/25 01:12 IMPRESSION: 1. Stable alignment of the subcapital femoral fracture. 2. No distal femoral fracture. Hip/Pelvis X-Ray 06/25/25 11:03 IMPRESSION: Postoperative changes as described. Thyroid Ultrasound 06/26/25 08:15 IMPRESSION: 1. 2.8 cm solid nodule, right mid thyroid lobe. FNA is recommended. TI-RADS 4 - moderately suspicious. FNA if greater than or equal to 1.5 cm. Ultrasound follow-up at 1, 2, 3 and 5 years, if 1.0 - 1.4 cm. Less than 1.0 cm, no follow-up recommended. 2. 1.0 cm solid hypoechoic nodule, right mid thyroid lobe. Ultrasound follow-up in 1 year is recommended. TI-RADS 4 - moderately suspicious. FNA if greater than or equal to 1.5 cm. Ultrasound follow-up at 1, 2, 3 and 5 years, if 1.0 - 1.4 cm. Less than 1.0 cm, no follow-up recommended. 3. 2.9 cm solid nodule, left mid thyroid lobe. FNA is recommended.TI-RADS 4 - moderately suspicious. FNA if greater than or equal to 1.5 cm. Ultrasound follow-up at 1, 2, 3 and 5 years, if 1.0 - 1.4 cm. Less than 1.0 cm, no follow-up recommended. 4. 0.6 cm solid nodule, left mid thyroid lobe. Ultrasound follow-up in 1 year is recommended.TI-RADS 4 - moderately suspicious. FNA if greater than or equal to 1.5 cm. Ultrasound follow-up at 1, 2, 3 and 5 years, if 1.0 - 1.4 cm. Less than 1.0 cm, no follow-up recommended. 5. No cervical adenopathy. 6. Unremarkable examination of the submandibular glands. Head CT 06/26/25 09:40 IMPRESSION: No acute intracranial pathology. Head/Neck CTA 06/26/25 09:40 IMPRESSION: No large vessel stenosis or occlusion. IMPRESSION: No stenosis or occlusion. The visible mediastinum demonstrates adenopathy with lymph nodes measuring up to 11 mm in short axis. Correlation with follow-up CT chest is recommended to fully evaluate the chest. COMMENTS: Consistent with the [employer]'s Incidental Findings Committee white paper (J Am Abhishek Radiol 2015): In patients aged 35 years and older with an incidental thyroid nodule equal to or greater than 1.[address], MRI or extrathyroidal US, further evaluation with dedicated thyroid US is recommended for patients with normal life expectancy and without comorbidities. For smaller nodules without suspicious features, no further evaluation or follow up is recommended. REFERENCES: NASCET CRITERIA. The degree of stenosis in the cervical segment of the internal carotid artery is based on NASCET criteria. Normal is no stenosis. Mild is less than 50% stenosis. Moderate is 50-69% stenosis. Severe is 70% to 99% stenosis. Total occlusion is no detectable patent lumen. Chest X-Ray 06/26/25 09:41 IMPRESSION: No acute cardiopulmonary process. Laboratory Results WBC 9.72 10^3/uL (3.29-11.43) 06/27/25 03:36 RBC 3.91 10^6/uL (3.85-5.65) 06/27/25 03:36 Hgb 10.80 g/dL (11.27-16.99) L 06/27/25 03:36 Hct 32.7 % (36-47) L 06/27/25 03:36 MCV 83.6 fl (85-98) L 06/27/25 03:36 MCH 27.6 pg (27-33) 06/27/25 03:36 MCHC 33.0 g/dL (30-55) 06/27/25 03:36 RDW 14.4 % (12.1-15.1) 06/27/25 03:36 Plt Count 221 10^3/cmm (157-399) 06/27/25 03:36 MPV 10.1 fL (7.4-10.4) 06/27/25 03:36 Neut % (Auto) 79.8 % 06/27/25 03:36 Lymph % (Auto) 10.7 % 06/27/25 03:36 [place] % (Auto) 7.6 % 06/27/25 03:36 Eos % (Auto) 1.0 % 06/27/25 03:36 Baso % (Auto) 0.2 % 06/27/25 03:36 Neut # (Auto) 7.75 10^3/uL (1.8-7.7) H 06/27/25 03:36 Lymph # (Auto) 1.0 10^3/uL (0.8-4.8) 06/27/25 03:36 [place] # (Auto) 0.7 10^3/uL (0.2-0.9) 06/27/25 03:36 Eos # (Auto) 0.1 10^3/uL (0.0-0.8) 06/27/25 03:36 Baso # (Auto) 0.0 10^3/uL (0.0-0.1) 06/27/25 03:36 Nucleated RBC % (auto) 0 % 06/27/25 03:36 Nucleated RBCs # 0.0 /100WBC 06/27/25 03:36 Sodium 133 mmol/L (136-145) L 06/27/25 03:36 Potassium 3.0 mmol/L (3.5-5.1) L 06/27/25 03:36 Chloride 97 mmol/L (98-107) L 06/27/25 03:36 Carbon Dioxide 25 mmol/L (22-29) 06/27/25 03:36 Anion Gap 14.0 (5-19) 06/27/25 03:36 BUN 11 mg/dL (8-23) 06/27/25 03:36 Creatinine 0.6 mg/dL (0.5-0.9) 06/27/25 03:36 GFR Calculation Not Reportable 06/27/25 03:36 Glucose 132 mg/dL (65-115) H 06/27/25 03:36 Calculated Osmolality 277 mOsm/kg (285-295) L 06/27/25 03:36 Calcium 9.2 mg/dL (8.5-10.5) 06/27/25 03:36 Phosphorus 2.0 mg/dL (2.5-4.5) L 06/25/25 05:19 Total Bilirubin 0.6 mg/dL (0.15-1.2) 06/25/25 05:19 AST 20 U/L (0-32) 06/25/25 05:19 ALT 9 U/L (0-33) 06/25/25 05:19 Alkaline Phosphatase 76 U/L (35-105) 06/25/25 05:19 Total Protein 7.9 g/dL (6.6-8.7) 06/25/25 05:19 Albumin 3.6 g/dL (3.5-5.2) 06/25/25 05:19 Globulin 4.3 g/dL (1.3-4.6) 06/25/25 05:19 Urine Color Yellow (Yellow) 06/26/25 22:24 Urine Appearance Clear (CLEAR) 06/26/25 22:24 Urine pH 7.5 (5-7) 06/26/25 22:24 Ur Specific [place] 1.042 (1.005-1.030) H 06/26/25 22:24 Urine Protein 2+ (Negative) A 06/26/25 22:24 Urine Glucose (UA) Negative (Normal) 06/26/25 22:24 Urine Ketones Negative (Negative) 06/26/25 22:24 Urine Blood Negative (Negative) 06/26/25 22:24 Urine Nitrate Negative (Negative) 06/26/25 22:24 Urine Bilirubin Negative (Negative) 06/26/25 22:24 Urine Urobilinogen 1.0 mg/dL (Negative) 06/26/25 22:24 Ur Leukocyte Esterase Negative (Negative) 06/26/25 22:24 Urine RBC 0-2 /hpf (0-2) 06/26/25 22:24 Urine WBC 0-5 /hpf (0-5) 06/26/25 22:24 Ur Squamous Epith Cells 0-5 /hpf (0-5) 06/26/25 22:24 Amorphous Sediment Not Reportable 06/26/25 22:24 Urine Bacteria None seen /hpf (NONE) 06/26/25 22:24 Hyaline Casts 0.40 /lpf 06/26/25 22:24 Blood Type O Positive 06/24/25 15:21 Rho(D) Type Rh positive 06/24/25 15:21 Antibody Screen Negative 06/24/25 15:21 Vitals Last Vital Signs Temp 98.0 F 06/27/25 12:00 Pulse 105 H 06/27/25 12:00 Resp 17 06/27/25 12:00 BP 136/84 06/27/25 12:00 Pulse Ox 94 06/27/25 12:00 O2 Del Method Room Air 06/27/25 12:00 O2 Flow Rate 2 06/25/25 11:33 Discharge Plan Discharge Patient Disposition: Home Condition: Stable Prescriptions: New atorvastatin 40 mg Tablet 40 mg PO BEDTIME 30 Days Qty: 30 0RF sennosides-docusate sodium [Stool Softener-Laxative] 8.6-50 mg Tablet 2 tab PO BID PRN (Reason: constipation) 30 Days Qty: 120 0RF tramadol 50 mg Tablet 50 mg PO Q6H PRN (Reason: Moderate Pain) 7 Days Qty: 28 0RF enoxaparin 30 mg/0.3 mL Syringe 30 mg SUBCUT Q24H 35 Days Qty: 10.5 0RF Saliva Stimulant [Tomas De Castro] 1 spray mucous membrane Q2H PRN (Reason: dry mouth) 30 Days 0RF Continued aspirin [Adult Low Dose Aspirin] 81 mg tablet,delayed release (DR/EC) 81 mg PO DAILY triamcinolone acetonide 0.1 % cream 1 applic topical DAILY Qty: 15 3RF metoprolol tartrate 25 mg tablet 25 mg PO BID Qty: 180 3RF amlodipine 2.5 mg tablet See Rx Instructions .ROUTE .COMPLEX Qty: 90 1RF Dose Instruction: TAKE 1 TABLET BY MOUTH EVERY DAY Rx Instructions: TAKE 1 TABLET BY MOUTH EVERY DAY zinc gluconate 50 mg Tablet 50 mg PO DAILY Qty: 14 0RF acetaminophen 325 mg capsule 325 mg PO Q4H PRN (Reason: fever or postoperative pain pain) Qty: 60 0RF ascorbic acid (vitamin C) [Vitamin C] 250 mg Tablet 250 mg PO BID guaifenesin [Mucus Relief] 400 mg Tablet 400 mg PO QID PRN (Reason: mucus ) No Action (DME) LSO BRACE See Rx Instructions .Route .MEDSUPPLY Qty: 1 0RF 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 Discharge Order = DC NOW: Discharge Order (Routine); Ordered 06/27/25 Ordered By: Cuong Nielsen Referrals: Saleem Duran MD [Physician, Pulmonology] Referral Note: medistinal adenopathy Abeba Han MD [Primary Care Provider, Family Practice] Moises Mcguire MD [Physician, Ear, Nose, Throat] - 07/18/25 9:00 am Referral Note: thyroid nodule xerostomia Ran Roberts DO [Physician, Orthopedics] - 07/12/25 2:00 pm Discharge Diet: As Directed Discharge Activity: Limit activity as instructed Patient Instructions: Tramadol (By mouth), Enoxaparin (By injection), Acute Wound Care (DC), Opioid Safety, Post Anesthesia Care, Patient Portal & Donte Instructions Activity Restrictions/Additional Instructions: Orthopedic discharge instructions: Patient may weight-bear as tolerated to the operative lower extremity Posterior hip precautions (avoid excess excessive hip flexion past 90 degrees and internal rotation) Take DVT prophylaxis (blood thinner) as prescribed ), Lovenox 30 mg subcu daily for DVT prophylaxis Take pain medication as prescribed Take antinausea medication as needed Supplement with Citracal vitamin D for bone health and healing Ice as needed for pain and swelling Leave Silverlon bandage dressing on for 7 days after that may remove, rinse incision with warm soapy water/shower pat dry keep clean dry and intact and redress with a clean dry dressing. No baths or soaks May supplement for pain with Tylenol [id number] as needed(1000 mg every 8 hours-do not exceed more than 3000mg in 24-hour period) Follow-up in the orthopedic office in 2 weeks from date of surgery Contact the office for any questions or concerns per (fevers, increased drainage or redness around the incision site etc.) - For your dry mouth, continue using sugarless gum, artificial saliva follow-up with ENT -For your thyroid nodule please follow-up with ENT - Your CT of the chest showed mediastinal lymphadenopathy, please follow-up with pulmonary Discharge Attestations Time Spent in Discharge Care*: greater than 30 min Status at Discharge: Cognitive status at discharge: cognitively intact , Behavioral status at discharge: cooperative , Quality Metrics Clinical Quality Measures [ No reported AMI, CVA or VTE this stay] Coding Level of Care Code 72061 Total time (in minutes) for Discharge: 45 Diagnoses Xerostomia K11.7 Essential hypertension I10 Hypertension type: essential hypertension Hypercholesteremia E78.00 Closed subcapital fracture of left femur S72.012A Encounter type: initial encounter AMS (altered mental status) R41.82
--- NOTE | 2025-06-27 15:36 | PC.SOCIAL ---
IMM updated IMM dated and initialed, Copy given to patient and copy put in chart.
== END 2025-06-27 16:00 | disposition skilled nursing facility (03) | DRG 522 ==
LOC: ER 06-24 02:25 → MEDSURG 06-24 03:07
PROVIDERS: Student in an Organized Health Care Education/Training Program; Admitting Provider Internal Medicine; Emergency Provider Physician Assistant; PCP Family Medicine; Visit Provider Family Medicine
PROC: 0SRS0J9 Replacement of Left Hip Joint, Femoral Surface with Synthetic Substitute, Cemented, Open Approach (ICD-10-PCS; principal; 2025-06-25 08:30)
DX: S72.012A Unspecified intracapsular fracture of left femur, initial encounter for closed fracture (principal); W19.XXXA Unspecified fall, initial encounter; I10 Essential (primary) hypertension; M51.369 Other intervertebral disc degeneration, lumbar region without mention of lumbar back pain or lower extremity pain; E78.00 Pure hypercholesterolemia, unspecified; M46.1 Sacroiliitis, not elsewhere classified; Z90.710 Acquired absence of both cervix and uterus; Z90.49 Acquired absence of other specified parts of digestive tract; Z82.49 Family history of ischemic heart disease and other diseases of the circulatory system; Z79.82 Long term (current) use of aspirin; Y92.098 Other place in other non-institutional residence as the place of occurrence of the external cause; K11.7 Disturbances of salivary secretion; R47.81 Slurred speech; R41.82 Altered mental status, unspecified; E04.2 Nontoxic multinodular goiter
CPT/HCPCS: 11721; 17110; 36415; 51702; 70450; 70496; 70498; 71045; 72192; 73030; 73080; 73110; 73502; 73552; 76536; 80048; 80053; 81001; 84100; 85025; 86850; 86900; 93005; 96361; 96372; 96374; 96375; 96376; 97116; 97161; 97167; 97530; 99213; 99285; A4216; C1776; J0690; J0780; J1171; J1200; J1644; J1650; J1885; J2060; J2270; J2405; J2704; J2765; J3010; J3373; J3480; J7030; J7120; J9999; L8699

== ENCOUNTER → 2025-07-08 10:41 | Outpatient (BNVA) | payer MEDICARE, OTHER, SELFPAY | PROVIDERS: PCP Family Medicine; Visit Provider Physician Assistant | DX: Z98.890 Other specified postprocedural states (principal); Z96.649 Presence of unspecified artificial hip joint | CPT/HCPCS: 73502; 99024 ==

== ENCOUNTER → 2025-08-10 10:55 | Outpatient (BNVA) | payer MEDICARE, OTHER, SELFPAY | PROVIDERS: PCP Family Medicine; Visit Provider Family Medicine | DX: D64.9 Anemia, unspecified (principal) | CPT/HCPCS: 85025 ==

== ENCOUNTER → 2025-08-23 10:55 | Outpatient (BNVA) | payer MEDICARE, OTHER, SELFPAY | PROVIDERS: PCP Family Medicine; Visit Provider Physician Assistant | DX: Z98.890 Other specified postprocedural states (principal); Z96.642 Presence of left artificial hip joint | CPT/HCPCS: 73502; 99024 ==